=== PATIENT | male | born 1990 | race Caucasian/White ===

== ENCOUNTER 2022-08-13 13:48 | Emergency (ER) | payer MEDICAID, SELFPAY ==
[2022-08-13 14:46] VITALS: BP 122/103; PULSE 78; RESP 20; TEMP 36.6; O2SAT 99; BMI 23.1
--- NOTE | 2022-08-13 15:03 | ED_ITS ---
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 He describes no history of withdrawal seizures or significant withdrawal problems. He denies other medical issues other than stomach ulcers from drinking. He does not report he has had a history of esophageal varices, he has had no cough, fever, diarrhea, melena, hematochezia. He lives in his . He has no chest pain shortness of breath. He presents to ED for help with his feelings of dehydration and anxiety Related Data Allergies Allergy/AdvReac Type Severity Reaction Status Date / Time No Known Drug Allergies Allergy Verified 08/13/22 14:46 Review of Systems Status of ROS: Reports: 10 or more systems reviewed and unremarkable except as noted in History and below PFSH PFS Social History Smoking Status: Current every day smoker What tobacco products do you use: cigarettes Smoking packs per day: 1 Smoking cigarettes per day: 20.0 Years smoked: 6 Smoking pack-years: 6.00 Do you use any of these nicotine containing products: None Second hand tobacco smoke exposure: Yes How often do you have a drink containing alcohol: 4 or more times a week How many standard drinks containing alcohol do you have on a typical day: 10 or more How often do you have six or more drinks on one occasion: Daily or almost daily AUDIT-C Alcohol total score: 12 Non-prescribed substance use: denies use service: No Exam Narrative: Exam Narrative: Objective: Patient's vital signs are largely unremarkable other than elevated diastolic blood pressure, O2 sat 99% on room air In general alert orient x3, appears non intoxicated, but does smell slightly of alcohol. HEENT is unremarkable no facial asymmetry Pulses regular Abdomen benign soft nontender Extremities are no edema Neurologic not grossly nonfocal Skin warm and dry in the periphery Const: Vital Signs, click to edit/add: Vital Signs - 24 hr 08/13/22 14:46 Temperature 97.8 F Pulse Rate [Pulse Oximeter] 78 Respiratory Rate 20 Blood Pressure [Ri ght Upper Arm] 122/103 H Pulse Oximetry 99 Oxygen Delivery Me thod Room Air Course Vital Signs Vital signs: Initial Vital Signs Temperature 97.8 F 08/13/22 14:46 Temperature Source Temporal Artery Scan 08/13/22 14:46 Pulse Rate 78 08/13/22 14:46 Pulse Rhythm 08/13/22 14:46 Respiratory Rate 20 08/13/22 14:46 Blood Pressure 122/103 H 08/13/22 14:46 Blood Pressure Mean 109 08/13/22 14:46 Blood Pressure Position Supine 08/13/22 14:46 Pulse Oximetry 99 08/13/22 14:46 Oxygen Delivery Method 08/13/22 14:46 Vital Signs Temperature 97.8 F 08/13/22 14:46 Pulse Rate 78 08/13/22 14:46 Respiratory Rate 20 08/13/22 14:46 Blood Pressure 122/103 H 08/13/22 14:46 Pulse Oximetry 99 08/13/22 14:46 Oxygen Delivery Method 08/13/22 14:46 Temperature 97.8 F 08/13/22 14:46 Pulse Rate 78 08/13/22 14:46 Respiratory Rate 20 08/13/22 14:46 Blood Pressure 122/103 H 08/13/22 14:46 Pulse Oximetry 99 08/13/22 14:46 Oxygen Delivery Method 08/13/22 14:46 Medical Decision Making MDM Narrative Medical decision making narrative: Patient is a 32-year-old white male alcoholic who reports not drinking since l ast night, but has significant anxiety, feelings of dehydration, feelings of upset stomach. He has had no vomiting, no melena no hematochezia. Patient's hemodynamics appear stable. The patient this point I think would benefit from IV fluid, IV Ativan for his anxiety, Zofran for nausea, will check his electrolytes and CBC as well as LFT and amylase. Disposition pending findings above. He does report he has a show horse driver to pick him up here Addendum: The patient feels markedly better after Ativan and IV fluid. His laboratory studies look pretty reassuring, he does have elevated liver function test consistent with his heavy alcohol use. His alcohol level is 0.1. I would recommend he talk to a regular physician within the next couple of days regarding anxiety medication, drinking reduction/cessation. He did not want me to set up an appointment with 1 of our clinic doctors here, and prefers to set this up on his own. He can return if there is problems or concerns. Lab Data Labs: Lab Results 08/13/22 08/13/22 08/13/22 Range/Units 15:15 15:15 15:15 WBC 5.59 (4.50-11.00) K/uL RBC 4.67 (4.30-5.90) m/uL Hgb 15.0 (13.5-17.5) gm/dL Hct 43.8 (37.0-53.0) % MCV 94 (80-100) fL MCH 32 (26-34) pg MCHC 34 (32-36) gm/dL RDW Coeff of Magdalena 11.8 (11.5-15.5) % Plt Count 284 (140-440) K/uL Neut % (Auto) 68.4 (42.0-72.0) % Lymph % (Auto) 18.8 L (20-44) % Mckinley % (Auto) 11.1 H (0.0-11.0) % Eos % (Auto) 0.7 (0.0-7.0) % Baso % (Auto) 0.5 (0.0-3.0) % Neut # (Auto) 3.82 (1.7-7.0) K/uL Lymph # (Auto) 1.10 (0.90-2.90) K/uL [place]ck[place]ley # (Auto) 0.60 (0.00-0.90) K/UL Eos # (Auto) 0.04 (0.00-0.50) K/uL Baso # (Auto) 0.03 (0.00-0.30) K/uL Abs Immat Gran (auto) 0.03 (0.00-0.30) K/uL Sodium 139 (135-149) mmol/L Potassium 4.0 (3.6-5.1) mmol/L Chloride 100 (96-114) mmol/L Carbon Dioxide 25 (20-32) mmol/L BUN 9 (5-24) mg/dL Creatinine 0.8 (0.5-1.5) mg/dL Estimated Creat Clear 141.91 Estimated GFR 119 ml/min Glucose 94 (60-115) mg/dL Calcium 9.4 (8.4-10.6) mg/dL Total Bilirubin 0.6 (0.1-1.5) mg/dL Direct Bilirubin 0.1 (0.0-0.5) mg/dL AST 133 H (12-35) U/L ALT 117 H (4-50) U/L Alkaline Phosphatase 100 (40-150) U/L C-Reactive Protein < 0.5 L (0.5-1.0) mg/dL Total Protein 7.8 (6.0-8.3) g/dL Albumin 5.0 (3.3-5.0) g/dL Amylase 81 (18-89) U/L Ethyl Alcohol 0.10 H (0.01-0.03) % Discharge Plan Discharge Clinical Impression: Acute alcoholism, Anxiety, Dehydration Patient Disposition: Home w/ Parent or Adult Condition: Improved Additional Instructions: Seek help to stop drinking, push p.o. fluids, rest, light activity, follow up with regular doctor within the next 2 days, return to ED sooner problems concerns. Activity Level: Light activity Discharge Diet: Low Fat/Low Cholesterol Stand Alone Forms: [employer] Info Instructions
[2022-08-13] MEDS: LORazepam 2 MG/ML inj 1 MG IVP (15:24)
[2022-08-13] MEDS: ONDANSETRON 2 MG/ML inj 4 MG IVP (15:24)
[2022-08-13] MEDS: 0.9 % SODIUM CHLORIDE 1000 ml 1,000 ML 6000 ML IV (15:25)
[2022-08-13 15:41] LABS: Basophils Absolute Auto 0.03 K/uL (0.00-0.30); Basophils Percent Auto 0.5 % (0.0-3.0); Eosinophils Absolute Auto 0.04 K/uL (0.00-0.50); Eosinophils Percent Auto 0.7 % (0.0-7.0); Hematocrit 43.8 % (37.0-53.0); Immature Granulocytes Abs Auto 0.03 K/uL (0.00-0.30); Lymphocytes Percent Auto 18.8 % (20-44); Mean Corpuscular HGB Conc 34 gm/dL (32-36); Mean Corpuscular Hemoglobin 32 pg (26-34); Mean Corpuscular Volume 94 fL (80-100); Monocytes Percent Auto 11.1 % (0.0-11.0); Neutrophils Absolute Auto 3.82 K/uL (1.7-7.0); Neutrophils Percent Auto 68.4 % (42.0-72.0); Platelet Count* 284 K/uL (140-440); RDW Coefficient of Variation % 11.8 % (11.5-15.5); Red Blood Count 4.67 m/uL (4.30-5.90); White Blood Count* 5.59 K/uL (4.50-11.00)
[2022-08-13 15:52] LABS: Slide Review Reflex No
[2022-08-13 15:53] LABS: Chloride* 100 mmol/L (96-114)
[2022-08-13 15:54] LABS: Sodium* 139 mmol/L (135-149)
[2022-08-13 15:55] LABS: Aspartate Amino Transferase* 133 U/L (12-35); Bilirubin Direct* 0.1 mg/dL (0.0-0.5); Bilirubin Total* 0.6 mg/dL (0.1-1.5); Total Protein* 7.8 g/dL (6.0-8.3)
[2022-08-13 15:56] LABS: Alanine Aminotransferase* 117 U/L (4-50); Alkaline Phosphatase* 100 U/L (40-150); Amylase* 81 U/L (18-89); Creatinine* 0.8 mg/dL (0.5-1.5); Est. Creatinine Clearance* 141.91; Estimated Glomerular Filt Rate 119 ml/min
[2022-08-13 15:57] LABS: Blood Urea Nitrogen* 9 mg/dL (5-24); Calcium* 9.4 mg/dL (8.4-10.6); Carbon Dioxide* 25 mmol/L (20-32); Glucose* 94 mg/dL (60-115)
[2022-08-13 16:00] LABS: C Reactive Protein* < 0.5 mg/dL (0.5-1.0)
== END 2022-08-13 16:30 | disposition home or self-care (01) ==
PROVIDERS: Emergency Provider Family Medicine
DX: F10.20 Alcohol dependence, uncomplicated (principal); F41.9 Anxiety disorder, unspecified
CPT/HCPCS: 36415; 80048; 80076; 82077; 82150; 85025; 86140; 87502; 87634; 87635; 96374; 96375; 99284; J2060; J2405; J7030

== ENCOUNTER 2023-03-05 12:56 | Emergency (ER) | payer OTHER, MEDICAID, SELFPAY ==
[2023-03-05] VITALS (9 sets, daily range): BP systolic 115–122; BP diastolic 74–81; PULSE 59–88; RESP 18; TEMP 36.9; O2SAT 99–100; BMI 24.4
--- NOTE | 2023-03-05 13:23 | ED_ITS ---
HPI - General Adult General Chief complaint: Nausea/Vomiting Stated complaint: throwing up blood Time Seen by Provider: 03/05/23 13:08 History of Present Illness HPI narrative: This 33-year-old male comes in reporting upper epigastric abdominal pain with episodes of vomiting. These symptoms began last night. He states that he vomited 4 times in the last couple times hat what looked like blood. The 3rd episode was dark colored and the 4th 1 was more red colored blood. He does comp preet of severe upper epigastric abdominal pain he states that he was a heavy alcohol user and had some associated ulcerations in his abdomen. He quit using alcohol 5 months ago and it has changed his life significantly for the good. He does not report a prior history of pancreatitis. He has not had any ongoing vomiting or sign of GI bleeding for the past 8 or 10 hours. Related Data Previous Rx's Medication Instructions Recorded pantoprazole 20 mg tablet,delayed 20 mg PO DAILY #30 tabs 03/05/23 release (Protonix) Allergies Allergy/AdvReac Type Severity Reaction Status Date / Time No Known Drug Allergies Allergy Verified 03/05/23 13:13 Review of Systems Status of ROS: Reports: 10 or more systems reviewed and unremarkable except as noted in History and below Narrative: Constitutional: No fevers, no weight gain or loss. Eyes: No discharge. No vision changes. HENT: No congestion, no sore throat, no ear pain. Cardiovascular: No chest pain, no palpitations. Respiratory: No shortness of breath, no wheezes, no cough. Gastrointestinal: Upper epigastric abdominal pain. Nausea with vomiting x4 with some evidence of blood in the vomit. Genitourinary: No dysuria, no hematuria. Musculoskeletal: Normal range of motion. Skin: No rashes, no pruritis. Neurological: No dizziness, weakness, sensory change, speech change. Endo/Heme/Allergies: No bruising or bleeding. No polydipsia. Pysch: no suicidality, no anxiety, no insomnia. All other systems reviewed and are negative. [facility] Social History Smoking Status: Current every day smoker What tobacco products do you use: ci garettes Smoking packs per day: 1 Smoking cigarettes per day: 20.0 Years smoked: 6 Smoking pack-years: 6.00 Do you use any of these nicotine containing products: None Second hand tobacco smoke exposure: Yes How often do you have a drink containing alcohol: never How many standard drinks containing alcohol do you have on a typical day: 10 or more How often do you have six or more drinks on one occasion: Never AUDIT-C Alcohol total score: 4 Non-prescribed substance use: denies use service: No Exam Narrative: Exam Narrative: Constitutional: Well-developed, well-nourished, no acute distress. HEENT: Normocephalic, atraumatic. Neck: Normal range of motion. Nontender. Supple. Heart: Regular. No murmurs. Normal rate. Intact distal pulses. Lungs: Clear to auscultation. No chest discomfort. No wheezes, rhonchi, or rales. Abdomen: Normal bowel sounds. Severe tenderness in the upper epigastric region. No rebound tenderness. Genitalia: Deferred. Back: No midline tenderness. Normal range of motion. Extremities: Normal range of motion. No injury. Skin: Intact. No rash. Warm. No erythema or pallor. Neurologic: No altered sensation. No weakness. Alert and oriented. Psychiatric: No suicidality. No anxiety or depression. No insomnia. Nursing notes and vitals signs are reviewed. Const: Vital Signs, click to edit/add: Vital Signs - 24 hr 03/05/23 13:07 Temperature 98.4 F Pulse Rate [Pulse Oximeter] 83 Respiratory Rate 18 Blood Pressure [Ri ght Upper Arm] 122/74 Pulse Oximetry 100 Oxygen Delivery Me thod Room Air Course Vital Signs Vital signs: Initial Vital Signs Temperature 98.4 F 03/05/23 13:07 Temperature Source Temporal Artery Scan 03/05/23 13:07 Pulse Rate 83 03/05/23 13:07 Respiratory Rate 18 03/05/23 13:07 Blood Pressure 122/74 03/05/23 13:07 Blood Pressure Mean 90 03/05/23 13:07 Blood Pressure Position Supine 03/05/23 13:07 Pulse Oximetry 100 03/05/23 13:07 Oxygen Delivery Method Room Air 03/05/23 13:07 Vital Signs Temperature 98.4 F 03/05/23 13:07 Pulse Rate 83 03/05/23 13:07 Respiratory Rate 18 03/05/23 13:07 Blood Pressure 122/74 03/05/23 13:07 Pulse Oximetry 100 03/05/23 13:07 Oxygen Delivery Method Room Air 03/05/23 13:07 Temperature 98.4 F 03/05/23 13:07 Pulse Rate 83 03/05/23 13:07 Respiratory Rate 18 03/05/23 13:07 Blood Pressure 122/74 03/05/23 13:07 Pulse Oximetry 100 03/05/23 13:07 Oxygen Delivery Method Room Air 03/05/23 13:07 Medical Decision Making MDM Narrative Medical decision making narrative: This patient comes in with severe upper epigastric abdominal pain with vomiting episodes as described above. An IV was established and labs are acquired which returned with reassuring results. The patient received a L of normal saline and 4 mg of Zofran. He also received a GI cocktail which brought great relief to his abdominal pain. He states that he is feeling much better. He did receive a prescription for Protonix. I advised him regarding plans going forward if his symptoms are recurrent or worsening. Lab Data Labs: Lab Results 03/05/23 Range/Units 13:40 WBC 8.23 (4.50-11.00) K/uL RBC 5.43 (4.30-5.90) m/uL Hgb 16.2 (13.5-17.5) gm/dL Hct 47.2 (37.0-53.0) % MCV 87 (80-100) fL MCH 30 (26-34) pg MCHC 34 (32-36) gm/dL RDW Coeff of Magdalena 11.9 (11.5-15.5) % Plt Count 281 (140-440) K/uL Neut % (Auto) 86.1 H (42.0-72.0) % Lymph % (Auto) 6.8 L (20-44) % [place] % (Auto) 6.3 (0.0-11.0) % Eos % (Auto) 0.5 (0.0-7.0) % Baso % (Auto) 0.1 (0.0-3.0) % Neut # (Auto) 7.10 H (1.7-7.0) K/uL Lymph # (Auto) 0.60 L (0.90-2.90) K/uL [place] # (Auto) 0.50 (0.00-0.90) K/UL Eos # (Auto) 0.04 (0.00-0.50) K/uL Baso # (Auto) 0.01 (0.00-0.30) K/uL Sodium 138 (135-149) mmol/L Potassium 4.3 (3.6-5.1) mmol/L Chloride 104 (96-114) mmol/L Carbon Dioxide 24 (20-32) mmol/L BUN 19 (5-24) mg/dL Creatinine 0.9 (0.5-1.5) mg/dL Estimated Creat Clear 122.01 Estimated GFR 114 ml/min Glucose 107 (60-115) mg/dL Calcium 9.3 (8.4-10.6) mg/dL Total Bilirubin 0.9 (0.1-1.5) mg/dL Direct Bilirubin 0.2 (0.0-0.5) mg/dL AST 23 (12-35) U/L ALT 36 (4-50) U/L Alkaline Phosphatase 70 (40-150) U/L Total Protein 8.0 (6.0-8.3) g/dL Albumin 4.9 (3.3-5.0) g/dL Lipase 55 (23-300) U/L Discharge Plan Discharge Clinical Impression: Gastritis Patient Disposition: Home, Self-Care Condition: Improved Additional Instructions: Take medication as prescribed. Follow up with MD or return if symptoms are recurrent or worsening. Prescriptions: New pantoprazole [Protonix] 20 mg tablet,delayed release (DR/EC) 20 mg PO DAILY Qty: 30 2RF Follow Up/Referrals: Provider,Not a Local [Primary Care Provider] - Stand Alone Forms: [employer] Info Instructions
--- OUTSIDE RECORDS SUMMARY | 2023-03-05 13:31 | XMS_ITS ---
Author Name Hernandez Chana Address [address] [place] [address] Organization [facility] - Primary Address [address] [place] [phone] Care Team Providers Care Territory Outside Sales Manager Name Role Phone David Chana Unavailable [phone] PROBLEMS Type Condition ICD9-CM Code [id number] Code Onset Dates Condition Status SNOMED Code Problem Post-traumatic stress disorder, chronic F43.12 Active 02446507 ALLERGIES No Known Allergies ENCOUNTERS Encounter Location Date Diagnosis [facility] [address] [address] Nov, Post-traumatic stress disorder, chronic F43.12 [facility] [address] [address] Nov, Post-traumatic stress disorder, chronic F43.12 [facility] Primary [address] [place] [phone] Oct, [facility] Primary [address] [place] [phone] Jun, Post-traumatic stress disorder, chronic F43.12 [facility] - [facility] [address] [place] [phone] May, Post-traumatic stress disorder, chronic F43.12 IMMUNIZATIONS No Known Immunizations SOCIAL HISTORY Qualifiers Date Current Smoker REASON FOR REFERRAL FUNCTIONAL STATUS PLAN OF CARE VITAL SIGNS MEDICATIONS Unknown Medications PROCEDURES Procedure Date Ordered Result Body Site PSYTX PT&/FAMILY 60 MINUTES Nov 16, 2020 PSYTX PT&/FAMILY 60 MINUTES Nov 14, 2020 PSYCH DIAGNOSTIC EVALUATION May 14, 2020 RESULTS No Results REASON FOR VISIT Anxiety, panic attacks, Anxiety, panic attacks, cannabis f/u, PTSD, PTSD, cannabis cert, Anxiety, panic attacks, zoom Insurance Providers Health Insurance Type Health Plan Insurance Address Health Plan Insurance Phone Health Plan Insurance Name Health Plan Coverage Dates Member ID Patient Relationship to Subscriber Patient Address Patient Phone Patient Name Patient Date of Subscriber ID Subscriber Name Subscriber Date of Group No [place] [address] [address] [facility] [address] [place] self Ag Bentley [id number] [facility] [address] [facility] [address] [facility] self Ag Bentley [id number] [facility] [place] [address] [facility] [address] [facility] self Ag Bentley [id number] [facility]
--- OUTSIDE RECORDS SUMMARY | 2023-03-05 13:31 | XMS_ITS ---
Author Name Hernandez Chana Address [address] [place] [phone] Organization [facility] - Primary Address [address] [place] [phone] Care Team Providers Care Signs Sales Representative Name Role Phone David Chana Unavailable [phone] PROBLEMS Type Condition ICD9-CM Code [id number] Code Onset Dates Condition Status SNOMED Code Problem Post-traumatic stress disorder, chronic F43.12 Active [id number] ALLERGIES No Known Allergies ENCOUNTERS Encounter Location Date Diagnosis [facility] [address] [address] Nov, Post-traumatic stress disorder, chronic F43.12 [facility] [address] [address] Nov, Post-traumatic stress disorder, chronic F43.12 [facility] [address] [place] [phone] Oct, [facility] [address] [place] [phone] Jun, Post-traumatic stress disorder, chronic F43.12 [facility] - [facility] [address] [place] [phone] May, Post-traumatic stress disorder, chronic F43.12 IMMUNIZATIONS No Known Immunizations SOCIAL HISTORY Qualifiers Date Current Smoker REASON FOR REFERRAL FUNCTIONAL STATUS PLAN OF CARE VITAL SIGNS MEDICATIONS Unknown Medications PROCEDURES Procedure Date Ordered Result Body Site PSYTX PT&/FAMILY 60 MINUTES Nov 14, 2020 PSYTX PT&/FAMILY 60 MINUTES Nov 16, 2020 PSYCH DIAGNOSTIC EVALUATION May 14, 2020 [...] Subscriber Name Subscriber Date of Group No [facility] [address] [facility] [address] [facility] [place] self Ag Bentley [id number] [facility] [address] [address] [facility] [address] [place] self Ag Bentley [id number] [facility] [address] [facility] [address] [facility] self Ag Bentley [id number] [facility]
[2023-03-05] MEDS: KETOROLAC 30 MG/ML inj IVP (13:41)
[2023-03-05] MEDS: GI COCKTAIL (VISC LIDO/ANTACID) 30 ML PO (13:41)
[2023-03-05] MEDS: ONDANSETRON 2 MG/ML inj 4 MG IVP (13:41)
[2023-03-05] MEDS: 0.9 % SODIUM CHLORIDE 1000 ml 1,000 ML IV (13:44)
[2023-03-05 14:09] LABS: Basophils Absolute Auto 0.01 K/uL (0.00-0.30); Basophils Percent Auto 0.1 % (0.0-3.0); Eosinophils Absolute Auto 0.04 K/uL (0.00-0.50); Eosinophils Percent Auto 0.5 % (0.0-7.0); Hematocrit 47.2 % (37.0-53.0); Hemoglobin* 16.2 gm/dL (13.5-17.5); Immature Granulocytes Abs Auto 0.02 K/uL (0.00-0.30); Immature Granulocytes Pct Auto 0.2 %; Lymphocytes Percent Auto 6.8 % (20-44); Mean Corpuscular HGB Conc 34 gm/dL (32-36); Mean Corpuscular Hemoglobin 30 pg (26-34); Mean Corpuscular Volume 87 fL (80-100); Monocytes Percent Auto 6.3 % (0.0-11.0); Neutrophils Percent Auto 86.1 % (42.0-72.0); Platelet Count* 281 K/uL (140-440); RDW Coefficient of Variation % 11.9 % (11.5-15.5); Red Blood Count 5.43 m/uL (4.30-5.90); White Blood Count* 8.23 K/uL (4.50-11.00)
[2023-03-05 14:13] LABS: Albumin* 4.9 g/dL (3.3-5.0); Chloride* 104 mmol/L (96-114); Sodium* 138 mmol/L (135-149)
[2023-03-05 14:14] LABS: Potassium* 4.3 mmol/L (3.6-5.1)
[2023-03-05 14:16] LABS: Alkaline Phosphatase* 70 U/L (40-150); Aspartate Amino Transferase* 23 U/L (12-35); Bilirubin Direct* 0.2 mg/dL (0.0-0.5); Bilirubin Total* 0.9 mg/dL (0.1-1.5); Blood Urea Nitrogen* 19 mg/dL (5-24); Carbon Dioxide* 24 mmol/L (20-32); Creatinine* 0.9 mg/dL (0.5-1.5); Est. Creatinine Clearance* 122.01; Estimated Glomerular Filt Rate 114 ml/min; Glucose* 107 mg/dL (60-115); Lipase* 55 U/L (23-300)
[2023-03-05 14:17] LABS: Alanine Aminotransferase* 36 U/L (4-50); Calcium* 9.3 mg/dL (8.4-10.6)
[2023-03-05 14:19] LABS: Slide Review Reflex No
== END 2023-03-05 15:12 | disposition home or self-care (01) ==
PROVIDERS: Emergency Provider Emergency Medicine Emergency Medical Services
DX: K29.70 Gastritis, unspecified, without bleeding (principal)
CPT/HCPCS: 36415; 80048; 80076; 83690; 85025; 96374; 96375; 99283; 99284; A9270; J1885; J2405; J7030

== ENCOUNTER 2023-08-04 12:53 | Emergency (ER) | payer MEDICARE, SELFPAY ==
--- OUTSIDE RECORDS SUMMARY | 2023-08-04 14:09 | XMS_ITS | Patient Health Record ---
Author Name Unknown Organization [facility] - Primary Address [address] [facility] [address] [place] [address] Care Team Providers Care Insulator Technician Name Role Phone Different, PCP Primary Care Provider Unavailabl e REASON FOR REFERRAL No Information SOCIAL HISTORY Tobacco Use: Social History Observation Description Date Details (start date - stop date) Current Smoker NA - NA Sex Assigned At : Social History Observation Description Sex Assigned At Unknown Smoking Question Answer Notes Are you a: current smoker How often do you smoke cigarettes? every day How many cigarettes a day do you smoke? 11-20 PROBLEMS Problem Type ICD Code Onset Dates Problem Status W/U Status Risk SNOMED Code Notes Problem Post-traumat ic stress disorder, chronic (F43.12) Active confirmed Posttraumatic stress disorder ([id number]) PLAN OF TREATMENT No Information Insurance Providers Payer Name Payer Address Payer Phone Subscriber Number Group Number Insured Name Patient Relationship to Insured Coverage Start Date Coverage End Date [facility] [address] [place] [address] [id number] Ag Dykes Self - patient is the insured [employer] [facility] [address] [place] [address] [phone] [id number] Ag Dykes Self - patient is the insured MEDICAL (GENERAL) HISTORY Medical History History ICD Code PTSD Surgical History Surgery Date(Month/Year) collar bone Rt Hospitalization History Reason Date(Month/Year) ER with chest pain [place] 03/2020
--- NOTE | 2023-08-04 20:09 | ED.GENADULT ---
HPI - General Adult General Stated complaint: Withdrawal, panic attacks Time Seen by Provider: 08/04/23 14:04 History of Present Illness HPI narrative: This patient presented to the ER on 08/04/2023. He was not seen by myself or another medical provider. He signed refusal and left from the ER lobby. Related Data Previous Rx's Medication Instructions Recorded pantoprazole 20 mg tablet,delayed 20 mg PO DAILY #30 tabs 03/05/23 release (Protonix) Allergies Allergy/AdvReac Type Severity Reaction Status Date / Time No Known Drug Allergies Allergy Verified 03/05/23 13:13 PFSH PFS Social History Smoking Status: Current every day smoker What tobacco products do you use: cigarettes Smoking packs per day: 1 Smoking cigarettes per day: 20.0 Years smoked: 6 Smoking pack-years: 6.00 Do you use any of these nicotine containing products: None Second hand tobacco smoke exposure: Yes How often do you have a drink containing alcohol: never How many standard drinks containing alcohol do you have on a typical day: 10 or more How often do you have six or more drinks on one occasion: Never AUDIT-C Alcohol total score: 4 Non-prescribed substance use: denies use service: No Discharge Plan Discharge Patient Disposition: Left Without Being Seen
== END 2023-08-04 14:11 | disposition left against medical advice (07) ==
LOC: ED 14:07
PROVIDERS: Emergency Provider Emergency Medicine
DX: Z53.21 Procedure and treatment not carried out due to patient leaving prior to being seen by health care provider (principal)
CPT/HCPCS: 99281

== ENCOUNTER 2023-09-13 16:19 | Emergency (ER) | payer MEDICARE, SELFPAY ==
[2023-09-13 16:28] VITALS: BP 136/89; PULSE 78; RESP 18; TEMP 37.1; O2SAT 96; BMI 23.7
--- NOTE | 2023-09-13 17:39 | CRLHL7_ITS ---
For Patients: As a result of the Cures Act, medical imaging exams and procedure reports are released immediately into your electronic medical record. You may view this report before your referring provider. If you have questions, please contact your health care provider. INDICATION: Chest pain TECHNIQUE: Chest 2 views. COMPARISON: None FINDINGS: The heart is normal in size. The pulmonary vasculature is within normal limits. The lungs are clear without focal consolidation, pleural effusion or pneumothorax. Postsurgical changes of the right clavicle. IMPRESSION: No acute process. Dictated by Aurea Landon MD @ 09/13/2023 6:09:40 PM Dictated by: Aurea Landon MD @ 09/13/2023 18:09:46 (Electronically Signed)
[2023-09-13 18:09] LABS: Amphetamine Screen Urine Negative (Negative); Barbiturate Screen Urine Negative (Negative); Benzodiazepines Screen Urine Negative (Negative); Cannabinoid Screen Urine Negative (Negative); Cocaine Screen Urine Negative (Negative); Methadone Screen Urine Negative (Negative); Methamphetamines Screen Urine Negative (Negative); Opiate Screen Urine Negative (Negative); Oxycodone Screen Urine POSITIVE (Negative); Phencyclidine Screen Urine Negative (Negative); Tricyclic Antidepressant Urine Negative (Negative)
--- OUTSIDE RECORDS SUMMARY | 2023-09-13 18:17 | XMS_ITS | Patient Health Record ---
Author Name Unknown Organization [facility] - Primary Address [address] [facility] [address] [place] [address] Care Team Providers Care Toll Testboard Worker Name Role Phone Different, PCP Primary Care [...] chronic (F43.12) Active confirmed Posttraumatic stress disorder ([id number]) PLAN OF TREATMENT No Information Insurance Providers Payer Name Payer Address Payer Phone Subscriber Number Group Number Insured Name Patient Relationship to Insured Coverage Start Date Coverage End Date [facility] [address] [place] [address] [phone] [id number] Ag Dykes Self - patient is the insured [employer] [facility] [address] [place] [address] [phone] [id number] Ag Dykes Self - patient is the insured MEDICAL (GENERAL) HISTORY Medical History History ICD Code PTSD Surgical History Surgery Date(Month/Year) collar bone Rt Hospitalization History Reason Date(Month/Year) ER with chest pain [place] 03/2020
[2023-09-13 18:18] LABS: Basophils Absolute Auto 0.03 K/uL (0.00-0.30); Basophils Percent Auto 0.5 % (0.0-3.0); Eosinophils Absolute Auto 0.02 K/uL (0.00-0.50); Eosinophils Percent Auto 0.3 % (0.0-7.0); Hematocrit 48.3 % (37.0-53.0); Hemoglobin* 16.6 gm/dL (13.5-17.5); Immature Granulocytes Abs Auto 0.03 K/uL (0.00-0.30); Immature Granulocytes Pct Auto 0.5 %; Lymphocytes Absolute Auto 2.21 K/uL (0.90-2.90); Lymphocytes Percent Auto 35.5 % (20-44); Mean Corpuscular HGB Conc 34 gm/dL (32-36); Mean Corpuscular Hemoglobin 31 pg (26-34); Mean Corpuscular Volume 89 fL (80-100); Monocytes Percent Auto 7.2 % (0.0-11.0); Neutrophils Absolute Auto 3.48 K/uL (1.7-7.0); Platelet Count* 272 K/uL (140-440); RDW Coefficient of Variation % 12.5 % (11.5-15.5); Red Blood Count 5.42 m/uL (4.30-5.90); White Blood Count* 6.22 K/uL (4.50-11.00)
[2023-09-13] MEDS: ONDANSETRON 2 MG/ML inj 4 MG IVP (18:18)
[2023-09-13] MEDS: LACTATED RINGERS 1000 ML 1,000 ML IV (18:19)
[2023-09-13] MEDS: THIAMINE 100 MG TABLET PO (18:19)
[2023-09-13] MEDS: LORazepam 2 MG/ML inj 0.5 MG IVP (18:19)
[2023-09-13 18:21] LABS: Albumin* 5.2 g/dL (3.3-5.0); Chloride* 104 mmol/L (96-114); Potassium* 3.6 mmol/L (3.6-5.1); Sodium* 144 mmol/L (135-149)
[2023-09-13 18:24] LABS: Alkaline Phosphatase* 97 U/L (40-150); Anion Gap 16 mEq/L (7-15); Aspartate Amino Transferase* 60 U/L (12-35); Bilirubin Total* 0.6 mg/dL (0.1-1.5); Blood Urea Nitrogen* 11 mg/dL (5-24); Carbon Dioxide* 24 mmol/L (20-32); Creatinine* 0.8 mg/dL (0.5-1.5); Est. Creatinine Clearance* 141.46; Estimated Glomerular Filt Rate 118 ml/min; Glucose* 127 mg/dL (60-115); Lipase* 325 U/L (23-300); Total Protein* 8.7 g/dL (6.0-8.3)
[2023-09-13 18:25] LABS: Alanine Aminotransferase* 55 U/L (4-50); Calcium* 9.6 mg/dL (8.4-10.6); Magnesium* 2.6 mg/dL (1.5-2.6)
[2023-09-13 18:29] LABS: Slide Review Reflex No
--- NOTE | 2023-09-13 19:05 | ED.ALCOHOL ---
HPI - Alcohol General Date Seen: 09/13/23 Chief Complaint: Alcohol/Intoxication Stated Complaint: alc withdrawl, irregular heartbeat Time Seen by Provider: 09/13/23 17:32 Source: patient Mode of arrival: ambulatory Limitations: no limitations History of Present Illness HPI narrative: Patient is a 33-year-old male presenting to emergency department for alcohol intoxication. He states he has been very anxious and dehydrated. States for the past several months he has been drinking 1.75 L of alcohol a day. Says he has had about a L worth of alcohol today. Surgery again this morning at 07:30. States his last drink was about 2 hours ago. Patient states he is concerned he was withdrawing so he came to the emergency department. Denies hallucinations, shortness of breath, weakness, numbness, headache, vision changes. He states he feels very dehydrated. This states he has been having chest pain for the past couple days. Denies having symptoms like this before. Related Data Allergies Allergy/AdvReac Type Severity Reaction Status Date / Time No Known Drug Allergies Allergy Verified 03/05/23 13:13 Review of Systems Status of ROS Reports: 10 or more systems reviewed and unremarkable except as noted in History and below [facility] Social History Smoking Status: Current every day smoker What tobacco products do you use: cigarettes Smoking packs per day: 1 Smoking cigarettes per day: 20.0 Years smoked: 6 Smoking pack-years: 6.00 Do you use any of these nicotine containing products: None Second hand tobacco smoke exposure: Yes How often do you have a drink containing alcohol: never How many standard drinks containing alcohol do you have on a typical day: 10 or more How often do you have six or more drinks on one occasion: Never AUDIT-C Alcohol total score: 4 Non-prescribed substance use: denies use service: No Exam Narrative: Exam Narrative: Const: Well-nourished, Well-developed, in mild distress Eyes: PERRL, no conjunctival injection, and symmetrical lids HENT: Atraumatic external nose and ears. Moist mucous membranes. Neck: Symmetric, trachea midline, No thyromegaly. CVS: RRR, No murmurs or gallops. Peripheral pulses 2+ and equal in all extremities RESP: Unlabored respiratory effort. Clear to auscultation bilaterally. GI: Nontender/Nondistended, No rebound or guarding. MSK:Extremities w/o deformity, Normal Active ROM Skin: Warm, Dry. No rashes or lesions. Neuro: Normal Muscle tone, No focal neurological deficits. Psych: Awake, Alert, & Oriented x3. Appropriate mood and affect. Const: Vital Signs, click to edit/add: Vital Signs - 24 hr 09/13/23 16:28 Temperature 98.7 F Pulse Rate [Pulse Oximeter] 78 Respiratory Rate 18 Blood Pressure [Ri ght Upper Arm] 136/89 Pulse Oximetry 96 Oxygen Delivery Me thod Room Air Course Vital Signs Vital signs: Initial Vital Signs Temperature 98.7 F 09/13/23 16:28 Temperature Source Temporal Artery Scan 09/13/23 16:28 Pulse Rate 78 09/13/23 16:28 Respiratory Rate 18 09/13/23 16:28 Blood Pressure 136/89 09/13/23 16:28 Blood Pressure Mean 104 09/13/23 16:28 Blood Pressure Position Supine 09/13/23 16:28 Pulse Oximetry 96 09/13/23 16:28 Oxygen Delivery Method Room Air 09/13/23 16:28 Vital Signs Temperature 98.7 F 09/13/23 16:28 Pulse Rate 78 09/13/23 16:28 Respiratory Rate 18 09/13/23 16:28 Blood Pressure 136/89 09/13/23 16:28 Pulse Oximetry 96 09/13/23 16:28 Oxygen Delivery Method Room Air 09/13/23 16:28 Temperature 98.7 F 09/13/23 16:28 Pulse Rate 78 09/13/23 16:28 Respiratory Rate 18 09/13/23 16:28 Blood Pressure 136/89 09/13/23 16:28 Pulse Oximetry 96 09/13/23 16:28 Oxygen Delivery Method Room Air 09/13/23 16:28 MDM - Alcohol MDM Narrative Medical decision making narrative: Patient is a 33-year-old male presenting emergency department her alcohol intoxication. He is here with his mom. He states he is set up to go to detox tomorrow morning and is just looking to help get by until then. States he is feeling dehydrated and very anxious. He is also having chest pain so cardiac workup was ordered. Chest x-ray, EKG, CMP, troponin, lipase, CBC, magnesium ordered. Also ordered a urine drug screen. Was given Zofran for nausea and Ativan for anxiety. Also given thiamine. Given 1 L of lactated Ringer's for dehydration. Lab ago returned showing no concerning abnormalities. Troponin within normal limits. AST and ALT are mildly elevated but not to the point where this of emergent concern. Drug screen is positive for oxycodone. Was was lab work showed no concerning findings. He is feeling better after medication but is still feeling anxious mildly in the lower dose of Ativan was given this time p.o.. He was concerned about withdrawals but considering the amount she drank an ritter recent his last drink was she this very unlikely be going through withdrawals at this time. He is resting comfortably in bed in over discharged home. He is agreeable to this plan. He is able to answer all questions appropriately in ambulate on his own safety. Lab Data Labs: Lab Results 09/13/23 09/13/23 09/13/23 Range/Units 17:39 17:43 17:54 WBC 6.22 (4.50-11.00) K/uL RBC 5.42 (4.30-5.90) m/uL Hgb 16.6 (13.5-17.5) gm/dL Hct 48.3 (37.0-53.0) % MCV 89 (80-100) fL MCH 31 (26-34) pg MCHC 34 (32-36) gm/dL RDW Coeff of Magdalena 12.5 (11.5-15.5) % Plt Count 272 (140-440) K/uL Neut % (Auto) 56.0 (42.0-72.0) % Lymph % (Auto) 35.5 (20-44) % [place] % (Auto) 7.2 (0.0-11.0) % Eos % (Auto) 0.3 (0.0-7.0) % Baso % (Auto) 0.5 (0.0-3.0) % Neut # (Auto) 3.48 (1.7-7.0) K/uL Lymph # (Auto) 2.21 (0.90-2.90) K/uL [place] # (Auto) 0.40 (0.00-0.90) K/UL Eos # (Auto) 0.02 (0.00-0.50) K/uL Baso # (Auto) 0.03 (0.00-0.30) K/uL Abs Immat Gran (auto) 0.03 (0.00-0.30) K/uL Imm/Tot Granulo (auto) 0.5 % Sodium 144 (135-149) mmol/L Potassium 3.6 (3.6-5.1) mmol/L Chloride 104 (96-114) mmol/L Carbon Dioxide 24 (20-32) mmol/L Anion Gap 16 H (7-15) mEq/L BUN 11 (5-24) mg/dL Creatinine 0.8 (0.5-1.5) mg/dL Estimated Creat Clear 141.46 Estimated GFR 118 ml/min Glucose 127 H (60-115) mg/dL Calcium 9.6 (8.4-10.6) mg/dL Magnesium 2.6 (1.5-2.6) mg/dL Total Bilirubin 0.6 (0.1-1.5) mg/dL AST 60 H (12-35) U/L ALT 55 H (4-50) U/L Alkaline Phosphatase 97 (40-150) U/L Total Protein 8.7 H (6.0-8.3) g/dL Albumin 5.2 H (3.3-5.0) g/dL Lipase 325 H (23-300) U/L Urine Opiates Screen Negative (Negative) Ur Oxycodone Screen POSITIVE A (Negative) Urine Methadone Screen Negative (Negative) Ur Propoxyphene Screen Not Reportable Ur Barbiturates Screen Negative (Negative) U Tricyclic Antidepress Negative (Negative) Ur Phencyclidine Scrn Negative (Negative) Ur Amphetamines Screen Negative (Negative) U Methamphetamines Scrn Negative (Negative) U Benzodiazepines Scrn Negative (Negative) Urine Cocaine Screen Negative (Negative) U Marijuana (THC) Screen Negative (Negative) Ur Drug Screen Comment See Note POC Troponin I 0.00 L (0.01-0.04) ng/ml Imaging Data Chest x-ray: Radiologist's impression: No acute process. Dictated by Aurea Landon MD @ 09/13/2023 6:09:40 PM ECG Data Attestation: I personally reviewed and interpreted this ECG as follows: Interpretation: Sinus tachycardia rate 102 beats per minute, normal intervals, normal axis, no ST or T-wave abnormalities Discharge Plan Discharge Clinical Impression: Alcoholic intoxication Qualifiers: Complication of substance-induced condition: uncomplicated Qualified Code(s): F10.920 - Alcohol use, unspecified with intoxication, uncomplicated Patient Disposition: Home, Self-Care Condition: Stable Instructions: Abuse of Alcohol (DC), Alcohol Withdrawal (ED) Additional Instructions: Follow-up with the detox center you are planning to see tomorrow. Return for new worsening symptoms. Signs of withdrawal including tremulousness, nausea/vomiting, insomnia, anxiety, seizures, hallucinations. Symptoms do not start for a paced 6 hours after last drink. Follow Up/Referrals: Provider,Not a Local [Primary Care Provider] - Stand Alone Forms: [email or web address] Info Instructions
[2023-09-13] MEDS: LORazepam 0.5 MG TABLET PO (19:34)
== END 2023-09-13 19:43 | disposition home or self-care (01) ==
PROVIDERS: Emergency Provider Student in an Organized Health Care Education/Training Program
DX: F10.129 Alcohol abuse with intoxication, unspecified (principal)
CPT/HCPCS: 36415; 71046; 80053; 80306; 83690; 83735; 84484; 85025; 96374; 96375; 99283; 99284; A9270; J2060; J2405; J7120

== ENCOUNTER 2024-03-12 14:28 | Emergency (ER) | payer MEDICARE, SELFPAY ==
[2024-03-12 14:32] VITALS: BP 131/89; PULSE 104; RESP 28; TEMP 36.6; O2SAT 99; BMI 25.1
--- NOTE | 2024-03-12 15:07 | ED_ITS ---
HPI - General Adult General Chief complaint: Dental/Oral/Mouth Injury/Pain Stated complaint: tooth infection Time Seen by Provider: 03/12/24 14:45 History of Present Illness HPI narrative: Patient here with upper left tooth pain x1 month. Has not seen a denist. History of alcoholism, said he fell off the wagon with the pain and has been using alcohol. Also endorses he is having anxiety. 34-year-old man presenting to the emergency department. He describes himself as being dehydrated and would like some IV fluids. Admittedly he has been drinking to deal with the pain that he has been having the left side of his face for the last month. He does admit to cracking his jaw a lot. Has had chronic neck and back issues sounds like what amounts to ?out of alignment? and does visit the chiropractor. About a month ago after cracking his jaw as per usual fashion he started having increased pain along the left side of his face. Pain and has alternated somewhat from the right to the left but seems to have settled more in the left. He believes is little swollen here. There has been no drainage does not believe that he is a tooth problem or least has not had before. He says he takes good care of his teeth and flosses. He is worried that he does have a dental infection at this point. No cold or heat sensitivity. Gets yearly cleanings. He does though grind his teeth. Endorses also lot of stress in his life. 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 Struggles with anxiety. Sister and mother have just moved to [place]. Father recently who was his best friend. Has also reached the end of a 5 year relationship recently as well. Says was doing well up until 6 days ago when went on a ?callahan?. Typically attends twice daily AA meetings. Does have 2 sponsors. Does recount alcohol withdrawal to some degree and reports that has self-detoxed typically. Apparently no seizures or hallucinations. Related Data Home Medications Medication Instructions Recorded Confirmed No Known Home Medications 03/13/24 03/13/24 Allergies Allergy/AdvReac Type Severity Reaction Status Date / Time No Known Drug Allergies Allergy Verified 03/05/23 13:13 Review of Systems Status of ROS: Reports: 6 or more systems reviewed and unremarkable except as noted in History and below PFSH PFS Social History Smoking Status: Current every day smoker What tobacco products do you use: cigarettes Smoking packs per day: 1 Smoking cigarettes per day: 20.0 Years smoked: 6 Smoking pack-years: 6.00 Do you use any of these nicotine containing products: None Second hand tobacco smoke exposure: Yes How often do you have a drink containing alcohol: never How many standard drinks containing alcohol do you have on a typical day: 10 or more How often do you have six or more drinks on one occasion: Never AUDIT-C Alcohol total score: 4 Non-prescribed substance use: denies use service: No Exam Narrative: Exam Narrative: Generally pleasant. Initially agitated. Calms over further conversation. Breathing easily. Carefully groomed with cowboy style/Western attire. Is numerous turquoise rings bracelets. Is not slurring his words though does appear to be intoxicated. Skin is warm and dry without evidence of injury. Moving all extremities without difficulty. Head is atraumatic. Neck is supple without lymphadenopathy. Dentition in good repair without reproducible tenderness. No swellings in the mouth. I can appreciate a slight asymmetry externally fullness in the right cheek versus the left but really nothing significant. There are no erythematous changes. Has no swelling specifically of the parotid gland. Area of maximal tenderness as he describes it appears to be in the left anterior masseter muscle. Somewhat but not primarily in the TMJ joint. TMs are clear. Ear canals without inflammation. No pain to palpation along the mandible or the upper jaw/maxilla directly. Heart is in elevated rate regular rhythm. Const: Vital Signs, click to edit/add: Vital Signs - 24 hr 03/12/24 14:32 Temperature 97.8 F Pulse Rate [Pulse Oximeter] 104 H Respiratory Rate 28 H Blood Pressure [Ri ght Upper Arm] 131/89 Pulse Oximetry 99 Oxygen Delivery Me thod Room Air Documenting provider has reviewed patient's vital signs: yes Course Vital Signs Vital signs: Initial Vital Signs Temperature 97.8 F 03/12/24 14:32 Temperature Source Temporal Artery Scan 03/12/24 14:32 Pulse Rate 104 H 03/12/24 14:32 Pulse Rhythm Regular 03/12/24 14:32 Respiratory Rate 28 H 03/12/24 14:32 Blood Pressure 131/89 03/12/24 14:32 Blood Pressure Mean 103 03/12/24 14:32 Blood Pressure Position Sitting 03/12/24 14:32 Pulse Oximetry 99 03/12/24 14:32 Oxygen Delivery Method Room Air 03/12/24 14:32 Vital Signs Temperature 97.8 F 03/12/24 14:32 Pulse Rate 104 H 03/12/24 14:32 Respiratory Rate 28 H 03/12/24 14:32 Blood Pressure 131/89 03/12/24 14:32 Pulse Oximetry 99 03/12/24 14:32 Oxygen Delivery Method Room Air 03/12/24 14:32 Temperature 97.8 F 03/12/24 14:32 Pulse Rate 104 H 03/12/24 14:32 Respiratory Rate 28 H 03/12/24 14:32 Blood Pressure 131/89 03/12/24 14:32 Pulse Oximetry 99 03/12/24 14:32 Oxygen Delivery Method Room Air 03/12/24 14:32 Medications Administered Medications: Discontinued Medications Generic Name Dose Route Start Last Admin Trade Name Elliotq PRN Reason Stop Dose Admin Folic Acid 1 mg/ Multivitamins 1,011.2 mls @ 1,000 mls/hr 03/12/24 15:28 03/12/24 17:29 10 ml/ Thiamine HCl 100 mg/ IV 03/12/24 16:28 Infused Sodium Chloride .Q1H1M LETI Infusion Lorazepam 1 mg 03/12/24 15:29 03/12/24 16:04 Lorazepam 2 Mg/Ml Inj IVP 03/12/24 15:30 1 mg ONCE ONE Administration Ondansetron HCl 4 mg 03/12/24 15:28 03/12/24 16:04 Ondansetron 2 Mg/Ml Inj IVP 03/12/24 15:29 4 mg ONCE ONE Administration Medical Decision Making MDM Narrative Medical decision making narrative: I suppose it is possible there is a tooth issue here but I can not reproduce it. I do think most likely this is temporomandibular joint dysfunction with regional pain. Certainly describes holding stress in this area. Complicating also is tendency to alcohol abuse/alcoholism. He intends towards self detox and is not interested in more formal detox at this time. He would however like some help with anxiety and a chance to rest. He is requesting banana bag if possible. And something for nausea. I think this is fine. We can treat this somewhat as a headache as well. Is anticipating playing a show this evening a believe in [place]. Treatment as above. Allowed to rest... sleep in the emergency department. Woke feeling markedly improved. Just prior to departure is requesting something further for nausea and anxiety going forward. In addition to outpatient follow-up recommended, I did prescribe hydroxyzine and Zofran. See patient discharge plan for further discussion Discharge Plan Discharge Clinical Impression: Jaw pain Patient Disposition: Home w/ Parent or Adult Condition: Improved Additional Instructions: It does appear as though you are having some pain related to the temporomandibular joint. I can not clearly identify a dental problem otherwise. I would get yourself a soft moldable silicone bite guard. Should be able to pick one of these up at [employer] or [employer]. Recommendations would be to wear this most nights for now. Can also search and fairly easily find TMJ exercises online to do once or twice a day However if this is not settling down in a few days or you have increased swelling, I would make available some penicillin to you. Would also take this list of dental clinics for follow-up if needed. They are also helpful in treating TMJ pain. Can take up to 800 mg of ibuprofen or up to 1000 mg of acetaminophen per dose. Alternative to the ibuprofen might be up to 500 mg naproxen 2 times daily. You do certainly have reasons to be experiencing a lot of stress which can manifest in physical pain. Yes. I do think it would be a good idea to reestablish with primary care. Sometimes medications are helpful to take enough of the edge off for one to begin self-sustaining better habits. Would also be a good idea to begin talking about what you are struggling with; though attending meetings and talking with your sponsor is certainly is a good place to start. Admitted we are limited in our ability to make arrangements/appointments over the weekend but here also is a list of mental health resources in [place] that might be helpful to you. Try to get in a little heart-pumping exercise most days of the week. Try to get quality and regular sleep. It's good to be up in time to experience the morning sun. Best wishes with your show this evening. sending in hydroxyzine for temporary relief of anxiety and zofran for nausea. Prescriptions: No Action No Known Home Medications Follow Up/Referrals: Provider,Not a Local [Primary Care Provider] - Stand Alone Forms: [facility] Info Instructions
--- OUTSIDE RECORDS SUMMARY | 2024-03-12 15:35 | XMS_ITS | Referral Summary ---
Author Name Unknown Organization [place] Address [id number] [place] [address] Care Team Providers Care Resource Development Manager Name Role Phone [facility] Primary Care Provider Allergies No known active allergies Medications Medication Sig Dispensed Refills Start Date End Date Status divalproex sodium delayed-release (DEPAKOTE) [address] tabletIndications:A lcohol use disorder, severe, dependence (H) 2 po bid x7d then 1 po bid 70 tablet 01/30/2021 Active cloNIDine (CATAPRES) 0.1 MG tabletIndications:A lcohol use disorder, severe, dependence (H) Take 1 tablet (0.1 mg) by mouth every 6 hours as needed (withdrawal symptoms) 60 tablet 01/30/2021 Active hydrOXYzine (VISTARIL) 25 MG capsuleIndications: Alcohol use disorder, severe, dependence (H) Take 1-2 capsules (25-50 mg) by mouth 3 times daily as needed for anxiety 90 capsule 01/30/2021 Active ondansetron (ZOFRAN) 8 MG tabletIndications:A lcohol use disorder, severe, dependence (H) Take 1 tablet (8 mg) by mouth every 8 hours as needed for nausea 30 tablet 01/30/2021 Active chlordiazePOXIDE (LIBRIUM) 25 MG capsule Take 1 capsule (25 mg) by mouth 3 times daily as needed for withdrawal 30 capsule 08/25/2021 Active Social History Tobacco Use Types Packs/Day Years Used Date Smoking Tobacco: Every Day Cigarettes Smokeless Tobacco: Never Alcohol Use Standard Drinks/Week Comments Not Currently 0 (1 standard drink = 0.6 oz pur e alcohol) Adolescent Education Answer Date Record ed Getting School Help Needed Not on file 08/16 Sex and Gender Information Value Date Recorded Sex Assigned at Not on file Gender Identity Not on file Sexual Orientation Not on file Last Filed Vital Signs Vital Sign Reading Time Taken Comments Blood Pressure 130/85 06/07/2022 6:10 PM CDT Pulse 65 06/07/2022 6:10 PM CDT Temperature 36.5 ??C (97.7 ??F) 06/07/2022 4:00 PM CD T Respiratory Rate 15 06/07/2022 6:10 PM CDT Oxygen Saturation 100% 06/07/2022 6:10 PM CDT Inhaled Oxygen Concentration - - Weight 79.4 kg (175 lb) 06/07/2022 4:00 PM CDT Height 180.3 cm (5' 11) 06/07/2022 4:00 PM CDT Body Mass Index 24.41 06/07/2022 4:00 PM CDT Plan of Treatment Not on file Procedures Procedure Name Priority Date/Time Associated Diagnosis Comments COMPREHENSIVE METABOLIC PANEL STAT 06/07/2022 4:39 PM CDT from Last 3 Months or Most Recently Relevant to Health Maintenance Results * (ABNORMAL) Comprehensive metabolic panel (06/07/2022 4:39 PM CDT) Sodium 141 136 - 145 mmol/L 06/07/2022 5:04 PM CDT LAB[facility]AT[facility] Potassium 4.2 3.4 - 5.3 mmol/L 06/07/2022 5:04 PM CDT LABORATORY Creatinine 0.91 0.67 - 1.17 mg/dL 06/07/2022 5:04 PM CDT [facility] Urea Nitrogen 7.8 6.0 - 20.0 mg/dL 06/07/2022 5:04 PM CDT LABORATORY Chloride 101 98 - 107 mmol/L 06/07/2022 5:04 PM CDT [facility] Carbon Dioxide (CO2) 25 22 - 29 mmol/L 06/07/2022 5:04 PM CDT LABORATORY Anion Gap 15 7 - 15 mmol/L 06/07/2022 5:04 PM CDT LABORATORY Glucose 99 70 - 99 mg/dL 06/07/2022 5:04 PM CDT [facility] Calcium 9.7 8.6 - 10.0 mg/dL 06/07/2022 5:04 PM CDT [facility] Protein Total 8.1 6.4 - 8.3 g/dL 06/07/2022 5:04 PM CDT [facility] Albumin 5.3(H) 3.5 - 5.2 g/dL 06/07/2022 5:04 PM CDT [facility] Bilirubin Total 0.6 <=1.2 mg/dL 06/07/2022 5:04 PM CDT [facility] Alkaline Phosphatase 90 40 - 129 U/L 06/07/2022 5:04 PM CDT [facility] AST 40 10 - 50 U/L 06/07/2022 5:04 PM CDT [facility] ALT 36 10 - 50 U/L 06/07/2022 5:04 PM CDT [facility] GFR Estimate >90 >60 mL/min/1.7 3m2 06/07/2022 5:04 PM CDT [facility] Comment:Effective October 102020 eGFRcr in adults is calculated using the 2020 CKD-EPI creatinine equation which includes age and gender (Zuleyma et al., NEJM, DOI: 10.1056/PUVBql4609149) Blood STRUCTURE OF RIGHT UPPER LIMB / Unknown Venipuncture / Unknown 06/07/2022 4:39 PM CDT 06/07/2022 4:43 PM CDT Brad Cummings MD LAB - BLOOD ORDER ANA [facility] [address] Lab (1st floor, no room number) [place] [address], [facility] [phone] from Last 3 Months or Most Recently Relevant to Health Maintenance Care Teams Resource Development Manager Relationship Specialty Start Date End Date Clinic - [address] [address] PCP - General Internal Medicine 12/18/19
--- OUTSIDE RECORDS SUMMARY | 2024-03-12 15:35 | XMS_ITS | Patient Health Record ---
Author Name Unknown Organization [facility] - Primary Address [address] [place] [address] Care Team Providers Care Box Inspector Name Role Phone Different, PCP Primary Care [...] chronic (F43.12) Active confirmed Posttraumatic stress disorder ([id number]) PLAN OF TREATMENT No Information Insurance Providers Payer Name Payer Address Payer Phone Subscriber Number Group Number Insured Name Patient Relationship to Insured Coverage Start Date Coverage End Date [facility] [address] [place] [address] [id number] Ag Dykes Self - patient is the insured [facility] [address] [place] [address] [id number] Ag Dykes Self - patient is the insured MEDICAL (GENERAL) HISTORY Medical History History ICD Code PTSD Surgical History Surgery Date(Month/Year) collar bone Rt Hospitalization History Reason Date(Month/Year) ER with chest pain [place] 03/2020
--- OUTSIDE RECORDS SUMMARY | 2024-03-12 15:35 | XMS_ITS | Clinical Summary ---
Author Name Unknown Organization [facility] Address [address] [place] [address] Care Team Providers Care Slot Operations Manager Name Role Phone [facility] Primary Care Provider Allergies No [...] needed for withdrawal 30 capsule 08/25/2021 Active Family History Medical History Relation Comments Alcoholism Father Relation Status Comments Father Social History Tobacco Use Types Packs/Day Years [...] 06/07/2022 4:00 PM CDT Plan of Treatment Health Maintenance Due Date Last Done Comments ADVANCE CARE PLANNING 1988 ANNUAL REVIEW OF HM ORDERS 1988 YEARLY PREVENTIVE VISIT 1988 Pneumococcal Vaccine: Pediatrics (0 to 5 Years) and At-Risk Patients (6 to 64 Years) (1 of 2 - PCV) 01/17/1994 HIV SCREENING 01/17/2003 HEPATITIS C SCREENING 01/17/2006 HEPATITIS B IMMUNIZATION (1 of 3 - 19+ 3-dose series) 01/17/2007 DTAP/TDAP/TD IMMUNIZATION (2 - Td or Tdap) 01/06/2021 01/06/2011 COVID-19 Vaccine (1 - 2022-24 season) 2023 INFLUENZA VACCINE (#1) 2023 PHQ-2 (once per calendar year) 2023 GLUCOSE 06/07/2025 06/07/2022, 08/09, 06/18/2021, Additional history exists HPV IMMUNIZATION Aged Out No longer e ligible based on patient's age to complete this topic IPV IMMUNIZATION Aged Out No longer e ligible based on patient's age to complete this topic MENINGITIS IMMUNIZATION Aged Out No l onger eligible based on patient's age to complete this topic RSV MONOCLONAL ANTIBODY Aged Out No l onger eligible based on patient's age to complete this topic Procedures Procedure Name Priority Date/Time Associated Diagnosis Comments COMPREHENSIVE METABOLIC PANEL STAT 06/07/2022 4:39 PM CDT from Last 3 Months or Most Recently Relevant to Health Maintenance Results * (ABNORMAL) Comprehensive metabolic panel (06/07/2022 4:39 PM CDT) Sodium 141 136 - 145 mmol/L 06/07/2022 5:04 PM CDT [facility] Potassium 4.2 3.4 - 5.3 mmol/L 06/07/2022 5:04 PM CDT [facility] Creatinine 0.91 0.67 - 1.17 mg/dL 06/07/2022 5:04 PM CDT [facility] Urea Nitrogen 7.8 6.0 - 20.0 mg/dL 06/07/2022 5:04 PM CDT [facility] Chloride 101 98 - 107 mmol/L 06/07/2022 5:04 PM CDT [facility] Carbon Dioxide (CO2) 25 22 - 29 mmol/L 06/07/2022 5:04 PM CDT [facility] Anion Gap 15 7 - 15 mmol/L 06/07/2022 5:04 PM CDT [facility] Glucose 99 70 - 99 mg/dL [...] >60 mL/min/1.7 3m2 06/07/2022 5:04 PM [facility] LAB[facility] Comment:Effective October 102020 eGFRcr in adults is calculated using the 2020 CKD-EPI creatinine equation which includes age and gender (Technical Support Engineer et al., NEJ, DOI: 10.1056/BKZCmo0839773) Blood STRUCTURE OF RIGHT UPPER LIMB / Unknown Venipuncture / Unknown 06/07/2022 4:39 PM CDT 06/07/2022 4:43 PM CDT Brad Cummings MD LAB - BLOOD ORDER ANA LABORATORY [facility] [address] [facility] (1st floor, no room number) [place] [address], [facility] [phone] from Last 3 Months or Most Recently Relevant to Health Maintenance Care Teams Slot Operations Manager Relationship Specialty Start Date End Date Clinic - [facility] [address] [place] [address] PCP - General Internal Medicine 12/18/19
--- OUTSIDE RECORDS SUMMARY | 2024-03-12 15:35 | XMS_ITS | Encounter Summary ---
Author Name Unknown Organization [place] Address [facility] [place] [address] Care Team Providers Care Board Layer Name Role Phone [facility] Primary Care Provider Encounter Details Date Type Department Care Team (Late st Contact Info) Description 08/25/2021 Documentation Only INTERFACED REPORT Unknown, Provider Social History Tobacco Use Types Packs/Day Years Used Date Smoking Tobacco: Every Day Cigarettes Smokeless Tobacco: Never Alcohol Use Standard Drinks/Week Comments Not Currently 0 (1 standard drink = 0.6 oz pur e alcohol) Sex and Gender Information Value Date Recorded Sex Assigned at Not on file Gender Identity Not on file Sexual Orientation Not on file COVID-19 Exposure Response Date Recorded In the last month, have you been in contact with someone who was confirmed or suspected to have Coronavirus / COVID-19? No / Unsure 08/25/2021 4:45 PM CDT documented as of this encounter Plan of Treatment Not on file documented as of this encounter Visit Diagnoses Not on filedocumented in this encounter Care Teams Board Layer Relationship Specialty Start Date End Date [facility] [address] [place], [place] [address] PCP - General Internal Medicine 12/18/19 documented as of this encounter
--- OUTSIDE RECORDS SUMMARY | 2024-03-12 15:35 | XMS_ITS | Clinical Summary ---
Author Name Unknown Organization [facility] Address [place], [place] [address] Care Team Providers Care Aircraft Skin Burnisher Name Role Phone Katerina Jules Primary Care Provider Allergies No known active allergies Medications No known medications Active Problems Problem Noted Date Diagnosed Date Alcohol use disorder 01/12/2024 Resolved Problems Problem Noted Date Diagnosed Date Resolved Date Unspecified part of closed f racture of clavicle 01/05/2011 01/12/2024 Encounters Date Type Department Care Team Description 01/14/2024 Telephone [facility] [address] [place] [address] Katerina Jules PA Results 01/12/2024 11:30 AM QUARTZ ORIENTATOR Office Visit [facility] [address] [place] [address] Katerina Jules PA Concerns (wants to have liver work up- alcoholism and concerns with bloating and inability to eat much. ); STD (no symptoms or exposure that he is aware of) 01/12/2024 Travel 01/08/2024 Nurse Triage [facility] [address] [place] [address] Pcp, No Error-please disregard from Last 3 Months Immunizations Name Administration Dates Next Due Tdap 01/06/2011 Social History Tobacco Use Types Packs/Day Years Used Date Smoking Tobacco: Every Day Cigarettes 0.5 11.3 Started: 2012 Smokeless Tobacco: Never Tobacco Cessation:Ready to Q uit: Not Asked; Counseling Given: Not Answered Alcohol Use Standard Drinks/Week Comments Yes 0 (1 standard drink = 0.6 oz pure alcohol) shots of vodka- drinks daily- 3-5 shots a day PHQ-2 Answer Date Recorded PHQ-2 TOTAL SCORE 0 01/12/2024 Social Connections Answer Date Recorded Frequency of Communication with Friends and Fami ly 0 01/12/2024 Financial Resource Strain Answer Date R ecorded Difficulty of Paying Living Expenses 3 01/12/2024 Difficulty of Paying Living Expenses Not on file 01/12/2024 Food Insecurity Answer Date Recorded Worried About Running Out of Food in the Last Ye ar 1 01/12/2024 Transportation Needs Answer Date Record ed Lack of Transportation (Medical) 1 01/12/2024 Housing Stability Answer Date Recorded Unable to Pay for Housing in the Last Year 1 01/12/2024 Sex and Gender Information Value Date Recorded Sex Assigned at Not on file Gender Identity Not on file Sexual Orientation Not on file Obstetrics History Last Filed Vital Signs Vital Sign Reading Time Taken Comments Blood Pressure 130/86 01/12/2024 11:34 AM QUARTZ ORIENTATOR Pulse 82 01/12/2024 11:34 AM QUARTZ ORIENTATOR Temperature 36.4 ??C (97.6 ??F) 12/03/2023 10:[address] Respiratory Rate 31 12/03/2023 11:30 PM QUARTZ ORIENTATOR Oxygen Saturation 100% 01/12/2024 11:34 AM QUARTZ ORIENTATOR Inhaled Oxygen Concentration - - Weight 87.1 kg (192 lb) 01/12/2024 11:34 AM QUARTZ ORIENTATOR Height 180.3 cm (5' 11) 01/12/2024 11:34 AM QUARTZ ORIENTATOR Body Mass Index 26.78 01/12/2024 11:34 AM QUARTZ ORIENTATOR Plan of Treatment Health Maintenance Due Date Last Done Comments Pneumococcal series for age 6-64 (1 of 2 - PCV) 01/17/1994 Tetanus booster 01/06/2021 01/06/2011 Lipids for age 35-44 01/17/2023 COVID-19 vaccine series (2022- season) 2023 Influenza for age 9-49 07/10/2024 BMI (ht and wt on same day) for age 18+ 01/11/2025 0 01/12/2024 Depression screening for age 12+ 01/13/2025 01/14/20 24, 01/12/2024 Tdap Completed 01/06/2011 HIV for age 15-65 Completed 01/12/2024 Hepatitis C screening for age 18-79 Completed 01/11 Procedures Procedure Name Priority Date/Time Associated Diagnosis Comments TRICHOMONAS AMPLIFIED PROBE Routine 01/12/2024 12:19 PM QUARTZ ORIENTATOR Screen for STD (sexually transmitted disease) GC CHLAMYDIA TRACH PROBE Routine 01/12/2024 12:19 PM QUARTZ ORIENTATOR Screen for STD (sexually transmitted disease) LC HCV QN INTERP [id number] Routine 01/12/2024 12:06 PM QUARTZ ORIENTATOR Screen for STD (sexually transmitted disease) ANTI HCV Routine 01/12/2024 12:06 PM QUARTZ ORIENTATOR Need for hepatitis C screening test GAMMA GT Routine 01/12/2024 12:06 PM QUARTZ ORIENTATOR Alcohol use disorder COMP METABOLIC PANEL Routine 01/12/2024 12:06 PM QUARTZ ORIENTATOR Alcohol use disorder LC ACUTE HEPATITIS Routine 01/12/2024 12 :06 PM QUARTZ ORIENTATOR Screen for STD (sexually transmitted disease) ANTI HBC Routine 01/12/2024 12:06 PM QUARTZ ORIENTATOR Screen for STD (sexually transmitted disease) HSV TYPE SPEC IGG SIMONE Routine 01/12/2024 12:06 PM QUARTZ ORIENTATOR Screen for STD (sexually transmitted disease) TREPONEMA PALLIDUM Routine 01/12/2024 12 :06 PM QUARTZ ORIENTATOR Screen for STD (sexually transmitted disease) ANTI HIV 1/2 Routine 01/12/2024 12:06 PM QUARTZ ORIENTATOR Screen for STD (sexually transmitted disease) from Last 3 Months Results * TRICHOMONAS AMPLIFIED PROBE (01/12/2024 12:19 PM QUARTZ ORIENTATOR) TRICHOMONAS AMPLIFIED PROBE Negative 01/15/2024 12:20 PM QUARTZ ORIENTATOR [facility] TRA LAB[facility] Other URINE SPECIMEN / Unknown Non-Blood / Unknown 01/12/2024 12:19 PM QUARTZ ORIENTATOR 01/12/2024 12:19 PM QUARTZ ORIENTATOR Katerina PINA MICROBIOLOGY [facility] [address] [place] [address], * GC CHLAMYDIA TRACH PROBE (01/12/2024 12:19 PM QUARTZ ORIENTATOR) CHLAMYDIA PROBE Negative 1:27 AM QUARTZ ORIENTATOR [facility] TRAL LABORATORY N GONORRHOEAE PROBE Negative 01/13/2024 1:27 AM QUARTZ ORIENTATOR [facility] TRAL LABORATORY Other URINE SPECIMEN / Unknown Non-Blood / Unknown 01/12/2024 12:19 PM QUARTZ ORIENTATOR 01/12/2024 12:19 PM QUARTZ ORIENTATOR Katerina PINA MICROBIOLOGY Performing Organization Address City/[facility] Co de Phone Number [facility] [address] [place] [address], * LC ACUTE HEPATITIS (01/12/2024 12:06 PM QUARTZ ORIENTATOR) Hep A IgM Ab Negative Negative 01/15/2024 11:10 AM QUARTZ ORIENTATOR [facility] Hep B Surf Ag Scr Negative Negative 01/15/2024 11:10 AM QUARTZ ORIENTATOR [facility] Hep B Core IgM Ab Negative Negative 01/15/2024 11:10 AM QUARTZ ORIENTATOR [facility] HCV Ab Non Reactive Non Reactive 01/15/2024 11:10 AM [facility] Blood BLOOD SPECIMEN / Unknown Venipuncture / Unknown 01/12/2024 12:06 PM QUARTZ ORIENTATOR 01/12/2024 12:06 PM QUARTZ ORIENTATOR Narrative [facility] - 01/15/2024 11:10 AM QUARTZ ORIENTATOR Performed at: ??[address] ??[id number] Head Of Cytogenetics: Ayden Garcia MD, Phone: ??[phone] Katerina IPNA LABORAT[facility] Performing Organization Address [facility]/ZIP Co de Phone Number [facility]) [address] [place] [address], * LC HCV QN INTERP [id number] (01/12/2024 12:06 PM QUARTZ ORIENTATOR) HCV Neg Interp Comment 01/15/2024 11:10 AM QUARTZ ORIENTATOR [facility] Comment: Not infected with HCV unless early or acute infection is suspected (which may be delayed in an immunocompromised individual), or other evidence exists to indicate HCV infection. Blood BLOOD SPECIMEN / Unknown Venipuncture / Unknown 01/12/2024 12:06 PM QUARTZ ORIENTATOR 01/12/2024 12:06 PM QUARTZ ORIENTATOR Narrative [facility] - 01/15/2024 11:10 AM QUARTZ ORIENTATOR Performed at: ??01 - [facility] [address], [place] ??[id number] Head Of Cytogenetics: Ayden Garcia MD, Phone: ??[phone] Katerina PINA LABORATORY Performing Organization Address [facility] Co de Phone Number [facility] [address] [place] [address], * TREPONEMA PALLIDUM (01/12/2024 12:06 PM QUARTZ ORIENTATOR) TREPONEMA PALLIDUM Non-Reacti ve Non-Reacti ve 01/12/2024 10:34 PM QUARTZ ORIENTATOR [facility] TRAL [facility] Blood BLOOD SPECIMEN / Unknown Venipuncture / Unknown 01/12/2024 12:06 PM QUARTZ ORIENTATOR 01/12/2024 12:06 PM QUARTZ ORIENTATOR Katerina PINA SEND OUTS Performing Organization Address City/[facility]/ZIP Co de Phone Number [facility] [address] [place] [address], [place] * (ABNORMAL) HSV TYPE SPEC IGG SIMONE (01/12/2024 12:06 PM QUARTZ ORIENTATOR) [facility] HSV-1 IGG ANTIBODY 35.80(H) <=0.89 INDEX 01/13/2024 9:34 AM QUARTZ ORIENTATOR [facility] HSV-2 IGG ANTIBODY 0.08 <=0.89 INDEX 01/13/2024 9:34 AM QUARTZ ORIENTATOR [facility] Blood BLOOD SPECIMEN / Unknown Venipuncture / Unknown 01/12/2024 12:06 PM QUARTZ ORIENTATOR 01/12/2024 12:06 PM QUARTZ ORIENTATOR Narrative [facility] - 01/13/2024 9:34 AM QUARTZ ORIENTATOR Interpretation: Negative <0.90 Equivocal 0.90-1.10 Positive ??>1.10 Negative indicates no antibodies detected to HSV-1 and/or HSV-2. Equivocal may indicate early infection, if appropriate, retest in 4 to 12 weeks. A Positive result indicates the presence of IgG antibodies to HSV-1 and/or HSV-2. ? Katerina PINA SEND OUTS [facility] [address] [place] [address], [place] * ANTI HCV (01/12/2024 12:06 PM QUARTZ ORIENTATOR) [facility] HEPATITIS C ANTIBODY Non-Reacti ve Non-React jared 01/12/2024 10:25 PM QUARTZ ORIENTATOR [facility] Comment:Please note, per www .CDC.gov: If a patient is known to be at high risk of HCV infection, or is symptomatic, and the physician's suspicion of HCV infection is high, HCV RNA testing is often employed and is of diagnostic value, even after an initial negative anti-HCV test result. Blood BLOOD SPECIMEN / Unknown Venipuncture / Unknown 01/12/2024 12:06 PM QUARTZ ORIENTATOR 01/12/2024 12:06 PM QUARTZ ORIENTATOR Katerina PINA SEND OUTS Performing Organization Address [facility]/ZIP Co de Phone Number [facility] [address] [place] [address], * ANTI HBC (01/12/2024 12:06 PM QUARTZ ORIENTATOR) ANTI HBC Non-React jared Non-React jared 01/12/2024 10:26 PM QUARTZ ORIENTATOR [facility] Comment:Anti-HBc Antibodies not detected. Does not exclude the possibility of exposure to or infection with HBV. Levels of Anti-HBc may be below the cut-off in early infection. Blood BLOOD SPECIMEN / Unknown Venipuncture / Unknown 01/12/2024 12:06 PM QUARTZ ORIENTATOR 01/12/2024 12:06 PM QUARTZ ORIENTATOR Katerina PINA SEND OUTS Performing Organization Address [facility] Co de Phone Number [facility] [address] [place] [address], * ANTI HIV 1/2 (01/12/2024 12:06 PM QUARTZ ORIENTATOR) Pathologist [facility] HIV-1/HIV-2 SCREEN Non-Reacti ve Non-Reacti ve 01/12/2024 10:26 PM QUARTZ ORIENTATOR [facility] Comment:HIV-1 p24 and HIV-1/ HIV-2 Ab Not Detected. Blood BLOOD SPECIMEN / Unknown Venipuncture / Unknown 01/12/2024 12:06 PM QUARTZ ORIENTATOR 01/12/2024 12:06 PM QUARTZ ORIENTATOR Katerina PINA SEND OUTS Performing Organization Address City/[facility]/ZIP Co de Phone Number [facility] [address] [place] [address], * (ABNORMAL) GAMMA GT (01/12/2024 12:06 PM QUARTZ ORIENTATOR) Pathologist [facility] GAMMA GT 81(H) 8 - 61 IU/L 01/12/2024 10:05 PM QUARTZ ORIENTATOR [facility] Blood BLOOD SPECIMEN / Unknown Venipuncture / Unknown 01/12/2024 12:06 PM QUARTZ ORIENTATOR 01/12/2024 12:06 PM [facility] Katerina PINA [facility]MISTRY [facility] [address] [place] [address], * (ABNORMAL) COMP METABOLIC PANEL (01/12/2024 12:06 PM [facility]) SODIUM 141 136 - 145 mmol/L 01/12/2024 10:05 PM [facility] TRAL LABORATORY POTASSIUM 4.1 3.5 - 5.1 mmol/L 01/12/2024 10:05 PM [facility] CHLORIDE 102 98 - 107 mmol/L 01/12/2024 10:05 PM [facility] CO2,TOTAL 25 22 - 29 mmol/L 01/12/2024 10:05 PM [facility] TRAL LABORATORY ANION GAP 14 5 - 18 01/12/2024 10:05 PM [facility] GLUCOSE 126(H) 70 - 99 mg/dL 01/12/2024 10:05 PM [facility] CALCIUM 9.9 8.6 - 10.0 mg/dL 01/12/2024 10:05 PM [facility] BUN 12 6 - 20 mg/dL 01/12/2024 10:05 PM [facility] CREATININE 1.00 0.70 - 1.20 mg/dL 01/12/2024 10:05 PM [facility] BUN/CREAT RATIO 12 10 - 20 10:05 PM [facility] eGFR >90 >90 mL/min/1.7 3m2 01/12/2024 10:05 PM [facility] TRAL LABORATORY Comment:As of 2022, eG FR is calculated by the CKD-EPI creatinine equation without race adjustment. ??eGFR can be influenced by muscle mass, exercise, and diet. ??The reported eGFR is an estimation only and is only applicable if the renal function is stable. ALBUMIN 5.0(H) 4.0 - 4.9 g/dL 01/12/2024 10:05 PM [facility] TRAL LABORATORY PROTEIN,TOTAL 7.7 6.0 - 8.0 g/dL 01/12/2024 10:05 PM [facility] TRA LABORATORY BILIRUBIN,TOTAL 0.3 0.0 - 1.2 mg/dL 01/12/2024 10:05 PM QUARTZ ORIENTATOR [facility] TRAL LABORATORY ALK PHOSPHATASE 79 40 - 129 IU/L 01/12/2024 10:05 PM [facility] TRAL LAB[facility] ALT (SGPT) 41 10 - 50 IU/L 01/12/2024 10:05 PM [facility] TRAL LAB[facility] AST (SGOT) 29 10 - 50 IU/L 01/12/2024 10:05 PM [facility] Blood BLOOD SPECIMEN / Unknown Venipuncture / Unknown 01/12/2024 12:06 PM QUARTZ ORIENTATOR 01/12/2024 12:06 PM QUARTZ ORIENTATOR Katerina PINA CHEMISTRY [facility] [address] [place] [address], from Last 3 Months Advance Directives * Full Code (Latest Code Status on File) Date Activated Date Inactivated Comments 01/04/2011 9:55 PM 01/05/2011 5:34 PM Care Teams Aircraft Skin Burnisher Relationship Specialty Start Date End Date Katerina Jules [place] [id number] [place] [id number] PCP - General Physician Medical Billing And Coding Specialist 01/12/24
[2024-03-12] MEDS: ONDANSETRON 2 MG/ML inj 4 MG IVP (16:04)
[2024-03-12] MEDS: LORazepam 2 MG/ML inj 1 MG IVP (16:04)
== END 2024-03-12 18:34 | disposition home or self-care (01) ==
PROVIDERS: Emergency Provider Family Medicine
DX: R68.84 Jaw pain (principal)
CPT/HCPCS: 96374; 96375; 99283; 99284; J2060; J2405; J3411; J7030

== ENCOUNTER 2024-03-13 21:10 | Emergency (ER) | payer MEDICARE, SELFPAY ==
[2024-03-13 21:16] VITALS: BP 125/78; PULSE 90; RESP 20; TEMP 36.7; O2SAT 99; BMI 25.1
--- NOTE | 2024-03-13 21:45 | ED.GENADULT ---
HPI - General Adult General Chief complaint: Unspecified Complaint, Adult Stated complaint: alcohol intoxication Time Seen by Provider: 03/13/24 21:15 History of Present Illness HPI narrative: 34-year-old man returning to the emergency department after I had seen him approximately 30 hours ago with suspected temporomandibular joint pain and alcohol intoxication. He admits to having been on a ?callahan? over the last now 7 days. He begins to cry as we were talking initially. He wants to feel better with relief from anxiety. Feels like his heart is just pounding and his chest is tight and he needs something ?MAZIN. At this point also I am discussing with him potential detox. He says that [facility] That also been trying to find him a bed which I understand mean detox but could not. Offered to try to do that; this is the point also at which he begins to cry. He does offer also that had been in a detox/treatment facility 30 days ago. Checking on detox beds were able to locate 1 in [place]. Ag has not picked up yet the medications prescribed yesterday. Girlfriend Tatyana with whom apparently has just experienced a break-up a calls looking for information. She offers that today Ag had tried to kill himself. 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 She reports that he drinks a bottle of vodka a day. Then some time later afternoon then must have taken 15 melatonin at least a number that he notes here. Tatyana noted these to be 5 mg gummies. She says that Ag had been threatening to kill himself slitting his wrist or stabbing his chest with a knife he generally keeps on his hip. She says that threats of self-harm are not new. It does not appear that he has attempted before though. Apparently Ag had agreed to go to detox today. Tends to be sober for about 30 days at a time. Ag does not have this knife with him now as we inquire of him; he removed this prior to coming here today. Friend dropped him off at the ER to try to find detox. I speak further with Ag. He denies interest in self-harm other than having these thoughts which are not new he admits. His chest was just so tight with anxiety he says he was talking about stabbing it. He recognizes the need to stop drinking. He endorses 4 - 5 shots today but not a whole bottle. He just wanted to be able to sleep, just to get at least an hour of sleep he says, so he took the melatonin. This ingestion of melatonin out at least 5 hours post ingestion and is no longer an issue per our conversation with poison Control. Related Data Home Medications ?Medication ?Instructions ?Recorded ?Confirmed No Known Home Medications 03/13/24 03/13/24 Allergies Allergy/AdvReac Type Severity Reaction Status Date / Time No Known Drug Allergies Allergy Verified 03/05/23 13:13 Review of Systems Status of ROS: Reports: 6 or more systems reviewed and unremarkable except as noted in History and below PFSH [facility] Social History Smoking Status: Current every day smoker What tobacco products do you use: cigarettes Smoking packs per day: 1 Smoking cigarettes per day: 20.0 Years smoked: 6 Smoking pack-years: 6.00 Do you use any of these nicotine containing products: None Second hand tobacco smoke exposure: Yes How often do you have a drink containing alcohol: never How many standard drinks containing alcohol do you have on a typical day: 10 or more How often do you have six or more drinks on one occasion: Never AUDIT-C Alcohol total score: 4 Non-prescribed substance use: denies use service: No Exam Narrative: Exam Narrative: Initially notably anxious. A little agitated. Skin is warm and dry without evidence of self-harm. Nerves 2 through 12 intact. He is breathing easily. Heart is in an elevated rate but not tachycardic. Regular rhythm. Is speaking fluidly. Is not slurring his words at this time. With further conversation is increasingly thoughtful, introspective. Denies suicidal or homicidal intent. Intermittently tearful during this interview. Const: Vital Signs, click to edit/add: Vital Signs - 24 hr 03/13/24 21:16 03/13/24 21:48 03/13/24 23:00 Temperature 98.0 F Pulse Rate 74 Pulse Rate [Right Pulse Oximeter] 90 Respiratory Rate 20 14 Blood Pressure [Ri ght Upper Arm] 125/78 Pulse Oximetry 99 99 100 Oxygen Delivery Me thod Room Air 03/13/24 23:24 Temperature 98.6 F Pulse Rate Pulse Rate [Right Pulse Oximeter] 84 Respiratory Rate 16 Blood Pressure [Ri ght Upper Arm] 118/93 H Pulse Oximetry 99 Oxygen Delivery Me thod Room Air Documenting provider has reviewed patient's vital signs: yes Course Vital Signs Vital signs: Initial Vital Signs Temperature 98.0 F 03/13/24 21:16 Temperature Source Temporal Artery Scan 03/13/24 21:16 Pulse Rate 90 03/13/24 21:16 Respiratory Rate 20 03/13/24 21:16 Blood Pressure 125/78 03/13/24 21:16 Blood Pressure Mean 93 03/13/24 21:16 Blood Pressure Position Sitting 03/13/24 21:16 Pulse Oximetry 99 03/13/24 21:16 Oxygen Delivery Method Room Air 03/13/24 21:16 Vital Signs Temperature 98.0 F 03/13/24 21:16 Pulse Rate 90 03/13/24 21:16 Respiratory Rate 20 03/13/24 21:16 Blood Pressure 125/78 03/13/24 21:16 Pulse Oximetry 99 03/13/24 21:16 Oxygen Delivery Method Room Air 03/13/24 21:16 Temperature 98.6 F 03/13/24 23:24 Pulse Rate 74 03/14/24 01:51 Respiratory Rate 16 03/14/24 01:51 Blood Pressure 112/76 03/14/24 01:51 Pulse Oximetry 98 03/14/24 01:51 Oxygen Delivery Method Room Air 03/14/24 01:51 Medications Administered Medications: Discontinued Medications Generic Name Dose Route Start Last Admin Trade Name Elliotq PRN Reason Stop Dose Admin Diazepam 5 mg 03/14/24 02:30 03/14/24 02:37 Diazepam 5 Mg Tablet PO 03/14/24 02:31 5 mg ONCE ONE Administration Sodium Chloride 1,000 mls @ 1,000 mls/hr 03/13/24 21:54 03/13/24 23:09 0.9 % Sodium Chloride 1000 Ml IV 03/13/24 22:53 Not Given .Q1H ONE Lorazepam 2 mg 03/13/24 21:41 03/13/24 21:58 Lorazepam 1 Mg Tablet PO 03/13/24 21:42 2 mg ONCE ONE Administration Ondansetron HCl 4 mg 03/13/24 22:46 03/13/24 23:19 Ondansetron Odt 4 Mg Tab PO 03/13/24 22:47 4 mg ONCE ONE Administration Ondansetron HCl 4 mg 03/14/24 02:30 03/14/24 02:38 Ondansetron Odt 4 Mg Tab PO 03/14/24 02:31 4 mg ONCE ONE Administration Oral Electrolytes 1,014 ml 03/13/24 22:46 03/13/24 23:19 Electrolytes/Dextrose Oral Megan 1,000 Ml PO 1,014 ml ONCE PRN Administration Alcohol Withdrawal Propranolol HCl 20 mg 03/13/24 21:41 03/13/24 22:05 Propranolol 20 Mg Tablet PO 03/13/24 21:42 20 mg ONCE ONE Administration Medical Decision Making MDM Narrative Medical decision making narrative: Friends have brought Ag here for attempted detox. I do find Ag to be intoxicated. He does admit to making threats and having passive thoughts of suicide. I do not believe that he is actively suicidal. He is voluntary at this time. He is willing to consider detox. Will continue to pursue that. Pending laboratory evaluations. Have ordered propranolol and lorazepam and he feels he might be dehydrated still and will be giving him some Pedialyte. Zofran. On reassessment already is more relaxed. We are providing him with a sandwich. Labs returned with an alcohol level of 0.29. U tox is clear. [facility] has detox beds. I will try to encourage him to go there. I would consider Mr. Bentley medically stable for detox Medical Records Medical records reviewed: Yes I reviewed the patient's medical records Lab Data Lab results reviewed: Yes I reviewed the patient's lab results Labs: Lab Results 03/13/24 03/13/24 Range/Units 22:05 22:50 WBC 6.44 (4.50-11.00) K/uL RBC 4.87 (4.30-5.90) m/uL Hgb 15.0 (13.5-17.5) gm/dL Hct 43.2 (37.0-53.0) % MCV 89 (80-100) fL MCH 31 (26-34) pg MCHC 35 (32-36) gm/dL RDW Coeff of Magdalena 11.4 L (11.5-15.5) % Plt Count 313 (140-440) K/uL Neut % (Auto) 64.0 (42.0-72.0) % Lymph % (Auto) 27.3 (20-44) % Payette % (Auto) 6.8 (0.0-11.0) % Eos % (Auto) 0.6 (0.0-7.0) % Baso % (Auto) 0.5 (0.0-3.0) % Neut # (Auto) 4.12 (1.7-7.0) K/uL Lymph # (Auto) 1.76 (0.90-2.90) K/uL Payette # (Auto) 0.40 (0.00-0.90) K/UL Eos # (Auto) 0.04 (0.00-0.50) K/uL Baso # (Auto) 0.03 (0.00-0.30) K/uL Abs Immat Gran (auto) 0.05 (0.00-0.30) K/uL Imm/Tot Granulo (auto) 0.8 % Sodium 144 (135-149) mmol/L Potassium 3.7 (3.6-5.1) mmol/L Chloride 106 (96-114) mmol/L Carbon Dioxide 25 (20-32) mmol/L Anion Gap 13 (7-15) mEq/L BUN 11 (5-24) mg/dL Creatinine 0.9 (0.5-1.5) mg/dL Estimated Creat Clear 124.54 Estimated GFR 114 ml/min Glucose 99 (60-115) mg/dL Calcium 9.0 (8.4-10.6) mg/dL C-Reactive Protein < 0.5 L (0.5-1.0) mg/dL Salicylates < 1.0 L (1.0-10) mg/dL Urine Opiates Screen Negative (Negative) Ur Oxycodone Screen Negative (Negative) Urine Methadone Screen Negative (Negative) Acetaminophen < 10.0 L (10.0-30.0) ug/mL Ur Barbiturates Screen Negative (Negative) U Tricyclic Antidepress Negative (Negative) Ur Phencyclidine Scrn Negative (Negative) Ur Amphetamines Screen Negative (Negative) U Methamphetamines Scrn Negative (Negative) U Benzodiazepines Scrn Negative (Negative) Urine Cocaine Screen Negative (Negative) U Marijuana (THC) Screen Negative (Negative) Ur Drug Screen Comment See Note Ethyl Alcohol 0.29 H (0.01-0.03) % ECG Data Attestation: I personally reviewed and interpreted this ECG as follows: (Normal sinus rhythm rate is 67.) Discharge Plan Discharge Clinical Impression: Suicidal ideation, Alcohol intoxication Patient Disposition: Xfer Other Condition: Improved Additional Instructions: Please see instructions from last discharge. I would anticipate [facility] Detox helping you through the worst of it. Then you would be ready to attend treatment at [place] as soon as that can be arranged. I do hope this works out well for you. Prescriptions: No Action No Known Home Medications Stand Alone Forms: MyHealth Info Instructions
[2024-03-13 21:48] VITALS: O2SAT 99
[2024-03-13] MEDS: LORazepam 1 MG TABLET 2 MG PO (21:58)
[2024-03-13] MEDS: PROPRANOLOL 20 MG TABLET PO (22:05)
--- OUTSIDE RECORDS SUMMARY | 2024-03-13 22:16 | XMS_ITS | Clinical Summary ---
Author Name Unknown Organization [place] Address [address] [place] [id number] Care Team Providers Care Collection Technician Name Role Phone [facility] Primary Care Provider Allergies No known active [...] Td or Tdap) 01/06/2021 01/06/2011 COVID-19 Vaccine ( - season) 2023 PHQ-2 (once per calendar year) 2023 INFLUENZA VACCINE (Season Ended) 2024 GLUCOSE 06/07/2025 06/07/2022, 08/09, 06/18/2021, Additional history [...] creatinine equation which includes age and gender ([employer] et al., NEJ, DOI: 10.1056/XWUJpu8130268) Blood STRUCTURE OF RIGHT UPPER LIMB / Unknown Venipuncture / Unknown 06/07/2022 4:39 PM CDT 06/07/2022 4:43 PM CDT Brad Cummings MD LAB - BLOOD ORDER ANA LABORATORY [facility] [address] [facility] Lab (1st floor, no room number) [place] [address], [facility] [phone] from Last 3 Months or Most Recently Relevant to Health Maintenance Care Teams Collection Technician Relationship Specialty Start Date End Date Clinic - [facility] [address] [place] [address] PCP - General Internal Medicine 12/18/19
--- OUTSIDE RECORDS SUMMARY | 2024-03-13 22:17 | XMS_ITS | Patient Health Record ---
Author Name Unknown Organization [facility] - Primary Address [address] [place] [address] Care Team Providers Care Clinical Nurse Reviewer Name Role Phone Different, PCP Primary Care [...] chronic (F43.12) Active confirmed Posttraumatic stress disorder ([id number]) PLAN OF TREATMENT No Information Insurance Providers Payer Name Payer Address Payer Phone Subscriber Number Group Number Insured Name Patient Relationship to Insured Coverage Start Date Coverage End Date [facility] [address] [place] [address] [id number] Ag Dykes Self - patient is the insured [employer] [facility] [address] [place] [address] [id number] Ag Dykes Self - patient is the insured MEDICAL (GENERAL) HISTORY Medical History History ICD Code PTSD Surgical History Surgery Date(Month/Year) collar bone Rt Hospitalization History Reason Date(Month/Year) ER with chest pain [place] 03/2020
--- OUTSIDE RECORDS SUMMARY | 2024-03-13 22:17 | XMS_ITS | Encounter Summary ---
Author Name Unknown Organization [place] Address [facility] [place] [address] Care Team Providers Care Nurse Supervisor Name Role Phone [facility] Primary Care Provider Encounter Details Date Type [...] on filedocumented in this encounter Care Teams Nurse Supervisor Relationship Specialty Start Date End Date [facility] [address] [place], [place] [id number] PCP - General Internal Medicine 12/18/19 documented as of this encounter
--- OUTSIDE RECORDS SUMMARY | 2024-03-13 22:17 | XMS_ITS | Referral Summary ---
Author Name Unknown Organization [place] Address [facility] [place] [address] Care Team Providers Care Company Doctor Name Role Phone [facility] Primary [...] and gender (Zuleyma et al., NEJM, DOI: 10.1056/[id number]) Blood STRUCTURE OF RIGHT UPPER LIMB / Unknown Venipuncture / Unknown 06/07/2022 4:39 PM CDT 06/07/2022 4:43 PM CDT Brad Cummings MD LAB - BLOOD ORDER ANA RH LABORATORY [facility] Acute Care Lab [address] Lab (1st floor, no room number) [place] [address], [facility] [phone] from Last 3 Months or Most Recently Relevant to Health Maintenance Care Teams Company Doctor Relationship Specialty Start Date End Date Clinic - [address] [address] PCP - General Internal Medicine 12/18/19
--- OUTSIDE RECORDS SUMMARY | 2024-03-13 22:17 | XMS_ITS | Clinical Summary ---
Author Name Unknown Organization [facility] Address [place], [place] [address] Care Team Providers Care Channel Cementer Insole Machine Name Role Phone Katerina Jules Primary Care Provider Allergies No known active allergies Medications No known medications Active Problems Problem Noted Date Diagnosed Date Alcohol use disorder 01/12/2024 Resolved Problems Problem Noted Date Diagnosed Date Resolved Date Unspecified part of closed f racture of clavicle 01/05/2011 01/12/2024 Encounters Date Type Department Care Team Description 01/14/2024 Telephone [facility] [address] [place] [address] Katerina Jules PA Results 01/12/2024 11:30 AM ENERGY ATTORNEY Office Visit [facility] [address] [place] [address] Katerina Jules PA Concerns (wants to have liver work up- alcoholism and concerns with bloating and inability to eat much. ); STD (no symptoms or exposure that he is aware of) 01/12/2024 Travel 01/08/2024 Nurse Triage [facility] [address] [place] [address] Pcp, No Error-please disregard from Last 3 [...] Comments Blood Pressure 130/86 01/12/2024 11:34 AM ENERGY ATTORNEY Pulse 82 01/12/2024 11:34 AM ENERGY ATTORNEY Temperature 36.4 ??C (97.6 ??F) 12/03/2023 10:[address] Respiratory Rate 31 12/03/2023 11:30 PM ENERGY ATTORNEY Oxygen Saturation 100% 01/12/2024 11:34 AM ENERGY ATTORNEY Inhaled Oxygen Concentration - - Weight 87.1 kg (192 lb) 01/12/2024 11:34 AM ENERGY ATTORNEY Height 180.3 cm (5' 11) 01/12/2024 11:34 AM ENERGY ATTORNEY Body Mass Index 26.78 01/12/2024 11:34 AM ENERGY ATTORNEY Plan of Treatment Health Maintenance Due Date [...] TRICHOMONAS AMPLIFIED PROBE Routine 01/12/2024 12:19 PM ENERGY ATTORNEY Screen for STD (sexually transmitted disease) GC CHLAMYDIA TRACH PROBE Routine 01/12/2024 12:19 PM ENERGY ATTORNEY Screen for STD (sexually transmitted disease) LC HCV QN INTERP [id number] Routine 01/12/2024 12:06 PM ENERGY ATTORNEY Screen for STD (sexually transmitted disease) ANTI HCV Routine 01/12/2024 12:06 PM ENERGY ATTORNEY Need for hepatitis C screening test GAMMA GT Routine 01/12/2024 12:06 PM ENERGY ATTORNEY Alcohol use disorder COMP METABOLIC PANEL Routine 01/12/2024 12:06 PM ENERGY ATTORNEY Alcohol use disorder LC ACUTE HEPATITIS Routine 01/12/2024 12 :06 PM ENERGY ATTORNEY Screen for STD (sexually transmitted disease) ANTI HBC Routine 01/12/2024 12:06 PM ENERGY ATTORNEY Screen for STD (sexually transmitted disease) HSV TYPE SPEC IGG SIMONE Routine 01/12/2024 12:06 PM ENERGY ATTORNEY Screen for STD (sexually transmitted disease) TREPONEMA PALLIDUM Routine 01/12/2024 12 :06 PM ENERGY ATTORNEY Screen for STD (sexually transmitted disease) ANTI HIV 1/2 Routine 01/12/2024 12:06 PM ENERGY ATTORNEY Screen for STD (sexually transmitted disease) from Last 3 Months Results * TRICHOMONAS AMPLIFIED PROBE (01/12/2024 12:19 PM ENERGY ATTORNEY) TRICHOMONAS AMPLIFIED PROBE Negative 01/15/2024 12:20 PM ENERGY ATTORNEY [facility] Other URINE SPECIMEN / Unknown Non-Blood / Unknown 01/12/2024 12:19 PM ENERGY ATTORNEY 01/12/2024 12:19 PM ENERGY ATTORNEY Katerina PINA MICROBIOLOGY [facility] [address] [place] [address], * GC CHLAMYDIA TRACH PROBE (01/12/2024 12:19 PM ENERGY ATTORNEY) CHLAMYDIA PROBE Negative 1:27 AM ENERGY ATTORNEY [facility] TRAL LABORATORY N GONORRHOEAE PROBE Negative 01/13/2024 1:27 AM ENERGY ATTORNEY [facility] TRAL LABORATORY Other URINE SPECIMEN / Unknown Non-Blood / Unknown 01/12/2024 12:19 PM ENERGY ATTORNEY 01/12/2024 12:19 PM ENERGY ATTORNEY Katerina PINA MICROBIOLOGY Performing Organization Address City/[facility] Co de Phone Number [facility] [address] [place] [address], * LC ACUTE HEPATITIS (01/12/2024 12:06 PM ENERGY ATTORNEY) Hep A IgM Ab Negative Negative 01/15/2024 11:10 AM ENERGY ATTORNEY [facility] Hep B Surf Ag Scr Negative Negative 01/15/2024 11:10 AM ENERGY ATTORNEY [facility] Hep B Core IgM Ab Negative Negative 01/15/2024 11:10 AM ENERGY ATTORNEY [facility] HCV Ab Non Reactive Non Reactive 01/15/2024 11:10 AM [facility] Blood BLOOD SPECIMEN / Unknown Venipuncture / Unknown 01/12/2024 12:06 PM ENERGY ATTORNEY 01/12/2024 12:06 PM ENERGY ATTORNEY N[facility]ative [facility] - 01/15/2024 11:10 AM ENERGY ATTORNEY Performed at: ??01 - [address] ??[id number] Entry Level: Ayden Garcia MD, Phone: ??[phone] Katerina PINA LABORATORY Performing Organization Address [facility]/ZIP Co de Phone Number [facility] ([facility]) [address] [place] [address], * LC HCV QN INTERP [id number] (01/12/2024 12:06 PM ENERGY ATTORNEY) HCV Neg Interp Comment 01/15/2024 11:10 AM ENERGY ATTORNEY [facility] ([facility]) Comment: Not infected with HCV unless early or acute infection is suspected (which may be delayed in an immunocompromised individual), or other evidence exists to indicate HCV infection. Blood BLOOD SPECIMEN / Unknown Venipuncture / Unknown 01/12/2024 12:06 PM ENERGY ATTORNEY 01/12/2024 12:06 PM ENERGY ATTORNEY Narrative [facility] ([facility]) - 01/15/2024 11:10 AM ENERGY ATTORNEY Performed at: ??01 - [facility] [address] [place], [place] ??[id number] Entry Level: Ayden Garcia MD, Phone: ??[phone] Katerina PINA LABORATORY Performing Organization Address [facility] Co de Phone Number [facility] ([facility]) [address] [place] [address], * TREPONEMA PALLIDUM (01/12/2024 12:06 PM ENERGY ATTORNEY) TREPONEMA PALLIDUM Non-Reacti ve Non-Reacti ve 01/12/2024 10:34 PM ENERGY ATTORNEY [facility] TRAL LABORATORY Blood BLOOD SPECIMEN / Unknown Venipuncture / Unknown 01/12/2024 12:06 PM ENERGY ATTORNEY 01/12/2024 12:06 PM ENERGY ATTORNEY Katerina PINA SEND OUTS Performing Organization Address City/[facility]/ZIP Co de Phone Number [facility] [address] [place] [address], [place] * (ABNORMAL) HSV TYPE SPEC IGG SIMONE (01/12/2024 12:06 PM ENERGY ATTORNEY) [facility] HSV-1 IGG ANTIBODY 35.80(H) <=0.89 INDEX 01/13/2024 9:34 AM ENERGY ATTORNEY [facility] HSV-2 IGG ANTIBODY 0.08 <=0.89 INDEX 01/13/2024 9:34 AM ENERGY ATTORNEY [facility] Blood BLOOD SPECIMEN / Unknown Venipuncture / Unknown 01/12/2024 12:06 PM ENERGY ATTORNEY 01/12/2024 12:06 PM ENERGY ATTORNEY Narrative [facility] - 01/13/2024 9:34 AM ENERGY ATTORNEY Interpretation: Negative <0.90 Equivocal 0.90-1.10 Positive ??>1.10 Negative indicates no antibodies detected to HSV-1 and/or HSV-2. Equivocal may indicate early infection, if appropriate, retest in 4 to 12 weeks. A Positive result indicates the presence of IgG antibodies to HSV-1 and/or HSV-2. ? Katerina PINA SEND OUTS [facility] [address] [place] [address], [place] * ANTI HCV (01/12/2024 12:06 PM ENERGY ATTORNEY) [facility] HEPATITIS C ANTIBODY Non-Reacti ve Non-React jared 01/12/2024 10:25 PM ENERGY ATTORNEY [facility] Comment:Please note, per www .CDC.gov: If a patient is known to be at high risk of HCV infection, or is symptomatic, and the physician's suspicion of HCV infection is high, HCV RNA testing is often employed and is of diagnostic value, even after an initial negative anti-HCV test result. Blood BLOOD SPECIMEN / Unknown Venipuncture / Unknown 01/12/2024 12:06 PM ENERGY ATTORNEY 01/12/2024 12:06 PM ENERGY ATTORNEY Katerina PINA SEND OUTS Performing Organization Address [facility]/ZIP Co de Phone Number [facility] [address] [place] [address], * ANTI HBC (01/12/2024 12:06 PM ENERGY ATTORNEY) ANTI HBC Non-React jared Non-React jared 01/12/2024 10:26 PM ENERGY ATTORNEY [facility] Comment:Anti-HBc Antibodies not detected. Does not exclude the possibility of exposure to or infection with HBV. Levels of Anti-HBc may be below the cut-off in early infection. Blood BLOOD SPECIMEN / Unknown Venipuncture / Unknown 01/12/2024 12:06 PM ENERGY ATTORNEY 01/12/2024 12:06 PM ENERGY ATTORNEY Katerina PINA SEND OUTS Performing Organization Address [facility] Co de Phone Number [facility] [address] [place] [address], * ANTI HIV 1/2 (01/12/2024 12:06 PM ENERGY ATTORNEY) Pathologist [facility] HIV-1/HIV-2 SCREEN Non-Reacti ve Non-Reacti ve 01/12/2024 10:26 PM ENERGY ATTORNEY [facility] Comment:HIV-1 p24 and HIV-1/ HIV-2 Ab Not Detected. Blood BLOOD SPECIMEN / Unknown Venipuncture / Unknown 01/12/2024 12:06 PM ENERGY ATTORNEY 01/12/2024 12:06 PM ENERGY ATTORNEY Katerina PINA SEND OUTS Performing Organization Address City/[facility]/ZIP Co de Phone Number [facility] [address] [place] [address], * (ABNORMAL) GAMMA GT (01/12/2024 12:06 PM ENERGY ATTORNEY) Pathologist [facility] GAMMA GT 81(H) 8 - 61 IU/L 01/12/2024 10:05 PM ENERGY ATTORNEY [facility] Blood BLOOD SPECIMEN / Unknown Venipuncture / Unknown 01/12/2024 12:06 PM ENERGY ATTORNEY 01/12/2024 12:06 PM [facility] Katerina PINA [facility]Y [facility] [address] [place] [address], * (ABNORMAL) COMP METABOLIC PANEL (01/12/2024 12:06 PM [facility]) SODIUM 141 136 - 145 mmol/L 01/12/2024 10:05 PM [facility] TRAL LABORATORY POTASSIUM 4.1 3.5 - 5.1 mmol/L 01/12/2024 10:05 PM [facility] CHLORIDE 102 98 - 107 mmol/L 01/12/2024 10:05 PM [facility] CO2,TOTAL 25 22 - 29 mmol/L 01/12/2024 10:05 PM [facility] TRAL LABOR[facility]ORY ANION GAP 14 5 - 18 01/12/2024 10:05 PM [facility] GLUCOSE 126(H) 70 - 99 mg/dL 01/12/2024 10:05 PM [facility] CALCIUM 9.9 8.6 - 10.0 mg/dL 01/12/2024 10:05 PM [facility] BUN 12 6 - 20 mg/dL 01/12/2024 10:05 PM [facility] CREATININE 1.00 0.70 - 1.20 mg/dL 01/12/2024 10:05 PM [facility] BUN/CREAT RATIO 12 10 - 20 10:05 PM [facility] eGFR >90 >90 mL/min/1.7 3m2 01/12/2024 10:05 PM [facility] TRAL [facility] Comment:As of 2022, eG FR is calculated by the CKD-EPI creatinine equation without race adjustment. ??eGFR can be influenced by muscle mass, exercise, and diet. ??The reported eGFR is an estimation only and is only applicable if the renal function is stable. ALBUMIN 5.0(H) 4.0 - 4.9 g/dL 01/12/2024 10:05 PM [facility] TRAL LABOR[facility] PROTEIN,TOTAL 7.7 6.0 - 8.0 g/dL 01/12/2024 10:05 PM [facility] BILIRUBIN,TOTAL 0.3 0.0 - 1.2 mg/dL 01/12/2024 10:05 PM ENERGY ATTORNEY [facility] TRAL LABORATORY ALK PHOSPHATASE 79 40 - 129 IU/L 01/12/2024 10:05 PM [facility] ALT (SGPT) 41 10 - 50 IU/L 01/12/2024 10:05 PM [facility] AST (SGOT) 29 10 - 50 IU/L 01/12/2024 10:05 PM [facility] Blood BLOOD SPECIMEN / Unknown Venipuncture / Unknown 01/12/2024 12:06 PM ENERGY ATTORNEY 01/12/2024 12:06 PM ENERGY ATTORNEY Katerina PINA CHEMISTRY [facility] [address] [place] [address], from Last 3 Months Advance Directives * Full Code (Latest Code Status on File) Date Activated Date Inactivated Comments 01/04/2011 9:55 PM 01/05/2011 5:34 PM Care Teams Channel Cementer Insole Machine Relationship Specialty Start Date End Date Katerina Jules [place] [id number] [place] [id number] PCP - General Physician Reconditioning Associate 01/12/24
[2024-03-13 22:23] LABS: Amphetamine Screen Urine Negative (Negative); Barbiturate Screen Urine Negative (Negative); Benzodiazepines Screen Urine Negative (Negative); Cannabinoid Screen Urine Negative (Negative); Cocaine Screen Urine Negative (Negative); Methadone Screen Urine Negative (Negative); Methamphetamines Screen Urine Negative (Negative); Opiate Screen Urine Negative (Negative); Oxycodone Screen Urine Negative (Negative); Phencyclidine Screen Urine Negative (Negative); Tricyclic Antidepressant Urine Negative (Negative)
[2024-03-13 23:00] VITALS: PULSE 74; RESP 14; O2SAT 100
[2024-03-13 23:10] LABS: Basophils Absolute Auto 0.03 K/uL (0.00-0.30); Basophils Percent Auto 0.5 % (0.0-3.0); Eosinophils Absolute Auto 0.04 K/uL (0.00-0.50); Eosinophils Percent Auto 0.6 % (0.0-7.0); Hematocrit 43.2 % (37.0-53.0); Immature Granulocytes Abs Auto 0.05 K/uL (0.00-0.30); Immature Granulocytes Pct Auto 0.8 %; Lymphocytes Absolute Auto 1.76 K/uL (0.90-2.90); Lymphocytes Percent Auto 27.3 % (20-44); Mean Corpuscular HGB Conc 35 gm/dL (32-36); Mean Corpuscular Hemoglobin 31 pg (26-34); Mean Corpuscular Volume 89 fL (80-100); Monocytes Percent Auto 6.8 % (0.0-11.0); Neutrophils Absolute Auto 4.12 K/uL (1.7-7.0); Platelet Count* 313 K/uL (140-440); RDW Coefficient of Variation % 11.4 % (11.5-15.5); Red Blood Count 4.87 m/uL (4.30-5.90); White Blood Count* 6.44 K/uL (4.50-11.00)
[2024-03-13 23:11] LABS: Chloride* 106 mmol/L (96-114)
[2024-03-13 23:12] LABS: Potassium* 3.7 mmol/L (3.6-5.1); Sodium* 144 mmol/L (135-149)
[2024-03-13 23:14] LABS: Creatinine* 0.9 mg/dL (0.5-1.5); Est. Creatinine Clearance* 124.54; Estimated Glomerular Filt Rate 114 ml/min
[2024-03-13 23:15] LABS: Anion Gap 13 mEq/L (7-15); Blood Urea Nitrogen* 11 mg/dL (5-24); Carbon Dioxide* 25 mmol/L (20-32); Glucose* 99 mg/dL (60-115)
[2024-03-13 23:17] LABS: Acetaminophen* < 10.0 ug/mL (10.0-30.0); Salicylate* < 1.0 mg/dL (1.0-10); Slide Review Reflex No
[2024-03-13 23:18] LABS: C Reactive Protein* < 0.5 mg/dL (0.5-1.0)
[2024-03-13] MEDS: ONDANSETRON ODT 4 MG TAB PO (23:19)
[2024-03-13] MEDS: ELECTROLYTES/DEXTROSE ORAL SOL 1,000 ML 1014 ML PO (23:19)
[2024-03-13 23:22] LABS: Ethanol* 0.29 % (0.01-0.03)
[2024-03-13 23:24] VITALS: BP 118/93; PULSE 84; RESP 16; TEMP 37; O2SAT 99
[2024-03-14 01:51] VITALS: BP 112/76; PULSE 74; RESP 16; O2SAT 98
--- NOTE | 2024-03-14 01:52 | PC.NURSE ---
spoke with [facility] staff and gave report on patient, Dr Avina accepts patient.
[2024-03-14] MEDS: diazePAM 5 MG TABLET PO (02:37)
[2024-03-14] MEDS: ONDANSETRON ODT 4 MG TAB PO (02:38)
--- NOTE | 2024-03-14 03:05 | PC.NURSE ---
report given to EMS, patients belongings sent with patient.
== END 2024-03-14 03:09 | disposition other institution (70) ==
PROVIDERS: Emergency Provider Family Medicine
DX: F10.129 Alcohol abuse with intoxication, unspecified (principal); R45.851 Suicidal ideations
CPT/HCPCS: 36415; 80048; 80143; 80179; 80306; 82077; 85025; 86140; 93005; 94761; 99284; A9270

== ENCOUNTER 2024-03-14 03:04 | Outpatient (CLI) | payer MEDICARE, SELFPAY ==
--- OUTSIDE RECORDS SUMMARY | 2024-03-17 06:56 | XMS_ITS | Patient Health Record ---
Author Name Unknown Organization [facility] - Primary Address [address] [place] [address] Care Team Providers Care Instructor Hairspring Name Role Phone Different, PCP Primary Care [...] chronic (F43.12) Active confirmed Posttraumatic stress disorder ([id number]) PLAN OF TREATMENT No Information Insurance Providers Payer Name Payer Address Payer Phone Subscriber Number Group Number Insured Name Patient Relationship to Insured Coverage Start Date Coverage End Date [facility] [address] [place] [address] [id number] Ag Dykes Self - patient is the insured [facility] [address] [place] [address] [id number] Ag Dykes Self - patient is the insured MEDICAL (GENERAL) HISTORY Medical History History ICD Code PTSD Surgical History Surgery Date(Month/Year) collar bone Rt Hospitalization History Reason Date(Month/Year) ER with chest pain [place] 03/2020
--- OUTSIDE RECORDS SUMMARY | 2024-03-17 06:56 | XMS_ITS | Clinical Summary ---
Author Name Unknown Organization [facility] Address [address] [place] [address] Care Team Providers Care Access Services Representative Name Role Phone [facility] Primary Care Provider Allergies No [...] creatinine equation which includes age and gender (Operators Teacher et al., NEJ, DOI: 10.1056/[id number]) Blood STRUCTURE OF RIGHT UPPER LIMB / Unknown Venipuncture / Unknown 06/07/2022 4:39 PM CDT 06/07/2022 4:43 PM CDT Brad Cummings MD LAB - BLOOD ORDER ANA LABORATORY [facility] Acute Care Lab [address] [facility] Lab (1st floor, no room number) [place] [address], [facility] [phone] from Last 3 Months or Most Recently Relevant to Health Maintenance Care Teams Access Services Representative Relationship Specialty Start Date End Date Clinic - [facility] [address] [place] [address] PCP - General Internal Medicine 12/18/19
--- OUTSIDE RECORDS SUMMARY | 2024-03-17 06:56 | XMS_ITS | Referral Summary ---
Author Name Unknown Organization [facility] Address [facility] [place] [address] Care Team Providers Care Hand Etcher Name Role Phone [facility] Primary Care Provider Allergies No known active [...] and gender (Zuleyma et al., NEJM, DOI: 10.1056/[id number]) Blood STRUCTURE OF RIGHT UPPER LIMB / Unknown Venipuncture / Unknown 06/07/2022 4:39 PM CDT 06/07/2022 4:43 PM CDT Brad Cummings MD LAB - BLOOD ORDER ANA RH LABORATORY [facility] Acute Care Lab [address] Lab (1st floor, no room number) [place] [address], [facility] [phone] from Last 3 Months or Most Recently Relevant to Health Maintenance Care Teams Hand Etcher Relationship Specialty Start Date End Date Clinic - [address] [address] PCP - General Internal Medicine 12/18/19
--- OUTSIDE RECORDS SUMMARY | 2024-03-17 06:56 | XMS_ITS | Clinical Summary ---
Author Name Unknown Organization [facility] Address [place], [place] [address] Care Team Providers Care Inspector Clip On Sunglasses Name Role Phone Katerina Jules Primary Care Provider Allergies No known active allergies Medications No known medications Active Problems Problem Noted Date Diagnosed Date Alcohol use disorder 01/12/2024 Resolved Problems Problem Noted Date Diagnosed Date Resolved Date Unspecified part of closed f racture of clavicle 01/05/2011 01/12/2024 Encounters Date Type Department Care Team Description 01/14/2024 Telephone [facility] [address] [place] [address] Katerina Jules PA Results 01/12/2024 11:30 AM [employer] Office Visit [facility] [address] [place] [address] Katerina Jules PA Concerns (wants to have liver work up- alcoholism and concerns with bloating and inability to eat much. ); STD (no symptoms or exposure that he is aware of) 01/12/2024 Travel 01/08/2024 Nurse Triage [facility] [address] [place] [address] Pcp, No Error-please disregard from Last 3 Months Immunizations Name Administration Dates Next Due Tdap 01/06/2011 Social History Tobacco Use Types Packs/Day Years Used Date Smoking Tobacco: Every Day Cigarettes 0.5 11.4 Started: 2012 Smokeless Tobacco: Never Tobacco Cessation:Ready [...] Comments Blood Pressure 130/86 01/12/2024 11:34 AM [employer] Pulse 82 01/12/2024 11:34 AM [employer] Temperature 36.4 ??C (97.6 ??F) 12/03/2023 10:[address] Respiratory Rate 31 12/03/2023 11:30 PM [employer] Oxygen Saturation 100% 01/12/2024 11:34 AM [employer] Inhaled Oxygen Concentration - - Weight 87.1 kg (192 lb) 01/12/2024 11:34 AM [employer] Height 180.3 cm (5' 11) 01/12/2024 11:34 AM [employer] Body Mass Index 26.78 01/12/2024 11:34 AM [employer] Plan of Treatment Health Maintenance Due Date [...] TRICHOMONAS AMPLIFIED PROBE Routine 01/12/2024 12:19 PM [employer] Screen for STD (sexually transmitted disease) GC CHLAMYDIA TRACH PROBE Routine 01/12/2024 12:19 PM [employer] Screen for STD (sexually transmitted disease) LC HCV QN INTERP [id number] Routine 01/12/2024 12:06 PM [employer] Screen for STD (sexually transmitted disease) ANTI HCV Routine 01/12/2024 12:06 PM [employer] Need for hepatitis C screening test GAMMA GT Routine 01/12/2024 12:06 PM [employer] Alcohol use disorder COMP METABOLIC PANEL Routine 01/12/2024 12:06 PM [employer] Alcohol use disorder LC ACUTE HEPATITIS Routine 01/12/2024 12 :06 PM [employer] Screen for STD (sexually transmitted disease) ANTI HBC Routine 01/12/2024 12:06 PM [employer] Screen for STD (sexually transmitted disease) HSV TYPE SPEC IGG SIMONE Routine 01/12/2024 12:06 PM [employer] Screen for STD (sexually transmitted disease) TREPONEMA PALLIDUM Routine 01/12/2024 12 :06 PM [employer] Screen for STD (sexually transmitted disease) ANTI HIV 1/2 Routine 01/12/2024 12:06 PM [employer] Screen for STD (sexually transmitted disease) from Last 3 Months Results * TRICHOMONAS AMPLIFIED PROBE (01/12/2024 12:19 PM [employer]) TRICHOMONAS AMPLIFIED PROBE Negative 01/15/2024 12:20 PM [employer] [facility] Other URINE SPECIMEN / Unknown Non-Blood / Unknown 01/12/2024 12:19 PM [employer] 01/12/2024 12:19 PM [employer] Katerina PINA MICROBIOLOGY [facility] [address] [place] [address], * GC CHLAMYDIA TRACH PROBE (01/12/2024 12:19 PM [employer]) CHLAMYDIA PROBE Negative 1:27 AM [employer] [facility] TRAL LABORATORY N GONORRHOEAE PROBE Negative 01/13/2024 1:27 AM [employer] [facility] TRAL LABORATORY Other URINE SPECIMEN / Unknown Non-Blood / Unknown 01/12/2024 12:19 PM [employer] 01/12/2024 12:19 PM [employer] Katerina PINA MICROBIOLOGY Performing Organization Address City/[facility] Co de Phone Number [facility] [address] [place] [address], * LC ACUTE HEPATITIS (01/12/2024 12:06 PM [employer]) Hep A IgM Ab Negative Negative 01/15/2024 11:10 AM [employer] [facility] Hep B Surf Ag Scr Negative Negative 01/15/2024 11:10 AM [employer] [facility] Hep B Core IgM Ab Negative Negative 01/15/2024 11:10 AM [employer] [facility] HCV Ab Non Reactive Non Reactive 01/15/2024 11:10 AM [facility] Blood BLOOD SPECIMEN / Unknown Venipuncture / Unknown 01/12/2024 12:06 PM [employer] 01/12/2024 12:06 PM [employer] Narrative [facility] - 01/15/2024 11:10 AM [employer] Performed at: ??01 - [address] ??[id number] Endodontic Assistant: Ayden Garcia MD, Phone: ??[phone] Katerina PINA LABORATORY Performing Organization Address [facility]/ZIP Co de Phone Number [facility] ([facility]) [address] [place] [address], * LC HCV QN INTERP [id number] (01/12/2024 12:06 PM [employer]) HCV Neg Interp Comment 01/15/2024 11:10 AM [employer] [facility] ([facility]) Comment: Not infected with HCV unless early or acute infection is suspected (which may be delayed in an immunocompromised individual), or other evidence exists to indicate HCV infection. Blood BLOOD SPECIMEN / Unknown Venipuncture / Unknown 01/12/2024 12:06 PM [employer] 01/12/2024 12:06 PM [employer] Narrative [facility] ([facility]) - 01/15/2024 11:10 AM [employer] Performed at: ??01 - [facility] [address] [place], [place] ??[id number] Endodontic Assistant: Ayden Garcia MD, Phone: ??[phone] Katerina PINA LABORATORY Performing Organization Address [facility] Co de Phone Number [facility] ([facility]) [address] [place] [address], * TREPONEMA PALLIDUM (01/12/2024 12:06 PM [employer]) TREPONEMA PALLIDUM Non-Reacti ve Non-Reacti ve 01/12/2024 10:34 PM [employer] [facility] TRAL [facility] Blood BLOOD SPECIMEN / Unknown Venipuncture / Unknown 01/12/2024 12:06 PM [employer] 01/12/2024 12:06 PM [employer] Katerina PINA SEND OUTS Performing Organization Address City/[facility]/ZIP Co de Phone Number [facility] [address] [place] [address], [place] * (ABNORMAL) HSV TYPE SPEC IGG SIMONE (01/12/2024 12:06 PM [employer]) [facility] HSV-1 IGG ANTIBODY 35.80(H) <=0.89 INDEX 01/13/2024 9:34 AM [employer] [facility] HSV-2 IGG ANTIBODY 0.08 <=0.89 INDEX 01/13/2024 9:34 AM [employer] [facility] Blood BLOOD SPECIMEN / Unknown Venipuncture / Unknown 01/12/2024 12:06 PM [employer] 01/12/2024 12:06 PM [employer] Narrative [facility] - 01/13/2024 9:34 AM [employer] Interpretation: Negative <0.90 Equivocal 0.90-1.10 Positive ??>1.10 Negative indicates no antibodies detected to HSV-1 and/or HSV-2. Equivocal may indicate early infection, if appropriate, retest in 4 to 12 weeks. A Positive result indicates the presence of IgG antibodies to HSV-1 and/or HSV-2. ? Katerina PINA SEND OUTS [facility] [address] [place] [address], [place] * ANTI HCV (01/12/2024 12:06 PM [employer]) [facility] HEPATITIS C ANTIBODY Non-Reacti ve Non-React jared 01/12/2024 10:25 PM [employer] [facility] Comment:Please note, per www .CDC.gov: If a patient is known to be at high risk of HCV infection, or is symptomatic, and the physician's suspicion of HCV infection is high, HCV RNA testing is often employed and is of diagnostic value, even after an initial negative anti-HCV test result. Blood BLOOD SPECIMEN / Unknown Venipuncture / Unknown 01/12/2024 12:06 PM [employer] 01/12/2024 12:06 PM [employer] Katerina PINA SEND OUTS Performing Organization Address [facility]/ZIP Co de Phone Number [facility] [address] [place] [address], * ANTI HBC (01/12/2024 12:06 PM [employer]) ANTI HBC Non-React jared Non-React jared 01/12/2024 10:26 PM [employer] [facility] Comment:Anti-HBc Antibodies not detected. Does not exclude the possibility of exposure to or infection with HBV. Levels of Anti-HBc may be below the cut-off in early infection. Blood BLOOD SPECIMEN / Unknown Venipuncture / Unknown 01/12/2024 12:06 PM [employer] 01/12/2024 12:06 PM [employer] Katerina PINA SEND OUTS Performing Organization Address [facility] Co de Phone Number [facility] [address] [place] [address], * ANTI HIV 1/2 (01/12/2024 12:06 PM [employer]) Pathologist [facility] HIV-1/HIV-2 SCREEN Non-Reacti ve Non-Reacti ve 01/12/2024 10:26 PM [employer] [facility] Comment:HIV-1 p24 and HIV-1/ HIV-2 Ab Not Detected. Blood BLOOD SPECIMEN / Unknown Venipuncture / Unknown 01/12/2024 12:06 PM [employer] 01/12/2024 12:06 PM [employer] Katerina PINA SEND OUTS Performing Organization Address City/[facility]/ZIP Co de Phone Number [facility] [address] [place] [address], * (ABNORMAL) GAMMA GT (01/12/2024 12:06 PM [employer]) Pathologist [facility] GAMMA GT 81(H) 8 - 61 IU/L 01/12/2024 10:05 PM [employer] [facility] Blood BLOOD SPECIMEN / Unknown Venipuncture / Unknown 01/12/2024 12:06 PM [employer] 01/12/2024 12:06 PM [facility] Katerina PINA [facility]STRY [facility] [address] [place] [address], * (ABNORMAL) COMP METABOLIC PANEL (01/12/2024 12:06 PM [facility]) SODIUM 141 136 - 145 mmol/L 01/12/2024 10:05 PM [facility] TRAL LABORATORY POTASSIUM 4.1 3.5 - 5.1 mmol/L 01/12/2024 10:05 PM [facility] CHLORIDE 102 98 - 107 mmol/L 01/12/2024 10:05 PM [facility] CO2,TOTAL 25 22 - 29 mmol/L 01/12/2024 10:05 PM [facility] ANION GAP 14 5 - 18 01/12/2024 10:[address] [facility] GLUCOSE 126(H) 70 - 99 mg/dL 01/12/2024 10:05 PM [facility] CALCIUM 9.9 8.6 - 10.0 mg/dL 01/12/2024 10:05 PM [facility] BUN 12 6 - 20 mg/dL 01/12/2024 10:[address] [facility] CREATININE 1.00 0.70 - 1.20 mg/dL 01/12/2024 10:[address] [facility] BUN/CREAT RATIO 12 10 - 20 10:[address] [facility] eGFR >90 >90 mL/min/1.7 3m2 01/12/2024 10:05 PM [facility] Comment:As of 2022, eG FR is calculated by the CKD-EPI creatinine equation without race adjustment. ??eGFR can be influenced by muscle mass, exercise, and diet. ??The reported eGFR is an estimation only and is only applicable if the renal function is stable. ALBUMIN 5.0(H) 4.0 - 4.9 g/dL 01/12/2024 10:05 PM [facility] PROTEIN,TOTAL 7.7 6.0 - 8.0 g/dL 01/12/2024 10:05 PM [facility] BILIRUBIN,TOTAL 0.3 0.0 - 1.2 mg/dL 01/12/2024 10:05 PM [employer] [facility] TRAL LABORATORY ALK PHOSPHATASE 79 40 - 129 IU/L 01/12/2024 10:05 PM [facility] ALT (SGPT) 41 10 - 50 IU/L 01/12/2024 10:05 PM [facility] AST (SGOT) 29 10 - 50 IU/L 01/12/2024 10:[address] [facility] Blood BLOOD SPECIMEN / Unknown Venipuncture / Unknown 01/12/2024 12:06 PM [employer] 01/12/2024 12:06 PM [employer] Katerina PINA CHEMISTRY [facility] [address] [place] [address], from Last 3 Months Advance Directives * Full Code (Latest Code Status on File) Date Activated Date Inactivated Comments 01/04/2011 9:55 PM 01/05/2011 5:34 PM Care Teams Inspector Clip On Sunglasses Relationship Specialty Start Date End Date [place]aterina J[place] [id number] [place] [id number] PCP - General Physician Executive Assistant 01/12/24
--- OUTSIDE RECORDS SUMMARY | 2024-03-17 06:56 | XMS_ITS | Encounter Summary ---
Author Name Unknown Organization [place] Address [facility] [place] [address] Care Team Providers Care Prep Cook Name Role Phone [facility] [...] on filedocumented in this encounter Care Teams Prep Cook Relationship Specialty Start Date End Date [facility] [address] [place], [place] [id number] PCP - General Internal Medicine 12/18/19 documented as of this encounter
== END 2024-03-14 03:05 | disposition home or self-care (01) ==
LOC: AMB 03-17 06:54
PROVIDERS: Visit Provider Family Medicine
DX: F10.129 Alcohol abuse with intoxication, unspecified (principal)
CPT/HCPCS: A0425; A0427

== ENCOUNTER 2024-04-08 13:50 | Emergency (ER) | payer MEDICARE, SELFPAY ==
[2024-04-08] VITALS (15 sets, daily range): BP systolic 134–135; BP diastolic 84–96; PULSE 61–88; RESP 20–22; TEMP 36.2–36.5; O2SAT 89–100; BMI 29.9
--- OUTSIDE RECORDS SUMMARY | 2024-04-08 13:57 | XMS_ITS | Clinical Summary ---
Author Organization [facility] Address [place], [place] [address] Care Team Providers Care Manager Wastewater Name Role Phone Katerina Jules Primary Care Provider Allergies No known active allergies Medications No known medications Active Problems Problem Noted Date Diagnosed Date Alcohol use disorder 01/12/2024 Resolved Problems Problem Noted Date Diagnosed Date Resolved Date Unspecified part of closed f racture of clavicle 01/05/2011 01/12/2024 Encounters Date Type Department Care Team Description 01/14/2024 Telephone [facility] [address] [place] [address] Katerina Jules PA Results 01/12/2024 11:30 AM COMPUTER TECHNICAL SUPPORT SPECIALIST Office Visit [facility] [address] [place] [address] Katerina Jules PA Concerns (wants to have liver work up- alcoholism and concerns with bloating and inability to eat much. ); STD (no symptoms or exposure that he is aware of) 01/12/2024 Travel 01/08/2024 Nurse Triage [facility] [address] [place] [address] Pcp, No Error-please disregard from Last 3 [...] Comments Blood Pressure 130/86 01/12/2024 11:34 AM COMPUTER TECHNICAL SUPPORT SPECIALIST Pulse 82 01/12/2024 11:34 AM COMPUTER TECHNICAL SUPPORT SPECIALIST Temperature 36.4 ??C (97.6 ??F) 12/03/2023 10:[address] Respiratory Rate 31 12/03/2023 11:30 PM COMPUTER TECHNICAL SUPPORT SPECIALIST Oxygen Saturation 100% 01/12/2024 11:34 AM COMPUTER TECHNICAL SUPPORT SPECIALIST Inhaled Oxygen Concentration - - Weight 87.1 kg (192 lb) 01/12/2024 11:34 AM COMPUTER TECHNICAL SUPPORT SPECIALIST Height 180.3 cm (5' 11) 01/12/2024 11:34 AM COMPUTER TECHNICAL SUPPORT SPECIALIST Body Mass Index 26.78 01/12/2024 11:34 AM COMPUTER TECHNICAL SUPPORT SPECIALIST Plan of Treatment Health Maintenance Due Date [...] TRICHOMONAS AMPLIFIED PROBE Routine 01/12/2024 12:19 PM COMPUTER TECHNICAL SUPPORT SPECIALIST Screen for STD (sexually transmitted disease) GC CHLAMYDIA TRACH PROBE Routine 01/12/2024 12:19 PM COMPUTER TECHNICAL SUPPORT SPECIALIST Screen for STD (sexually transmitted disease) LC HCV QN INTERP [id number] Routine 01/12/2024 12:06 PM COMPUTER TECHNICAL SUPPORT SPECIALIST Screen for STD (sexually transmitted disease) ANTI HCV Routine 01/12/2024 12:06 PM COMPUTER TECHNICAL SUPPORT SPECIALIST Need for hepatitis C screening test GAMMA GT Routine 01/12/2024 12:06 PM COMPUTER TECHNICAL SUPPORT SPECIALIST Alcohol use disorder COMP METABOLIC PANEL Routine 01/12/2024 12:06 PM COMPUTER TECHNICAL SUPPORT SPECIALIST Alcohol use disorder LC ACUTE HEPATITIS Routine 01/12/2024 12 :06 PM COMPUTER TECHNICAL SUPPORT SPECIALIST Screen for STD (sexually transmitted disease) ANTI HBC Routine 01/12/2024 12:06 PM COMPUTER TECHNICAL SUPPORT SPECIALIST Screen for STD (sexually transmitted disease) HSV TYPE SPEC IGG SIMONE Routine 01/12/2024 12:06 PM COMPUTER TECHNICAL SUPPORT SPECIALIST Screen for STD (sexually transmitted disease) TREPONEMA PALLIDUM Routine 01/12/2024 12 :06 PM COMPUTER TECHNICAL SUPPORT SPECIALIST Screen for STD (sexually transmitted disease) ANTI HIV 1/2 Routine 01/12/2024 12:06 PM COMPUTER TECHNICAL SUPPORT SPECIALIST Screen for STD (sexually transmitted disease) from Last 3 Months Results * TRICHOMONAS AMPLIFIED PROBE (01/12/2024 12:19 PM COMPUTER TECHNICAL SUPPORT SPECIALIST) TRICHOMONAS AMPLIFIED PROBE Negative 01/15/2024 12:20 PM COMPUTER TECHNICAL SUPPORT SPECIALIST [facility] Other URINE SPECIMEN / Unknown Non-Blood / Unknown 01/12/2024 12:19 PM COMPUTER TECHNICAL SUPPORT SPECIALIST 01/12/2024 12:19 PM COMPUTER TECHNICAL SUPPORT SPECIALIST Katerina PINA MICROBIOLOGY [facility] [address] [place] [address] * GC CHLAMYDIA TRACH PROBE (01/12/2024 12:19 PM COMPUTER TECHNICAL SUPPORT SPECIALIST) CHLAMYDIA PROBE Negative 1:27 AM COMPUTER TECHNICAL SUPPORT SPECIALIST [facility] N GONORRHOEAE PROBE Negative 01/13/2024 1:27 AM COMPUTER TECHNICAL SUPPORT SPECIALIST [facility] Other URINE SPECIMEN / Unknown Non-Blood / Unknown 01/12/2024 12:19 PM COMPUTER TECHNICAL SUPPORT SPECIALIST 01/12/2024 12:19 PM COMPUTER TECHNICAL SUPPORT SPECIALIST Katerina PINA MICROBIOLOGY Performing Organization Address City/[facility]/ZIP Co de Phone Number [facility] [address] [place] [address], * LC ACUTE HEPATITIS (01/12/2024 12:06 PM COMPUTER TECHNICAL SUPPORT SPECIALIST) Hep A IgM Ab Negative Negative 01/15/2024 11:10 AM COMPUTER TECHNICAL SUPPORT SPECIALIST [facility] Hep B Surf Ag Scr Negative Negative 01/15/2024 11:10 AM COMPUTER TECHNICAL SUPPORT SPECIALIST [facility] Hep B Core IgM Ab Negative Negative 01/15/2024 11:10 AM COMPUTER TECHNICAL SUPPORT SPECIALIST [facility] HCV Ab Non Reactive Non Reactive 01/15/2024 11:10 AM [facility] Blood BLOOD SPECIMEN / Unknown Venipuncture / Unknown 01/12/2024 12:06 PM COMPUTER TECHNICAL SUPPORT SPECIALIST 01/12/2024 12:06 PM COMPUTER TECHNICAL SUPPORT SPECIALIST Narrative [facility] ([facility]) - 01/15/2024 11:10 AM COMPUTER TECHNICAL SUPPORT SPECIALIST Performed at: ??01 - [address] ??[id number] Port Engineer: Ayden Garcia MD, Phone: ??[phone] Katerina PINA LABORATORY Performing Organization Address [facility] Co de Phone Number [facility] ([facility]) [address] [place] [address], * LC HCV QN INTERP [id number] (01/12/2024 12:06 PM COMPUTER TECHNICAL SUPPORT SPECIALIST) HCV Neg Interp Comment 01/15/2024 11:10 AM COMPUTER TECHNICAL SUPPORT SPECIALIST [facility] ([facility]) Comment: Not infected with HCV unless early or acute infection is suspected (which may be delayed in an immunocompromised individual), or other evidence exists to indicate HCV infection. Blood BLOOD SPECIMEN / Unknown Venipuncture / Unknown 01/12/2024 12:06 PM COMPUTER TECHNICAL SUPPORT SPECIALIST 01/12/2024 12:06 PM COMPUTER TECHNICAL SUPPORT SPECIALIST Narrative [facility] ([facility]) - 01/15/2024 11:10 AM COMPUTER TECHNICAL SUPPORT SPECIALIST Performed at: ??01 - [facility] [address] [place], [place] ??[id number] Port Engineer: Ayden Garcia MD, Phone: ??[phone] Katerina PINA LABORATORY Performing Organization Address [facility] de Phone Number [facility] ([facility]) [address] [place] [address], * TREPONEMA PALLIDUM (01/12/2024 12:06 PM COMPUTER TECHNICAL SUPPORT SPECIALIST) TREPONEMA PALLIDUM Non-Reacti ve Non-Reacti ve 01/12/2024 10:34 PM COMPUTER TECHNICAL SUPPORT SPECIALIST [facility] Blood BLOOD SPECIMEN / Unknown Venipuncture / Unknown 01/12/2024 12:06 PM COMPUTER TECHNICAL SUPPORT SPECIALIST 01/12/2024 12:06 PM COMPUTER TECHNICAL SUPPORT SPECIALIST Katerina PINA SEND OUTS Performing Organization Address City/[facility]/ZIP Co de Phone Number [facility] [address] [place] [address], * (ABNORMAL) HSV TYPE SPEC IGG SIMONE (01/12/2024 12:06 PM COMPUTER TECHNICAL SUPPORT SPECIALIST) [facility] HSV-1 IGG ANTIBODY 35.80(H) <=0.89 INDEX 01/13/2024 9:34 AM COMPUTER TECHNICAL SUPPORT SPECIALIST [facility] HSV-2 IGG ANTIBODY 0.08 <=0.89 INDEX 01/13/2024 9:34 AM COMPUTER TECHNICAL SUPPORT SPECIALIST [facility] Blood BLOOD SPECIMEN / Unknown Venipuncture / Unknown 01/12/2024 12:06 PM COMPUTER TECHNICAL SUPPORT SPECIALIST 01/12/2024 12:06 PM COMPUTER TECHNICAL SUPPORT SPECIALIST Narrative [facility] - 01/13/2024 9:34 AM COMPUTER TECHNICAL SUPPORT SPECIALIST Interpretation: Negative <0.90 Equivocal 0.90-1.10 Positive ??>1.10 Negative indicates no antibodies detected to HSV-1 and/or HSV-2. Equivocal may indicate early infection, if appropriate, retest in 4 to 12 weeks. A Positive result indicates the presence of IgG antibodies to HSV-1 and/or HSV-2. ? Katerina PINA SEND OUTS [facility] [address] [place] [address], * ANTI HCV (01/12/2024 12:06 PM COMPUTER TECHNICAL SUPPORT SPECIALIST) [facility] HEPATITIS C ANTIBODY Non-Reacti ve Non-React jared 01/12/2024 10:25 PM COMPUTER TECHNICAL SUPPORT SPECIALIST [facility] Comment:Please note, [...] Unknown Venipuncture / Unknown 01/12/2024 12:06 PM COMPUTER TECHNICAL SUPPORT SPECIALIST 01/12/2024 12:06 PM COMPUTER TECHNICAL SUPPORT SPECIALIST Katerina PINA SEND OUTS Performing Organization Address [facility]/ZIP Co de Phone Number [facility] [address] [place] [address], * ANTI HBC (01/12/2024 12:06 PM COMPUTER TECHNICAL SUPPORT SPECIALIST) ANTI HBC Non-React jared Non-React jared 01/12/2024 10:26 PM COMPUTER TECHNICAL SUPPORT SPECIALIST [facility] Comment:Anti-HBc Antibodies not detected. Does not exclude the possibility of exposure to or infection with HBV. Levels of Anti-HBc may be below the cut-off in early infection. Blood BLOOD SPECIMEN / Unknown Venipuncture / Unknown 01/12/2024 12:06 PM COMPUTER TECHNICAL SUPPORT SPECIALIST 01/12/2024 12:06 PM COMPUTER TECHNICAL SUPPORT SPECIALIST Katerina PINA SEND OUTS Performing Organization Address [facility] Co de Phone Number [facility] [address] [place] [address], * ANTI HIV 1/2 (01/12/2024 12:06 PM COMPUTER TECHNICAL SUPPORT SPECIALIST) Pathologist [facility] HIV-1/HIV-2 SCREEN Non-Reacti ve Non-Reacti ve 01/12/2024 10:26 PM COMPUTER TECHNICAL SUPPORT SPECIALIST [facility] Comment:HIV-1 p24 and HIV-1/ HIV-2 Ab Not Detected. Blood BLOOD SPECIMEN / Unknown Venipuncture / Unknown 01/12/2024 12:06 PM COMPUTER TECHNICAL SUPPORT SPECIALIST 01/12/2024 12:06 PM COMPUTER TECHNICAL SUPPORT SPECIALIST Katerina PINA SEND OUTS Performing Organization Address City/[facility] Co de Phone Number [facility] [address] [place] [address], * (ABNORMAL) GAMMA GT (01/12/2024 12:06 PM COMPUTER TECHNICAL SUPPORT SPECIALIST) Pathologist [facility] GAMMA GT 81(H) 8 - 61 IU/L 01/12/2024 10:05 PM COMPUTER TECHNICAL SUPPORT SPECIALIST [facility] Blood BLOOD SPECIMEN / Unknown Venipuncture / Unknown 01/12/2024 12:06 PM COMPUTER TECHNICAL SUPPORT SPECIALIST 01/12/2024 12:06 PM [facility] Katerina PINA [facility]Y [facility] [address] [place] [address], * (ABNORMAL) COMP METABOLIC PANEL (01/12/2024 12:06 PM [facility]) SODIUM 141 136 - 145 mmol/L 01/12/2024 10:05 PM [facility] POTASSIUM 4.1 3.5 - 5.1 mmol/L 01/12/2024 10:05 PM [facility] CHLORIDE 102 98 - 107 mmol/L 01/12/2024 10:05 PM [facility] CO2,TOTAL 25 22 - 29 mmol/L 01/12/2024 10:05 PM [facility] ANION GAP 14 5 - 18 01/12/2024 10:05 PM [facility] GLUCOSE 126(H) 70 - 99 mg/dL 01/12/2024 10:05 PM [facility] CALCIUM 9.9 8.6 - 10.0 mg/dL 01/12/2024 10:05 PM [facility] BUN 12 6 - 20 mg/dL 01/12/2024 10:05 PM [facility] CREATININE 1.00 0.70 - 1.20 mg/dL 01/12/2024 10:05 PM [facility] BUN/CREAT RATIO 12 10 - 20 10:05 PM [facility] eGFR >90 >90 mL/min/1.7 3m2 01/12/2024 10:05 PM [facility] Comment:As of 2022, eG FR is calculated by the CKD-EPI creatinine equation without race adjustment. ??eGFR can be influenced by muscle mass, exercise, and diet. ??The reported eGFR is an estimation only and is only applicable if the renal function is stable. ALBUMIN 5.0(H) 4.0 - 4.9 g/dL 01/12/2024 10:05 PM [facility] PROTEIN,TOTAL 7.7 6.0 - 8.0 g/dL 01/12/2024 10:05 PM [facility] BILIRUBIN,TOTAL 0.3 0.0 - 1.2 mg/dL 01/12/2024 10:05 PM COMPUTER TECHNICAL SUPPORT SPECIALIST [facility] TR[facility] ALK PHOSPHATASE 79 40 - 129 IU/L 01/12/2024 10:05 PM [facility] ALT (SGPT) 41 10 - 50 IU/L 01/12/2024 10:05 PM [facility] AST (SGOT) 29 10 - 50 IU/L 01/12/2024 10:[address] [facility] Blood BLOOD SPECIMEN / Unknown Venipuncture / Unknown 01/12/2024 12:06 PM COMPUTER TECHNICAL SUPPORT SPECIALIST 01/12/2024 12:06 PM COMPUTER TECHNICAL SUPPORT SPECIALIST Katerina PINA CHEMISTRY [facility] [address] [place] [address], from Last 3 Months Advance Directives * Full Code (Latest Code Status on File) Date Activated Date Inactivated Comments 01/04/2011 9:55 PM 01/05/2011 5:34 PM Care Teams Manager Wastewater Relationship Specialty [place] [address] [place] [address] PCP - General Physician Shoe Shanker 01/12/24
--- OUTSIDE RECORDS SUMMARY | 2024-04-08 13:57 | XMS_ITS | Clinical Summary ---
Author Organization [place] Address [address] [place] [address] Care Team Providers Care Supervisor Paper Products Name Role Phone [facility] Primary Care Provider Allergies No known active [...] Tdap) 01/06/2021 01/06/2011 COVID-19 Vaccine (1 - season) 2023 PHQ-2 (once per calendar [...] includes age and gender (Zuleyma et al., NEJ, DOI: 10.1056/[id number]) Blood STRUCTURE OF RIGHT UPPER LIMB / Unknown Venipuncture / Unknown 06/07/2022 4:39 PM CDT 06/07/2022 4:43 PM CDT Brad Cummings MD LAB - BLOOD ORDER ANA LABORATORY [facility] Lab [address] [facility] Lab (1st floor, no room number) [place] [address], [facility] [phone] from Last 3 Months or Most Recently Relevant to Health Maintenance Care Teams Supervisor Paper Products Relationship Specialty Start Date End Date Clinic - [facility] [address] [place] [address] PCP - General Internal Medicine 12/18/19
--- OUTSIDE RECORDS SUMMARY | 2024-04-08 13:57 | XMS_ITS | Encounter Summary ---
Author Organization [place] Address [address] [place] [address]. [place] [address] Care Team Providers Care Customer Accounts Advisor Name Role Phone [facility] Primary Care Provider Encounter Details Date [...] on filedocumented in this encounter Care Teams Customer Accounts Advisor Relationship Specialty Start Date End Date [facility] [address] [place] [address] PCP - General Internal Medicine 12/18/19 documented as of this encounter
--- OUTSIDE RECORDS SUMMARY | 2024-04-08 13:57 | XMS_ITS | Referral Summary ---
Author Organization [place] Address [facility] [place] [address] Care Team Providers Care Communication Clerk Name Role Phone [facility] Primary Care Provider Allergies No known [...] and gender (Zuleyma et al., NEJM, DOI: 10.1056/[id number]) Blood STRUCTURE OF RIGHT UPPER LIMB / Unknown Venipuncture / Unknown 06/07/2022 4:39 PM CDT 06/07/2022 4:43 PM CDT Bard Cummings MD LAB - BLOOD ORDER ANA RH LABORATORY [facility] Acute [facility] Lab [address] Lab (1st floor, no room number) [place] [address], [facility] [phone] from Last 3 Months or Most Recently Relevant to Health Maintenance Care Teams Communication Clerk Relationship Specialty Start Date End Date Clinic - [address] [address] PCP - General Internal Medicine 12/18/19
--- NOTE | 2024-04-08 14:01 | ED_ITS ---
HPI - General Adult General Date Seen: 04/08/24 Chief complaint: Alcohol/Intoxication Stated complaint: Alcohol withdrawals/anxiety Time Seen by Provider: 04/08/24 14:01 History of Present Illness HPI narrative: 34-year-old gentleman with a history of alcohol abuse (previous visit to the ER on 03/12 and 03/13/2024 for alcohol related complaints) . He was sent to [facility] detox after his ER visit on 03/13. Patient reports that he has a longstanding history of alcohol abuse and has been through withdrawal and treatment multiple times. It sounds like he has never had a prolonged period of sobriety but has been sober up to 8 or 9 months per spell. He had been to [facility] and spent 1 day there after his ER visits on March 13. He says he was really only sober for about 3 days after that visit and then relapsed due to family problems and has been drinking heavily since then. When asked, she is drinking he says, ?too much. ?. He indicates that is at least a L of vodka per day. He says he knows he needs to quit drinking and he has been trying to wean himself down for the past 2 or 3 days. He has done this in the past and says typically he will take a drink or 2 in the morning and then only take a shot if he needs it for anxiety or withdrawal or nausea or vomiting. Since he started cutting back on drinking he says he has been feeling increasingly anxious. He has been nauseous and having trouble taking anything p.o.. He has also developed upper abdominal pain. He has had upper abdominal pain with previous episodes of alcohol withdrawal but never this severe. He is feeling anxious. He came back to the ER today desiring some IV fluids and medications for his withdrawal. He has a goal of getting treated here in the ER and then continuing to wean and detox himself at home. He says he actually wants to go ?play a gate? tonsharad. He then has plans to meet with his sister and her children. They are visiting from [place] and he has not seen them in over a year. He does not want alcohol treatment or inpatient admission. He has no previous history of seizures from alcohol withdrawal. It sounds like he has never had an ICU stay but he has had several visits to the ER when he has been in withdrawal. Related Data Previous Rx's ?Medication ?Instructions ?Recorded omeprazole 40 mg capsule,delayed 40 mg PO DAILY #30 caps 04/08/24 release Allergies Allergy/AdvReac Type Severity Reaction Status Date / Time No Known Drug Allergies Allergy Verified 04/08/24 13:59 [facility] Social History Smoking Status: Current every day smoker What tobacco products do you use: cigarettes Smoking packs per day: 1 Smoking cigarettes per day: 20.0 Years smoked: 6 Smoking pack-years: 6.00 Do you use any of these nicotine containing products: None Second hand tobacco smoke exposure: Yes How often do you have a drink containing alcohol: 4 or more times a week How many standard drinks containing alcohol do you have on a typical day: 10 or more How often do you have six or more drinks on one occasion: Daily or almost daily AUDIT-C Alcohol total score: 12 Non-prescribed substance use: marijuana (any form) service: No Exam Narrative: Exam Narrative: Constitutional: Appears well-developed and well-nourished. Alert. Conversant and very polite but is anxious. Tremulous. HENT: Head: Atraumatic. Nose: Nose normal. Mouth/Throat: Oral mucosa is clear and moist. no trismus. Pharynx normal. Tonsils symmetric. No tonsillar enlargement, erythema, or exudate. Eyes: Conjunctivae normal. EOM normal. Pupils equal, round, and reactive to li ght. No scleral icterus. Neck: Normal range of motion. Neck supple. No tracheal deviation present. Cardiovascular: Normal rate, regular rhythm. No gallop. No friction rub. No murmur heard. Symmetric radial artery pulses Pulmonary/Chest: Effort normal. No stridor. No respiratory distress. No wheezes. No rales. No rhonchi . No tenderness. Abdominal: Soft. Bowel sounds normal. No distension. No mass. Epigastric tenderness. No rebound. No guarding. Musculoskeletal: RUE: Normal range of motion. No tenderness. No deformity LUE: Normal range of motion. No tenderness. No deformity RLE: Normal range of motion. No edema. No tenderness. No deformity LLE: Normal range of motion. No edema. No tenderness. No deformity Neurological: Alert and oriented to person, place, and time. Normal strength. CN II-VII intact. No sensory deficit. GCS eye subscore is 4. GCS verbal subscore is 5. GCS motor subscore is 6. Normal coordination Skin: Skin is warm and dry. No rash noted. No pallor. Normal capillary refill. Psychiatric: Endorses anxiety, shakiness, nausea, abdominal pain which he attributes to withdrawal. He says he knows he has baseline anxiety and that it exacerbates when he does not drink. He is not suicidal or homicidal. No hallucinations. Forward motivated thinking. 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 Const: Vital Signs, click to edit/add: Vital Signs - 24 hr 04/08/24 13:54 04/08/24 14:03 04/08/24 14:07 Temperature 97.1 F L 97.7 F Pulse Rate 77 Pulse Rate [Pulse Oximeter] 84 71 Respiratory Rate 22 20 Blood Pressure 135/96 H Blood Pressure [Ri ght Arm] 135/96 H Blood Pressure [Ri ght Upper Arm] 134/84 Pulse Oximetry 100 100 100 Oxygen Delivery Me thod Room Air Room Air 04/08/24 14:08 04/08/24 14:30 04/08/24 14:35 Temperature Pulse Rate 77 68 61 Pulse Rate [Pulse Oximeter] Respiratory Rate Blood Pressure Blood Pressure [Ri ght Arm] Blood Pressure [Ri ght Upper Arm] Pulse Oximetry 100 100 99 Oxygen Delivery Me thod 04/08/24 15:00 04/08/24 15:05 04/08/24 15:30 Temperature Pulse Rate 64 65 76 Pulse Rate [Pulse Oximeter] Respiratory Rate Blood Pressure Blood Pressure [Ri ght Arm] Blood Pressure [Ri ght Upper Arm] Pulse Oximetry 98 99 99 Oxygen Delivery Me thod 04/08/24 15:35 Temperature Pulse Rate 78 Pulse Rate [Pulse Oximeter] Respiratory Rate Blood Pressure Blood Pressure [Ri ght Arm] Blood Pressure [Ri ght Upper Arm] Pulse Oximetry 96 Oxygen Delivery Me thod Course Vital Signs Vital signs: Initial Vital Signs Temperature 97.1 F L 04/08/24 13:54 Temperature Source Temporal Artery Scan 04/08/24 13:54 Pulse Rate 84 04/08/24 13:54 Respiratory Rate 22 04/08/24 13:54 Blood Pressure 134/84 04/08/24 13:54 Blood Pressure Mean 100 04/08/24 13:54 Blood Pressure Position Sitting 04/08/24 13:54 Pulse Oximetry 100 04/08/24 13:54 Oxygen Delivery Method Room Air 04/08/24 13:54 Vital Signs Temperature 97.1 F L 04/08/24 13:54 Pulse Rate 84 04/08/24 13:54 Respiratory Rate 22 04/08/24 13:54 Blood Pressure 134/84 04/08/24 13:54 Pulse Oximetry 100 04/08/24 13:54 Oxygen Delivery Method Room Air 04/08/24 13:54 Temperature 97.7 F 04/08/24 14:03 Pulse Rate 78 04/08/24 15:35 Respiratory Rate 20 04/08/24 14:03 Blood Pressure 135/96 H 04/08/24 14:07 Pulse Oximetry 96 04/08/24 15:35 Oxygen Delivery Method Room Air 04/08/24 14:03 Medications Administered Medications: Generic Name Dose Route Start Last Admin Trade Name Freq PRN Reason Stop Dose Admin Folic Acid 1 mg/ Multivitamins 1,011.2 mls @ 252.8 mls/hr 04/08/24 14:18 04/08/24 14:50 10 ml/ Thiamine HCl 100 mg/ IV 04/08/24 18:17 252.8 mls/hr Sodium Chloride .Q4H LETI Administration Lorazepam 1 mg 04/08/24 14:20 04/08/24 14:32 Lorazepam 2 Mg/Ml Inj IVP 1 mg Q1H PRN Administration Discontinued Medications Generic Name Dose Route Start Last Admin Trade Name Freq PRN Reason Stop Dose Admin Lidocaine/Aluminum/Magnesium/Simeth 30 ml 04/08/24 15:54 04/08/24 16:02 Gi Cocktail (Visc Lido/Antacid) 30 Ml PO 04/08/24 15:55 30 ml ONCE ONE Administration Lorazepam 1 mg 04/08/24 15:42 04/08/24 15:56 Lorazepam 2 Mg/Ml Inj IVP 04/08/24 15:43 1 mg ONCE ONE Administration Medical Decision Making MDM Narrative Medical decision making narrative: 34-year-old male presenting to the ER today with concerns of nausea, vomiting, anxiety, tremulousness. He reports a history of heavy alcohol abuse ongoing off and on for years. He has been drinking heavily again for the past 2 or 3 weeks and desires to quit. He started weaning himself off a couple of days ago and has much decreased his alcohol consumption (only 2 or 3 shots this morning). Despite that he still having significant withdrawal in came back to the ER. 1. Alcohol withdrawal- alcohol level 0. does have elevated CIWA scale. Treated with IV Ativan here in the ER. Normal sensorium. No history of seizures. No seizure activity today. He was treated with Ativan 1 mg IV x2 doses and felt substantially better. Less anxiety. Tremulousness improved. Discussed with the patient that I have concerned about alcohol withdrawal and his ability to go through it at home. He says he has done it multiple times. He is refusing hospitalization. Although there is symptoms of alcohol withdrawal he clearly has intact sensorium and does have medical decision-making capacity. Therefore we will support him with a estimates prescription for Ativan that he can use for alcohol withdrawal at home. Sedation and benzodiazepine precautions reviewed. He will not mix this with alcohol. 2. Hepatic function- bilirubin mildly elevated at 12.6. AST 94 and ALT 91 are both abnormal but similar to his previous based on labs. Suspect likely related to recent heavy alcohol consumption. 3. Abdominal pain. Endorsing epigastric abdominal pain and nausea. Initial exam is showed epigastric tenderness but was nonsurgical. No Tomas sign or focal right upper quadrant tenderness. Lipase normal. I a white blood cell count normal. No lower abdominal tenderness is suggest early appendicitis. Pain improved while here in the ER. Repeat exam no longer tender. At this point I do not think he needs advanced imaging. Differential includes alcoholic gastritis, peptic ulcer disease. No symptoms of GI bleed. Will try an empiric prescription for Prilosec to help in case there is gastr itis. He will substitute from alcohol. Return to the ER immediately with any recurrent pain or other worsening symptoms. Lab Data Labs: Lab Results 04/08/24 Range/Units 14:15 WBC 6.52 (4.50-11.00) K/uL RBC 4.80 (4.30-5.90) m/uL Hgb 14.7 (13.5-17.5) gm/dL Hct 42.7 (37.0-53.0) % MCV 89 (80-100) fL MCH 31 (26-34) pg MCHC 34 (32-36) gm/dL RDW Coeff of Magdalena 11.8 (11.5-15.5) % Plt Count 229 (140-440) K/uL Neut % (Auto) 76.1 H (42.0-72.0) % Lymph % (Auto) 13.3 L (20-44) % [place] % (Auto) 7.8 (0.0-11.0) % Eos % (Auto) 1.1 (0.0-7.0) % Baso % (Auto) 0.5 (0.0-3.0) % Neut # (Auto) 5.00 (1.7-7.0) K/uL Lymph # (Auto) 0.90 (0.90-2.90) K/uL [place] # (Auto) 0.50 (0.00-0.90) K/UL Eos # (Auto) 0.07 (0.00-0.50) K/uL Baso # (Auto) 0.03 (0.00-0.30) K/uL Abs Immat Gran (auto) 0.08 (0.00-0.30) K/uL Imm/Tot Granulo (auto) 1.2 % Sodium 138 (135-149) mmol/L Potassium 3.5 L (3.6-5.1) mmol/L Chloride 101 (96-114) mmol/L Carbon Dioxide 26 (20-32) mmol/L Anion Gap 11 (7-15) mEq/L BUN 14 (5-24) mg/dL Creatinine 0.8 (0.5-1.5) mg/dL Estimated Creat Clear 115.19 Estimated GFR 118 ml/min Glucose 122 H (60-115) mg/dL Calcium 9.4 (8.4-10.6) mg/dL Total Bilirubin 1.6 H (0.1-1.5) mg/dL AST 94 H (12-35) U/L ALT 91 H (4-50) U/L Alkaline Phosphatase 97 (40-150) U/L Total Protein 8.4 H (6.0-8.3) g/dL Albumin 5.2 H (3.3-5.0) g/dL Lipase 193 (23-300) U/L Ethyl Alcohol < 0.01 L (0.01-0.03) % ECG Data Attestation: I personally reviewed and interpreted this ECG as follows: Interpretation: Normal sinus rhythm Rate: 65 NC: 116. No delta waves QRS axis: Normal axis. No pathologic Q-waves. ST segment/T wave: No ST segment elevation or depression. QTc: 420 Discharge Plan Discharge Clinical Impression: Alcohol withdrawal syndrome, Abdominal pain, epigastric Patient Disposition: Home, Self-Care Condition: Stable Prescriptions: New omeprazole 40 mg capsule,delayed release(DR/EC) 40 mg PO DAILY Qty: 30 2RF Follow Up/Referrals: Provider,Not a Local [Primary Care Provider] - Stand Alone Forms: [email or web address] Info Instructions
--- OUTSIDE RECORDS SUMMARY | 2024-04-08 14:28 | XMS_ITS | Patient Health Record ---
Author Organization [facility] - Primary Address [address] [place] [address] Care Team Providers Care Felt Finishing Supervisor Name Role Phone Different, PCP Primary Care [...] chronic (F43.12) Active confirmed Posttraumatic stress disorder ([id number]) PLAN OF TREATMENT No Information Insurance Providers Payer Name Payer Address Payer Phone Subscriber Number Group Number Insured Name Patient Relationship to Insured Coverage Start Date Coverage End Date [facility] [address] [place] [phone] [id number] Ag Dykes Self - patient is the insured [facility] [address] [place] [address] [id number] Ag Dykes Self - patient is the insured MEDICAL (GENERAL) HISTORY Medical History History ICD Code PTSD Surgical History Surgery Date(Month/Year) collar bone Rt Hospitalization History Reason Date(Month/Year) ER with chest pain [place] 03/2020
--- OUTSIDE RECORDS SUMMARY | 2024-04-08 14:28 | XMS_ITS | Clinical Summary ---
Author Organization [facility] Address [place], [place] [address] Care Team Providers Care Monument Letterer Name Role Phone Katerina Jules Primary Care Provider Allergies No known active allergies Medications No known medications Active Problems Problem Noted Date Diagnosed Date Alcohol use disorder 01/12/2024 Resolved Problems Problem Noted Date Diagnosed Date Resolved Date Unspecified part of closed f racture of clavicle 01/05/2011 01/12/2024 Encounters Date Type Department Care Team Description 01/14/[address] [facility] [address] [place] [address] Katerina Jules PA Results 01/12/2024 11:30 AM ROTARY SHEAR OPERATOR Office Visit [facility] [address] [place] [address] Katerina Jules PA Concerns (wants to have liver work up- alcoholism and concerns with bloating and inability to eat much. ); STD (no symptoms or exposure that he is aware of) 01/12/2024 Travel 01/08/[address] [facility] [address] [place] [address] Pcp, No Error-please disregard from Last 3 [...] Comments Blood Pressure 130/86 01/12/2024 11:34 AM ROTARY SHEAR OPERATOR Pulse 82 01/12/2024 11:34 AM ROTARY SHEAR OPERATOR Temperature 36.4 ??C (97.6 ??F) 12/03/2023 10:[address] Respiratory Rate 31 12/03/2023 11:30 PM ROTARY SHEAR OPERATOR Oxygen Saturation 100% 01/12/2024 11:34 AM ROTARY SHEAR OPERATOR Inhaled Oxygen Concentration - - Weight 87.1 kg (192 lb) 01/12/2024 11:34 AM ROTARY SHEAR OPERATOR Height 180.3 cm (5' 11) 01/12/2024 11:34 AM ROTARY SHEAR OPERATOR Body Mass Index 26.78 01/12/2024 11:34 AM ROTARY SHEAR OPERATOR Plan of Treatment Health Maintenance Due Date [...] TRICHOMONAS AMPLIFIED PROBE Routine 01/12/2024 12:19 PM ROTARY SHEAR OPERATOR Screen for STD (sexually transmitted disease) GC CHLAMYDIA TRACH PROBE Routine 01/12/2024 12:19 PM ROTARY SHEAR OPERATOR Screen for STD (sexually transmitted disease) LC HCV QN INTERP [id number] Routine 01/12/2024 12:06 PM ROTARY SHEAR OPERATOR Screen for STD (sexually transmitted disease) ANTI HCV Routine 01/12/2024 12:06 PM ROTARY SHEAR OPERATOR Need for hepatitis C screening test GAMMA GT Routine 01/12/2024 12:06 PM ROTARY SHEAR OPERATOR Alcohol use disorder COMP METABOLIC PANEL Routine 01/12/2024 12:06 PM ROTARY SHEAR OPERATOR Alcohol use disorder LC ACUTE HEPATITIS Routine 01/12/2024 12 :06 PM ROTARY SHEAR OPERATOR Screen for STD (sexually transmitted disease) ANTI HBC Routine 01/12/2024 12:06 PM ROTARY SHEAR OPERATOR Screen for STD (sexually transmitted disease) HSV TYPE SPEC IGG SIMONE Routine 01/12/2024 12:06 PM ROTARY SHEAR OPERATOR Screen for STD (sexually transmitted disease) TREPONEMA PALLIDUM Routine 01/12/2024 12 :06 PM ROTARY SHEAR OPERATOR Screen for STD (sexually transmitted disease) ANTI HIV 1/2 Routine 01/12/2024 12:06 PM ROTARY SHEAR OPERATOR Screen for STD (sexually transmitted disease) from Last 3 Months Results * TRICHOMONAS AMPLIFIED PROBE (01/12/2024 12:19 PM ROTARY SHEAR OPERATOR) TRICHOMONAS AMPLIFIED PROBE Negative 01/15/2024 12:20 PM ROTARY SHEAR OPERATOR [facility] Other URINE SPECIMEN / Unknown Non-Blood / Unknown 01/12/2024 12:19 PM ROTARY SHEAR OPERATOR 01/12/2024 12:19 PM ROTARY SHEAR OPERATOR Katerina PINA MICROBIOLOGY [facility] [address] [place] [address] * GC CHLAMYDIA TRACH PROBE (01/12/2024 12:19 PM ROTARY SHEAR OPERATOR) CHLAMYDIA PROBE Negative 1:27 AM ROTARY SHEAR OPERATOR [facility] N GONORRHOEAE PROBE Negative 01/13/2024 1:27 AM ROTARY SHEAR OPERATOR [facility] Other URINE SPECIMEN / Unknown Non-Blood / Unknown 01/12/2024 12:19 PM ROTARY SHEAR OPERATOR 01/12/2024 12:19 PM ROTARY SHEAR OPERATOR Katerina PINA MICROBIOLOGY Performing Organization Address City/[facility]/ZIP Co de Phone Number [facility] [address] [place] [address], * LC ACUTE HEPATITIS (01/12/2024 12:06 PM ROTARY SHEAR OPERATOR) Hep A IgM Ab Negative Negative 01/15/2024 11:10 AM ROTARY SHEAR OPERATOR [facility] Hep B Surf Ag Scr Negative Negative 01/15/2024 11:10 AM ROTARY SHEAR OPERATOR [facility] Hep B Core IgM Ab Negative Negative 01/15/2024 11:10 AM ROTARY SHEAR OPERATOR [facility] HCV Ab Non Reactive Non Reactive 01/15/2024 11:10 AM [facility] Blood BLOOD SPECIMEN / Unknown Venipuncture / Unknown 01/12/2024 12:06 PM ROTARY SHEAR OPERATOR 01/12/2024 12:06 PM ROTARY SHEAR OPERATOR Narrative [facility] - 01/15/2024 11:10 AM ROTARY SHEAR OPERATOR Performed at: ??01 - [address] ??[id number] Camera Maker: Ayden Garcia MD, Phone: ??[phone] Katerina PINA LABORATORY Performing Organization Address [facility] Co de Phone Number [facility] [address] [place] [address], * LC HCV QN INTERP [id number] (01/12/2024 12:06 PM ROTARY SHEAR OPERATOR) HCV Neg Interp Comment 01/15/2024 11:10 AM ROTARY SHEAR OPERATOR [facility] Comment: Not infected with HCV unless early or acute infection is suspected (which may be delayed in an immunocompromised individual), or other evidence exists to indicate HCV infection. Blood BLOOD SPECIMEN / Unknown Venipuncture / Unknown 01/12/2024 12:06 PM ROTARY SHEAR OPERATOR 01/12/2024 12:06 PM ROTARY SHEAR OPERATOR Narrative [facility] - 01/15/2024 11:10 AM ROTARY SHEAR OPERATOR Performed at: ??01 - [facility] [address] [place], [place] ??[id number] Camera Maker: Ayden Garcia MD, Phone: ??[phone] Katerina PINA LABORATORY Performing Organization Address [facility] de Phone Number [facility] [address] [place] [address], * TREPONEMA PALLIDUM (01/12/2024 12:06 PM ROTARY SHEAR OPERATOR) TREPONEMA PALLIDUM Non-Reacti ve Non-Reacti ve 01/12/2024 10:34 PM ROTARY SHEAR OPERATOR [facility] Blood BLOOD SPECIMEN / Unknown Venipuncture / Unknown 01/12/2024 12:06 PM ROTARY SHEAR OPERATOR 01/12/2024 12:06 PM ROTARY SHEAR OPERATOR Katerina PINA SEND OUTS Performing Organization Address City/[facility]/ZIP Co de Phone Number [facility] [address] [place] [address], * (ABNORMAL) HSV TYPE SPEC IGG SIMONE (01/12/2024 12:06 PM ROTARY SHEAR OPERATOR) [facility] HSV-1 IGG ANTIBODY 35.80(H) <=0.89 INDEX 01/13/2024 9:34 AM ROTARY SHE[address] [facility] HSV-2 IGG ANTIBODY 0.08 <=0.89 INDEX 01/13/2024 9:34 AM ROTARY SHEAR OPER[address] [facility] Blood BLOOD SPECIMEN / Unknown Venipuncture / Unknown 01/12/2024 12:06 PM ROTARY SHEAR OPERATOR 01/12/2024 12:06 PM ROTARY SHEAR OPERATOR Narrative [facility] - 01/13/2024 9:34 AM ROTARY SHEAR OPERATOR Interpretation: Negative <0.90 Equivocal 0.90-1.10 Positive ??>1.10 Negative indicates no antibodies detected to HSV-1 and/or HSV-2. Equivocal may indicate early infection, if appropriate, retest in 4 to 12 weeks. A Positive result indicates the presence of IgG antibodies to HSV-1 and/or HSV-2. ? Katerina PINA SEND OUTS [facility] [address] [place] [address], * ANTI HCV (01/12/2024 12:06 PM ROTARY SHEAR OPERATOR) [facility] HEPATITIS C ANTIBODY Non-Reacti ve Non-React jared 01/12/2024 10:25 PM ROTARY SHEAR OPERATOR [facility] Comment:Please note, per www .CDC.gov: If a patient is known to be at high risk of HCV infection, or is symptomatic, and the physician's suspicion of HCV infection is high, HCV RNA testing is often employed and is of diagnostic value, even after an initial negative anti-HCV test result. Blood BLOOD SPECIMEN / Unknown Venipuncture / Unknown 01/12/2024 12:06 PM ROTARY SHEAR OPERATOR 01/12/2024 12:06 PM ROTARY SHEAR OPERATOR Katerina PINA SEND OUTS Performing Organization Address [facility]/ZIP Co de Phone Number [facility] [address] [place] [address], * ANTI HBC (01/12/2024 12:06 PM ROTARY SHEAR OPERATOR) ANTI HBC Non-React jared Non-React jared 01/12/2024 10:26 PM ROTARY SHEAR OPERATOR [facility] Comment:Anti-HBc Antibodies not detected. Does not exclude the possibility of exposure to or infection with HBV. Levels of Anti-HBc may be below the cut-off in early infection. Blood BLOOD SPECIMEN / Unknown Venipuncture / Unknown 01/12/2024 12:06 PM ROTARY SHEAR OPERATOR 01/12/2024 12:06 PM ROTARY SHEAR OPERATOR Katerina PINA SEND OUTS Performing Organization Address [facility] Co de Phone Number [facility] [address] [place] [address], * ANTI HIV 1/2 (01/12/2024 12:06 PM ROTARY SHEAR OPERATOR) Pathologist [facility] HIV-1/HIV-2 SCREEN Non-Reacti ve Non-Reacti ve 01/12/2024 10:26 PM ROTARY SHEAR OPERATOR [facility] Comment:HIV-1 p24 and HIV-1/ HIV-2 Ab Not Detected. Blood BLOOD SPECIMEN / Unknown Venipuncture / Unknown 01/12/2024 12:06 PM ROTARY SHEAR OPERATOR 01/12/2024 12:06 PM ROTARY SHEAR OPERATOR Katerina PINA SEND OUTS Performing Organization Address City/[facility] Co de Phone Number [facility] [address] [place] [address], * (ABNORMAL) GAMMA GT (01/12/2024 12:06 PM ROTARY SHEAR OPERATOR) Pathologist [facility] GAMMA GT 81(H) 8 - 61 IU/L 01/12/2024 10:05 PM ROTARY SHEAR OPERATOR [facility] Blood BLOOD SPECIMEN / Unknown Venipuncture / Unknown 01/12/2024 12:06 PM ROTARY SHEAR OPERATOR 01/12/2024 12:06 PM [facility] Katerina PINA [facility]Y [facility] [address] [place] [address], * (ABNORMAL) COMP METABOLIC PANEL (01/12/2024 12:06 PM [facility]) SODIUM 141 136 - 145 mmol/L 01/12/2024 10:05 PM [facility] POTASSIUM 4.1 3.5 - 5.1 mmol/L 01/12/2024 10:05 PM [facility] CHLORIDE 102 98 - 107 mmol/L 01/12/2024 10:05 PM [facility] CO2,TOTAL 25 22 - 29 mmol/L 01/12/2024 10:05 PM [facility] ANION GAP 14 5 - 18 01/12/2024 10:05 PM [facility] GLUCOSE 126(H) 70 - 99 mg/dL 01/12/2024 10:05 PM [facility] CALCIUM 9.9 8.6 - 10.0 mg/dL 01/12/2024 10:05 PM [facility] BUN 12 6 - 20 mg/dL 01/12/2024 10:05 PM [facility] CREATININE 1.00 0.70 - 1.20 mg/dL 01/12/2024 10:05 PM [facility] BUN/CREAT RATIO 12 10 - 20 10:05 PM [facility] eGFR >90 >90 mL/min/1.7 3m2 01/12/2024 10:05 PM [facility] Comment:As of 2022, eG FR is calculated by the CKD-EPI creatinine equation without race adjustment. ??eGFR can be influenced by muscle mass, exercise, and diet. ??The reported eGFR is an estimation only and is only applicable if the renal function is stable. ALBUMIN 5.0(H) 4.0 - 4.9 g/dL 01/12/2024 10:05 PM [facility] PROTEIN,TOTAL 7.7 6.0 - 8.0 g/dL 01/12/2024 10:05 PM [facility] BILIRUBIN,TOTAL 0.3 0.0 - 1.2 mg/dL 01/12/2024 10:05 PM ROTARY SHEAR OPERATOR [facility] ALK PHOSPHATASE 79 40 - 129 IU/L 01/12/2024 10:05 PM [facility] ALT (SGPT) 41 10 - 50 IU/L 01/12/2024 10:05 PM [facility] AST (SGOT) 29 10 - 50 IU/L 01/12/2024 10:05 PM [facility] Blood BLOOD SPECIMEN / Unknown Venipuncture / Unknown 01/12/2024 12:06 PM ROTARY SHEAR OPERATOR 01/12/2024 12:06 PM ROTARY SHEAR OPERATOR Katerina PINA CHEMISTRY [facility] [address] [place] [address], from Last 3 Months Advance Directives * Full Code (Latest Code Status on File) Date Activated Date Inactivated Comments 01/04/2011 9:55 PM 01/05/2011 5:34 PM Care Teams Monument Letterer Relationship Specialty [place] [address] [place] [address] PCP - General Physician Post Production Assistant 01/12/24
--- OUTSIDE RECORDS SUMMARY | 2024-04-08 14:28 | XMS_ITS | Referral Summary ---
Author Organization [place] Address [facility] [place] [address] Care Team Providers Care Architectural Designer Name Role Phone [facility] Primary Care Provider Allergies No known active [...] and gender (Zuleyma et al., NEJM, DOI: 10.1056/[id number]) Blood STRUCTURE OF RIGHT UPPER LIMB / Unknown Venipuncture / Unknown 06/07/2022 4:39 PM CDT 06/07/2022 4:43 PM CDT Brad Cummings MD LAB - BLOOD ORDER ANA RH LABORATORY [facility] [address] Lab (1st floor, no room number) [place] [address], [facility] [phone] from Last 3 Months or Most Recently Relevant to Health Maintenance Care Teams Architectural Designer Relationship Specialty Start Date End Date Clinic - [address] [address] PCP - General Internal Medicine 12/18/19
--- OUTSIDE RECORDS SUMMARY | 2024-04-08 14:28 | XMS_ITS | Encounter Summary ---
Author Organization [place] Address [address] [place] [address]. [place] [address] Care Team Providers Care Acetylene Cylinder Packing Mixer Name Role Phone [facility] Primary Care Provider Encounter Details [...] on filedocumented in this encounter Care Teams Acetylene Cylinder Packing Mixer Relationship Specialty Start Date End Date [facility] [address] [place] [address] PCP - General Internal Medicine 12/18/19 documented as of this encounter
--- OUTSIDE RECORDS SUMMARY | 2024-04-08 14:28 | XMS_ITS | Clinical Summary ---
Author Organization [place] Address [address] [place] [address] Care Team Providers Care Infrastructure Tech Name Role Phone [facility] Primary Care Provider Allergies No known active [...] and gender (Zuleyma et al., NEJ, DOI: 10.1056/[id number]) Blood STRUCTURE OF RIGHT UPPER LIMB / Unknown Venipuncture / Unknown 06/07/2022 4:39 PM CDT 06/07/2022 4:43 PM CDT Brad Cummings MD LAB - BLOOD ORDER ANA LABORATORY [facility] Acute Care Lab [address] [facility] Lab (1st floor, no room number) [place] [address], [facility] [phone] from Last 3 Months or Most Recently Relevant to Health Maintenance Care Teams Infrastructure Tech Relationship Specialty Start Date End Date Clinic - [facility] [address] [place] [address] PCP - General Internal Medicine 12/18/19
[2024-04-08] MEDS: LORazepam 2 MG/ML inj 1 MG IVP ×2 (14:32→15:56)
[2024-04-08 14:38] LABS: Basophils Absolute Auto 0.03 K/uL (0.00-0.30); Basophils Percent Auto 0.5 % (0.0-3.0); Eosinophils Absolute Auto 0.07 K/uL (0.00-0.50); Eosinophils Percent Auto 1.1 % (0.0-7.0); Hematocrit 42.7 % (37.0-53.0); Hemoglobin* 14.7 gm/dL (13.5-17.5); Immature Granulocytes Abs Auto 0.08 K/uL (0.00-0.30); Immature Granulocytes Pct Auto 1.2 %; Lymphocytes Percent Auto 13.3 % (20-44); Mean Corpuscular HGB Conc 34 gm/dL (32-36); Mean Corpuscular Hemoglobin 31 pg (26-34); Mean Corpuscular Volume 89 fL (80-100); Monocytes Percent Auto 7.8 % (0.0-11.0); Neutrophils Percent Auto 76.1 % (42.0-72.0); Platelet Count* 229 K/uL (140-440); RDW Coefficient of Variation % 11.8 % (11.5-15.5); White Blood Count* 6.52 K/uL (4.50-11.00)
[2024-04-08 14:41] LABS: Slide Review Reflex No
[2024-04-08 15:01] LABS: Albumin* 5.2 g/dL (3.3-5.0); Chloride* 101 mmol/L (96-114)
[2024-04-08 15:02] LABS: Potassium* 3.5 mmol/L (3.6-5.1); Sodium* 138 mmol/L (135-149)
[2024-04-08 15:04] LABS: Anion Gap 11 mEq/L (7-15); Bilirubin Total* 1.6 mg/dL (0.1-1.5); Carbon Dioxide* 26 mmol/L (20-32); Creatinine* 0.8 mg/dL (0.5-1.5); Est. Creatinine Clearance* 115.19; Estimated Glomerular Filt Rate 118 ml/min
[2024-04-08 15:05] LABS: Alanine Aminotransferase* 91 U/L (4-50); Alkaline Phosphatase* 97 U/L (40-150); Aspartate Amino Transferase* 94 U/L (12-35); Blood Urea Nitrogen* 14 mg/dL (5-24); Calcium* 9.4 mg/dL (8.4-10.6); Glucose* 122 mg/dL (60-115); Lipase* 193 U/L (23-300); Total Protein* 8.4 g/dL (6.0-8.3)
[2024-04-08 15:07] LABS: Ethanol* < 0.01 % (0.01-0.03)
[2024-04-08] MEDS: GI COCKTAIL (VISC LIDO/ANTACID) 30 ML PO (16:02)
== END 2024-04-08 17:43 | disposition home or self-care (01) ==
PROVIDERS: Emergency Provider Emergency Medicine
DX: F10.129 Alcohol abuse with intoxication, unspecified (principal); R10.13 Epigastric pain
CPT/HCPCS: 36415; 80053; 82077; 83690; 85025; 93005; 96374; 96375; 96376; 99283; 99284; A9270; J2060; J3411; J7030

== ENCOUNTER 2024-05-16 13:10 | Emergency (ER) | payer MEDICARE, SELFPAY ==
[2024-05-16] VITALS (7 sets, daily range): BP systolic 138–163; BP diastolic 97–104; PULSE 73–100; RESP 24–28; TEMP 36.9; O2SAT 100
--- OUTSIDE RECORDS SUMMARY | 2024-05-16 13:15 | XMS_ITS | Referral Summary ---
Author Organization [place] Address [facility] [place] [address] Care Team Providers Care Airplane Engineer Name Role Phone [facility] Primary Care Provider Allergies No known active [...] and gender (Zuleyma et al., NEJM, DOI: 10.1056/[id number]) Blood STRUCTURE OF RIGHT UPPER LIMB / Unknown Venipuncture / Unknown 06/07/2022 4:39 PM CDT 06/07/2022 4:43 PM CDT Brad Cummings MD LAB - BLOOD ORDER ANA RH LABORATORY [facility] Acute [facility] Lab [address] Lab (1st floor, no room number) [place] [address], [facility] [phone] from Last 3 Months or Most Recently Relevant to Health Maintenance Care Teams Airplane Engineer Relationship Specialty Start Date End Date Clinic - [address] [address] PCP - General Internal Medicine 12/18/19
--- OUTSIDE RECORDS SUMMARY | 2024-05-16 13:15 | XMS_ITS | Patient Health Record ---
Author Organization [facility] - Primary Address [address] [place] [address] Care Team Providers Care Skiagrapher Name Role Phone Different, PCP Primary Care [...] chronic (F43.12) Active confirmed Posttraumatic stress disorder ([id number]) PLAN OF TREATMENT No Information Insurance Providers Payer Name Payer Address Payer Phone Subscriber Number Group Number Insured Name Patient Relationship to Insured Coverage Start Date Coverage End Date [facility] [address] [place] [address] [phone] [id number] Ag Dykes Self - patient is the insured [facility] [address] [place] [address] [id number] Ag Dykes Self - patient is the insured MEDICAL (GENERAL) HISTORY Medical History History ICD Code PTSD Surgical History Surgery Date(Month/Year) collar bone Rt Hospitalization History Reason Date(Month/Year) ER with chest pain [place] 03/2020
--- OUTSIDE RECORDS SUMMARY | 2024-05-16 13:15 | XMS_ITS | Clinical Summary ---
Author Organization [place] Address [address] [place] [address] Care Team Providers Care Logistics Analyst Name Role Phone [facility] Primary Care Provider Allergies No known active [...] Tdap) 01/06/2021 01/06/2011 COVID-19 Vaccine (1 - 2022- season) 2023 PHQ-2 (once per calendar year) 2023 INFLUENZA VACCINE (#1) 2024 GLUCOSE 06/07/2025 06/07/2022, 08/09, 06/18/2021, Additional [...] and gender (Zuleyma et al., NEJ, DOI: 10.1056/[id number]) Blood STRUCTURE OF RIGHT UPPER LIMB / Unknown Venipuncture / Unknown 06/07/2022 4:39 PM CDT 06/07/2022 4:43 PM CDT Brad Cummings MD LAB - BLOOD ORDER ANA LABORATORY [facility] Acute Care Lab [address] [facility] Lab (1st floor, no room number) [place] [address], [facility] [phone] from Last 3 Months or Most Recently Relevant to Health Maintenance Care Teams Logistics Analyst Relationship Specialty Start Date End Date Clinic - [facility] [address] [place] [address] PCP - General Internal Medicine 12/18/19
--- OUTSIDE RECORDS SUMMARY | 2024-05-16 13:15 | XMS_ITS | Clinical Summary ---
Author Organization [facility] Address [place], [place] [address] Care Team Providers Care Case Monitor Name Role Phone Katerina Jules Primary Care Provider Allergies No known active allergies Medications No known medications Active Problems Problem Noted Date Diagnosed Date KATHERINE (generalized anxiety disorder) 04/21/2024 Alcohol use disorder 01/12/2024 Resolved Problems Problem Noted Date Diagnosed Date Resolved Date Unspecified part of closed f racture of clavicle 01/05/2011 01/12/2024 Encounters Date Type Department Care Team Description 04/21/2024 10:10 AM CDT Office Visit [facility] [address] [place] [address] Katerina Jules PA Anxiety 04/21/2024 Travel from Last 3 Months Immunizations Name Administration Dates Next Due Tdap 01/06/2011 Social History Tobacco Use Types Packs/Day Years Used Date Smoking Tobacco: Every Day Cigarettes 0.5 11.5 Started: 2012 Smokeless Tobacco: Never Tobacco Cessation:Ready to Q uit: Not Asked; Counseling Given: Not Answered Alcohol Use Standard Drinks/Week Comments Yes 0 (1 standard drink = 0.6 oz pur e alcohol) pint weekly PHQ-2 Answer Date Recorded PHQ-2 TOTAL SCORE 0 04/21/2024 Social Connections Answer Date Recorded Frequency of [...] Sign Reading Time Taken Comments Blood Pressure 132/86 04/21/2024 10:15 AM CDT Pulse 92 04/21/2024 10:15 AM CDT Temperature 36.4 ??C (97.6 ??F) 12/03/2023 10:[address] Respiratory Rate 31 12/03/2023 11:30 PM TWISTER HAND Oxygen Saturation 99% 04/21/2024 10:15 AM CDT Inhaled Oxygen Concentration - - Weight 87.1 kg (192 lb) 04/21/2024 10:15 AM CDT Height 180.3 cm (5' 11) 01/12/2024 11:34 AM TWISTER HAND Body Mass Index 26.78 01/12/2024 11:34 AM TWISTER HAND Plan of Treatment Upcoming Encounters Date Type Department Care Team (Late st Contact Info) Description 05/25/2024 3:15 PM CDT Office Visit [facility] [address] [place], [place] [id number] [place] [address] [place] [address] Health Maintenance Due Date Last Done Comments Pneumococcal series for age 6-64 (1 of 2 - PCV) 01/17/1994 Tetanus booster 01/06/2021 01/06/2011 Lipids for age 35-44 01/17/2023 COVID-19 vaccine series ( - season) 2023 Influenza for age 9-49 07/10/2024 BMI (ht and wt on same day) for age 18+ 01/11/2025 01/12/2024 Depression screening for age 12+ 04/21/2025 04/21/2024, 01/14/2024, 01/12/2024 Tdap Completed 01/06/2011 HIV for age 15-65 Completed 01/12/2024 Hepatitis C screening for age 18-79 Completed 01/11 Procedures Procedure Name Priority Date/Time Associated Diagnosis Comments ANTI HIV 1/2 Routine 01/12/2024 12:06 PM TWISTER HAND Screen for STD (sexually transmitted disease) ANTI HCV Routine 01/12/2024 12:06 PM TWISTER HAND Need for hepatitis C screening test from Last 3 Months or Most Recently Relevant to Health Maintenance Results * ANTI HCV (01/12/2024 12:06 PM TWISTER HAND) HEPATITIS C ANTIBODY Non-Reacti ve Non-React jared 01/12/2024 10:25 PM TWISTER HAND [facility] Comment:Please note, per www .CDC.gov: If a patient is known to be at high risk of HCV infection, or is symptomatic, and the physician's suspicion of HCV infection is high, HCV RNA testing is often employed and is of diagnostic value, even after an initial negative anti-HCV test result. Blood BLOOD SPECIMEN / Unknown Venipuncture / Unknown 01/12/2024 12:06 PM TWISTER HAND 01/12/2024 12:06 PM TWISTER HAND Katerina PINA SEND OUTS Performing Organization Address City/[facility] Co de Phone Number [facility] [address] [place] [address], * ANTI HIV 1/2 (01/12/2024 12:06 PM TWISTER HAND) HIV-1/HIV-2 SCREEN Non-Reacti ve Non-Reacti ve 01/12/2024 10:26 PM TWISTER HAND [facility] [employer] [facility] Comment:HIV-1 p24 and HIV-1/ HIV-2 Ab Not Detected. Blood BLOOD SPECIMEN / Unknown Venipuncture / Unknown 01/12/2024 12:06 PM TWISTER HAND 01/12/2024 12:06 PM TWISTER HAND Katerina PINA SEND OUTS Performing Organization Address City/[facility]/ZIP Co de Phone Number [facility] [address] [place] [address], from Last 3 Months or Most Recently Relevant to Health Maintenance Advance Directives * Full Code (Latest Code Status on File) Date Activated Date Inactivated Comments 01/04/2011 9:55 PM 01/05/2011 5:34 PM Care Teams Case Monitor Relationship Specialty [place] [address] [place] [address] PCP - General Physician Disc Recordist 01/12/24
--- OUTSIDE RECORDS SUMMARY | 2024-05-16 13:15 | XMS_ITS | Encounter Summary ---
Author Organization [place] Address [address] [place] [address]. [place] [address] Care Team Providers Care Spinning Machine Operator Name Role Phone [facility] Primary Care Provider Encounter Details Date [...] on filedocumented in this encounter Care Teams Spinning Machine Operator Relationship Specialty Start Date End Date [facility] [address] [place] [address] PCP - General Internal Medicine 12/18/19 documented as of this encounter
--- NOTE | 2024-05-16 15:03 | ED_ITS ---
HPI - General Adult General Time Seen by Provider: 15:03 Date Seen: 05/16/24 Chief complaint: Anxiety Stated complaint: panic attack, withdrawl Time Seen by Provider: 05/16/24 14:31 Source: patient, RN notes reviewed and old records reviewed Mode of arrival: ambulatory Limitations: no limitations History of Present Illness HPI narrative: This 34-year-old male is ambulatory into the ED with concern of anxiety and withdrawal. He states he had his last drink about 3-4 hours before. He is supposed to be leaving for [place] tomorrow. His grandparents own 2 islands up there, they are going up there to spread his dad's ashes. He has been to [facility] and [facility] before, is not interested in that at this time. He is aware that he needs to go to chemical dependency treatment for alcohol, plans on working on that after he comes back from [place] in a week. He notes that he has anxiety, feels like he just can not breathe, he states he gets that in his head and just can not stop it. He is trying to drink can eat, has had some nausea, is not vomiting, no abdominal pain at this time. He has never been through treatment before. He told nursing staff that he last drank vodka about an hour ago. He is wondering if I can give him anxiety medicines to get him through the next week. He told nursing staff that he has been drinking heavily for the last 5-7 days. He states he has been hospitalized for withdrawal before, was about a month ago here per his report. Patient was not technically hospitalized here but has been seen multiple times recently in the ER for alcohol-related complications, he was in on March 12, March 13 and April 08. Patient and I have reviewed that there limits to the amount of Ativan that I am willing to send him with outpatient. We certainly can give him IV fluids as he is requesting, check labs. I will give him antianxiety medicine here. Will also do some anti nausea medicine for him. Patient does request some water as I leave the room. No known withdrawal seizures noted prior. Related Data Previous Rx's ?Medication ?Instructions ?Recorded hydroxyzine HCl 25 mg tablet 25 mg PO QID PRN #30 tabs 05/16/24 lorazepam 1 mg tablet (Ativan) 1 mg PO TID PRN #6 tabs 05/16/24 ondansetron 4 mg disintegrating 4 mg PO Q6H PRN nausea and 05/16/24 tablet vomiting #20 tabs Allergies Allergy/AdvReac Type Severity Reaction Status Date / Time No Known Drug Allergies Allergy Verified 04/08/24 13:59 Review of Systems Status of ROS: Reports: 6 or more systems reviewed and unremarkable except as noted in History and below PFSH PFS Social History Smoking Status: Current every day smoker What tobacco products do you use: cigarettes Smoking packs per day: 1 Smoking cigarettes per day: 20.0 Years smoked: 6 Smoking pack-years: 6.00 Do you use any of these nicotine containing products: None Second hand tobacco smoke exposure: Yes How often do you have a drink containing alcohol: 4 or more times a week How many standard drinks containing alcohol do you have on a typical day: 10 or more How often do you have six or more drinks on one occasion: Daily or almost daily AUDIT-C Alcohol total score: 12 Non-prescribed substance use: marijuana (any form) service: No Exam Const: Vital Signs, click to edit/add: Vital Signs - 24 hr 05/16/24 13:22 05/16/24 14:00 05/16/24 15:30 Temperature 98.4 F Pulse Rate [Pulse Oximeter] 87 73 Respiratory Rate 28 H 28 H Blood Pressure [Ri ght Upper Arm] 163/97 H 141/104 H Pulse Oximetry 100 100 100 Oxygen Delivery Me thod Room Air Room Air Room Air 05/16/24 16:00 Temperature Pulse Rate [Pulse Oximeter] Respiratory Rate Blood Pressure [Ri ght Upper Arm] Pulse Oximetry 100 Oxygen Delivery Me thod This 34-year-old male is lying in the bed in exam room 6. He is alert, interactive, no apparent distress. Speech is normal. Pupils equal round, sclera clear, conjugate gaze. Oropharynx no mucosa, glistening membranes noted. Neck supple, no adenopathy. Lungs are clear, good air entry, no wheezing or crackles. CV regular rate and rhythm, no murmur, normal S1-S2, no S3-S4. Abdomen soft, nontender, nondistended, no organomegaly or masses noted. He was ambulatory into the ED of his own accord. He is conversive and appropriate, certainly does not seem clinically intoxicated at all. I note no tremors. Documenting provider has reviewed patient's vital signs: yes Course Course ED Course: This 34-year-old male with alcohol dependence is coming in with symptoms of withdrawal. We will check full complement of labs. Will start an IV and give him IV fluids. I will give him 1 mg oral Ativan, there is a significant shortage of IV, will attempt to treat his anxiety with oral dosing at this time. Will give him 4 mg IV Zofran. Will double check a troponin and EKG for his chest symptoms. He is definitely aware that anxiety is part of the withdrawal process, have reassured him that he is doing well at this time. His blood pressure is mildly elevated but otherwise there are no other physical stigmata or hemodynamic changes that are concerning at this time. Continue to monitor. I do not feel that any imaging is necessary at this time but will reconsider based on labs or change in patient's clinical status. Reevaluation(s) Time of Reevaluation #1: 16:33 Reevaluation #1: Reviewed with patient that his labs are certainly reassuring. Just minimal elevation of his AST. He has been drinking significant fluids with water here and keeping it down, did eat most of a sandwich. He states he is still feeling anxious. Did review with him that he certainly may, this can be part of the process. We did discuss the risk of benzodiazepine use and alcohol use concurrently. This can increase the risk of sedation respiratory depression and potentially bleed to . Thus, I do not send patient is with any significant amount benzodiazepines, and willing to send a few. We discussed Vistaril use, Zofran use which I can send him bit more of. Plan is to discharge to home at this time. Vital Signs Vital signs: Initial Vital Signs Temperature 98.4 F 05/16/24 13:22 Temperature Source Temporal Artery Scan 05/16/24 13:22 Pulse Rate 87 05/16/24 13:22 Respiratory Rate 28 H 05/16/24 13:22 Blood Pressure 163/97 H 05/16/24 13:22 Blood Pressure Mean 119 H 05/16/24 13:22 Blood Pressure Position Sitting 05/16/24 13:22 Pulse Oximetry 100 05/16/24 13:22 Oxygen Delivery Method Room Air 05/16/24 13:22 Vital Signs Temperature 98.4 F 05/16/24 13:22 Pulse Rate 87 05/16/24 13:22 Respiratory Rate 28 H 05/16/24 13:22 Blood Pressure 163/97 H 05/16/24 13:22 Pulse Oximetry 100 05/16/24 13:22 Oxygen Delivery Method Room Air 05/16/24 13:22 Temperature 98.4 F 05/16/24 13:22 Pulse Rate 73 05/16/24 15:30 Respiratory Rate 28 H 05/16/24 15:30 Blood Pressure 141/104 H 05/16/24 15:30 Pulse Oximetry 100 05/16/24 16:00 Oxygen Delivery Method Room Air 05/16/24 15:30 Medications Administered Medications: Discontinued Medications Generic Name Dose Route Start Last Admin Trade Name Freq PRN Reason Stop Dose Admin Sodium Chloride 1,000 mls @ 1,000 mls/hr 05/16/24 15:16 05/16/24 15:44 0.9 % Sodium Chloride 1000 Ml IV 05/16/24 16:15 1,000 mls/hr .Q1H LETI Administration Lorazepam 1 mg 05/16/24 15:15 05/16/24 15:43 Lorazepam 1 Mg Tablet PO 05/16/24 15:16 1 mg ONCE ONE Administration Medical Decision Making Lab Data Lab results reviewed: Yes I reviewed the patient's lab results Labs: Lab Results 05/16/24 Range/Units 15:30 WBC 5.44 (4.50-11.00) K/uL RBC 5.17 (4.30-5.90) m/uL Hgb 15.9 (13.5-17.5) gm/dL Hct 45.7 (37.0-53.0) % MCV 88 (80-100) fL MCH 31 (26-34) pg MCHC 35 (32-36) gm/dL RDW Coeff of Magdalena 11.9 (11.5-15.5) % Plt Count 280 (140-440) K/uL Neut % (Auto) 67.0 (42.0-72.0) % Lymph % (Auto) 25.7 (20-44) % [place] % (Auto) 6.3 (0.0-11.0) % Eos % (Auto) 0.2 (0.0-7.0) % Baso % (Auto) 0.6 (0.0-3.0) % Neut # (Auto) 3.65 (1.7-7.0) K/uL Lymph # (Auto) 1.40 (0.90-2.90) K/uL [place] # (Auto) 0.30 (0.00-0.90) K/UL Eos # (Auto) 0.01 (0.00-0.50) K/uL Baso # (Auto) 0.03 (0.00-0.30) K/uL Abs Immat Gran (auto) 0.01 (0.00-0.30) K/uL Imm/Tot Granulo (auto) 0.2 % INR 0.96 (0.91-1.10) APTT 26 (23-33) Seconds Sodium 141 (135-149) mmol/L Potassium 3.7 (3.6-5.1) mmol/L Chloride 104 (96-114) mmol/L Carbon Dioxide 23 (20-32) mmol/L Anion Gap 14 (7-15) mEq/L BUN 11 (5-24) mg/dL Creatinine 0.9 (0.5-1.5) mg/dL Estimated GFR 114 ml/min Glucose 96 (60-115) mg/dL Lactate 3.1 H (0.5-1.9) mmol/L Calcium 9.2 (8.4-10.6) mg/dL Magnesium 2.0 (1.5-2.6) mg/dL Total Bilirubin 0.4 (0.1-1.5) mg/dL Direct Bilirubin 0.2 (0.0-0.5) mg/dL AST 42 H (12-35) U/L ALT 40 (4-50) U/L Alkaline Phosphatase 93 (40-150) U/L Troponin I < 0.01 L (0.01-0.04) ng/mL Total Protein 7.7 (6.0-8.3) g/dL Albumin 4.8 (3.3-5.0) g/dL Lipase 151 (23-300) U/L Urine Opiates Screen Negative (Negative) Ur Oxycodone Screen Negative (Negative) Urine Methadone Screen Negative (Negative) Ur Barbiturates Screen Negative (Negative) U Tricyclic Antidepress Negative (Negative) Ur Phencyclidine Scrn Negative (Negative) Ur Amphetamines Screen Negative (Negative) U Methamphetamines Scrn Negative (Negative) U Benzodiazepines Scrn Negative (Negative) Urine Cocaine Screen Negative (Negative) U Marijuana (THC) Screen POSITIVE A (Negative) Ur Drug Screen Comment See Note Ethyl Alcohol 0.17 H (0.01-0.03) % ECG Data Attestation: I personally reviewed and interpreted this ECG as follows: (Normal sinus rhythm, 71 beats per minute. No acute ischemic change, no infarct.) Prior ECG tracings: available for review Discharge Plan Discharge Clinical Impression: Acute anxiety, Alcohol use disorder Patient Disposition: Home, Self-Care Condition: Stable Instructions: Alcohol Withdrawal (ED), Anxiety (ED), Alcohol Use Disorder (ED) Additional Instructions: You can use the Ativan for severe anxiety, you cannot drink on this. Prescriptions for Zofran and Vistaril for symptom control have also been sent in. Zofran is for nausea, this rale can help with both nausea and anxiety. Highly encourage you to seek further evaluation for your alcohol use, consider treatment. Activity Level: Activity as Tolerated Discharge Diet: Regular Prescriptions: New lorazepam [Ativan] 1 mg tablet 1 mg PO TID PRNQty: 6 0RF hydroxyzine HCl 25 mg tablet 25 mg PO QID PRNQty: 30 0RF ondansetron 4 mg tablet,disintegrating 4 mg PO Q6H PRN (Reason: nausea and vomiting) Qty: 20 0RF Follow Up/Referrals: Provider,Not a Local [Primary Care Provider] - Stand Alone Forms: [employer] Info Instructions
--- OUTSIDE RECORDS SUMMARY | 2024-05-16 15:19 | XMS_ITS | Referral Summary ---
Author Organization [place] Address formerly [facility] [place] [address] Care Team Providers Care Plastic Duplicator Name Role Phone [facility] Primary Care Provider Allergies No known active [...] and gender (Zuleyma et al., NEJM, DOI: [id number]/[id number]) Blood STRUCTURE OF RIGHT UPPER LIMB / Unknown Venipuncture / Unknown 06/07/2022 4:39 PM CDT 06/07/2022 4:43 PM CDT Brad Cummings MD LAB - BLOOD ORDER ANA RH LABORATORY [facility] Acute Care Lab [address] Lab (1st floor, no room number) [place] [address], [facility] [phone] from Last 3 Months or Most Recently Relevant to Health Maintenance Care Teams Plastic Duplicator Relationship Specialty Start Date End Date Clinic - [address] [address] PCP - General Internal Medicine 12/18/19
--- OUTSIDE RECORDS SUMMARY | 2024-05-16 15:19 | XMS_ITS | Clinical Summary ---
Author Organization [place] Address [address] [place] [address] Care Team Providers Care Enterprise Project Manager Name Role Phone [facility] Primary Care Provider Allergies No known [...] and gender (Zuleyma et al., NEJ, DOI: 10.1056/[id number]) Blood STRUCTURE OF RIGHT UPPER LIMB / Unknown Venipuncture / Unknown 06/07/2022 4:39 PM CDT 06/07/2022 4:43 PM CDT Brad Cummings MD LAB - BLOOD ORDER ANA LABORATORY [facility] Acute Care Lab [address] [facility] Lab (1st floor, no room number) [place] [address], [facility] [phone] from Last 3 Months or Most Recently Relevant to Health Maintenance Care Teams Enterprise Project Manager Relationship Specialty Start Date End Date Clinic - [facility] [address] [place] [address] PCP - General Internal Medicine 12/18/19
--- OUTSIDE RECORDS SUMMARY | 2024-05-16 15:19 | XMS_ITS | Encounter Summary ---
Author Organization [place] Address [address] [place] [address]. [place] [address] Care Team Providers Care Porcelain Turner Name Role Phone [facility] Primary Care Provider Encounter Details [...] on filedocumented in this encounter Care Teams Porcelain Turner Relationship Specialty Start Date End Date [facility] [address] [place] [address] PCP - General Internal Medicine 12/18/19 documented as of this encounter
--- OUTSIDE RECORDS SUMMARY | 2024-05-16 15:19 | XMS_ITS | Clinical Summary ---
Author Organization [facility] Address [place], [place] [address] Care Team Providers Care Confectionery Maker Name Role Phone Katerina Jules Primary Care [...] Description 04/21/2024 10:10 AM CDT [facility] [place] [facility] [address] [place] [address] Katerina Jules PA Anxiety 04/21/2024 Travel from [...] ST Respiratory Rate 31 12/03/2023 11:30 PM HAND ROLLER ENGRAVER Oxygen Saturation 99% 04/21/2024 10:15 AM CDT Inhaled Oxygen Concentration - - Weight 87.1 kg (192 lb) 04/21/2024 10:15 AM CDT Height 180.3 cm (5' 11) 01/12/2024 11:34 AM HAND ROLLER ENGRAVER Body Mass Index 26.78 01/12/2024 11:34 AM HAND ROLLER ENGRAVER Plan of Treatment Upcoming Encounters Date Type Department Care Team (Late st Contact Info) Description 05/25/2024 3:15 PM CDT Office [place] [facility] [address] [place], [place] [id number] [place] [address] [place] [address] Health Maintenance Due Date Last Done Comments [...] ANTI HIV 1/2 Routine 01/12/2024 12:06 PM HAND ROLLER ENGRAVER Screen for STD (sexually transmitted disease) ANTI HCV Routine 01/12/2024 12:06 PM HAND ROLLER ENGRAVER Need for hepatitis C screening test from Last 3 Months or Most Recently Relevant to Health Maintenance Results * ANTI HCV (01/12/2024 12:06 PM HAND ROLLER ENGRAVER) HEPATITIS C ANTIBODY Non-Reacti ve Non-React jared 01/12/2024 10:25 PM HAND ROLLER ENGRAVER [facility] Comment:Please note, per www .CDC.gov: If a patient is known to be at high risk of HCV infection, or is symptomatic, and the physician's suspicion of HCV infection is high, HCV RNA testing is often employed and is of diagnostic value, even after an initial negative anti-HCV test result. Blood BLOOD SPECIMEN / Unknown Venipuncture / Unknown 01/12/2024 12:06 PM HAND ROLLER ENGRAVER 01/12/2024 12:06 PM HAND ROLLER ENGRAVER Katerina PINA SEND OUTS Performing Organization Address City/[facility] Co de Phone Number [facility] [address] [place] [address], * ANTI HIV 1/2 (01/12/2024 12:06 PM HAND ROLLER ENGRAVER) HIV-1/HIV-2 SCREEN Non-Reacti ve Non-Reacti ve 01/12/2024 10:26 PM HAND ROLLER ENGRAVER [facility] Comment:HIV-1 p24 and HIV-1/ HIV-2 Ab Not Detected. Blood BLOOD SPECIMEN / Unknown Venipuncture / Unknown 01/12/2024 12:06 PM HAND ROLLER ENGRAVER 01/12/2024 12:06 PM HAND ROLLER ENGRAVER Katerina PINA SEND OUTS Performing Organization Address City/[facility]/ZIP Co de Phone Number [facility] [address] [place] [address], from Last 3 Months or Most Recently Relevant to Health Maintenance Advance Directives * Full Code (Latest Code Status on File) Date Activated Date Inactivated Comments 01/04/2011 9:55 PM 01/05/2011 5:34 PM Care Teams Confectionery Maker Relationship Specialty Start [place] [address] [place] [address] PCP - General Physician Expansion Envelope Maker Hand 01/12/24
[2024-05-16 15:43] LABS: Lactate* 3.1 mmol/L (0.5-1.9)
[2024-05-16] MEDS: LORazepam 1 MG TABLET PO (15:43)
[2024-05-16] MEDS: 0.9 % SODIUM CHLORIDE 1000 ml 1,000 ML IV (15:44)
[2024-05-16 15:47] LABS: Basophils Absolute Auto 0.03 K/uL (0.00-0.30); Basophils Percent Auto 0.6 % (0.0-3.0); Eosinophils Absolute Auto 0.01 K/uL (0.00-0.50); Eosinophils Percent Auto 0.2 % (0.0-7.0); Hematocrit 45.7 % (37.0-53.0); Hemoglobin* 15.9 gm/dL (13.5-17.5); Immature Granulocytes Abs Auto 0.01 K/uL (0.00-0.30); Immature Granulocytes Pct Auto 0.2 %; Lymphocytes Percent Auto 25.7 % (20-44); Mean Corpuscular HGB Conc 35 gm/dL (32-36); Mean Corpuscular Hemoglobin 31 pg (26-34); Mean Corpuscular Volume 88 fL (80-100); Monocytes Percent Auto 6.3 % (0.0-11.0); Neutrophils Absolute Auto 3.65 K/uL (1.7-7.0); Platelet Count* 280 K/uL (140-440); RDW Coefficient of Variation % 11.9 % (11.5-15.5); Red Blood Count 5.17 m/uL (4.30-5.90); White Blood Count* 5.44 K/uL (4.50-11.00)
[2024-05-16 15:55] LABS: Slide Review Reflex No
[2024-05-16 16:01] LABS: Albumin* 4.8 g/dL (3.3-5.0); Chloride* 104 mmol/L (96-114)
[2024-05-16 16:02] LABS: Potassium* 3.7 mmol/L (3.6-5.1); Sodium* 141 mmol/L (135-149)
[2024-05-16 16:04] LABS: Alkaline Phosphatase* 93 U/L (40-150); Anion Gap 14 mEq/L (7-15); Aspartate Amino Transferase* 42 U/L (12-35); Bilirubin Direct* 0.2 mg/dL (0.0-0.5); Bilirubin Total* 0.4 mg/dL (0.1-1.5); Blood Urea Nitrogen* 11 mg/dL (5-24); Carbon Dioxide* 23 mmol/L (20-32); Creatinine* 0.9 mg/dL (0.5-1.5); Estimated Glomerular Filt Rate 114 ml/min; Glucose* 96 mg/dL (60-115); Total Protein* 7.7 g/dL (6.0-8.3)
[2024-05-16 16:05] LABS: Alanine Aminotransferase* 40 U/L (4-50); Calcium* 9.2 mg/dL (8.4-10.6); Ethanol* 0.17 % (0.01-0.03); Lipase* 151 U/L (23-300)
[2024-05-16 16:13] LABS: Amphetamine Screen Urine Negative (Negative); Barbiturate Screen Urine Negative (Negative); Benzodiazepines Screen Urine Negative (Negative); Cannabinoid Screen Urine POSITIVE (Negative); Cocaine Screen Urine Negative (Negative); Methadone Screen Urine Negative (Negative); Methamphetamines Screen Urine Negative (Negative); Opiate Screen Urine Negative (Negative); Oxycodone Screen Urine Negative (Negative); Phencyclidine Screen Urine Negative (Negative); Tricyclic Antidepressant Urine Negative (Negative)
[2024-05-16 16:18] LABS: INR 0.96 (0.91-1.10); Prothrombin Time 13.3 Seconds
[2024-05-16 16:26] LABS: Partial Thromboplastin Time* 26 Seconds (23-33)
[2024-05-16 16:27] LABS: Troponin I* < 0.01 ng/mL (0.01-0.04)
== END 2024-05-16 16:59 | disposition home or self-care (01) ==
PROVIDERS: Emergency Provider Family Medicine
DX: F41.9 Anxiety disorder, unspecified (principal); F10.10 Alcohol abuse, uncomplicated
CPT/HCPCS: 36415; 80053; 80306; 82077; 82248; 83605; 83690; 83735; 84484; 85025; 85610; 85730; 94761; 99284; A9270; J7030

== ENCOUNTER 2024-05-25 20:18 | Emergency (ER) | payer MEDICARE, SELFPAY ==
--- OUTSIDE RECORDS SUMMARY | 2024-05-25 20:22 | XMS_ITS | Clinical Summary ---
Author Organization [facility] Address [place], [place] [address] Care Team Providers Care Automobile Designer Name Role Phone Katerina Jules Primary Care Provider Allergies No known active allergies Medications No known medications Active Problems Problem Noted Date Diagnosed Date KATHERINE (generalized anxiety disorder) 04/21/2024 Alcohol use disorder 01/12/2024 Resolved Problems Problem Noted Date Diagnosed Date Resolved Date Unspecified part of closed f racture of clavicle 01/05/2011 01/12/2024 Encounters Date Type Department Care Team Description 05/25/2024 3:15 PM CDT Office Visit [facility] [id number] [place] [address] Praveen Russell NP Error-please disregard 04/21/2024 10:10 AM CDT Office Visit [facility] [id number] [place] [address] Katerina Jules PA Anxiety 04/21/2024 Travel from [...] ST Respiratory Rate 31 12/03/2023 11:30 PM DIRECTOR OF TEACHING AND LEARNING Oxygen Saturation 99% 04/21/2024 10:15 AM CDT Inhaled Oxygen Concentration - - Weight 87.1 kg (192 lb) 04/21/2024 10:15 AM CDT Height 180.3 cm (5' 11) 01/12/2024 11:34 AM DIRECTOR OF TEACHING AND LEARNING Body Mass Index 26.78 01/12/2024 11:34 AM DIRECTOR OF TEACHING AND LEARNING Plan of Treatment Health Maintenance Due Date Last Done Comments Pneumococcal series for age 6-64 (1 of 2 - PCV) 01/17/1994 Tetanus booster 01/06/2021 01/06/2011 Lipids for age 35-44 01/17/2023 COVID-19 vaccine series ( season) 2023 Influenza for age 9-49 07/10/2024 BMI (ht and wt on same day) for age 18+ 01/11/2025 01/12/2024 Depression screening for age 12+ 04/21/2025 04/21/2024, 01/14/2024, 01/12/2024 Tdap Completed 01/06/2011 HIV for age 15-65 Completed 01/12/2024 Hepatitis C screening for age 18-79 Completed 01/11 Procedures Procedure Name Priority Date/Time Associated Diagnosis Comments ANTI HIV 1/2 Routine 01/12/2024 12:06 PM DIRECTOR OF TEACHING AND LEARNING Screen for STD (sexually transmitted disease) ANTI HCV Routine 01/12/2024 12:06 PM DIRECTOR OF TEACHING AND LEARNING Need for hepatitis C screening test from Last 3 Months or Most Recently Relevant to Health Maintenance Results * ANTI HCV (01/12/2024 12:06 PM DIRECTOR OF TEACHING AND LEARNING) HEPATITIS C ANTIBODY Non-Reacti ve Non-React jared 01/12/2024 10:25 PM DIRECTOR OF TEACHING AND LEARNING [facility] Comment:Please note, per www .CDC.gov: If a patient is known to be at high risk of HCV infection, or is symptomatic, and the physician's suspicion of HCV infection is high, HCV RNA testing is often employed and is of diagnostic value, even after an initial negative anti-HCV test result. Blood BLOOD SPECIMEN / Unknown Venipuncture / Unknown 01/12/2024 12:06 PM DIRECTOR OF TEACHING AND LEARNING 01/12/2024 12:06 PM DIRECTOR OF TEACHING AND LEARNING Katerina PINA SEND OUTS Performing Organization Address [facility] Co de Phone Number [facility] [address] [place] [address], * ANTI HIV 1/2 (01/12/2024 12:06 PM DIRECTOR OF TEACHING AND LEARNING) Pathologist [facility] HIV-1/HIV-2 SCREEN Non-Reacti ve Non-Reacti ve 01/12/2024 10:26 PM DIRECTOR OF TEACHING AND LEARNING [facility] Comment:HIV-1 p24 and HIV-1/ HIV-2 Ab Not Detected. Blood BLOOD SPECIMEN / Unknown Venipuncture / Unknown 01/12/2024 12:06 PM DIRECTOR OF TEACHING AND LEARNING 01/12/2024 12:06 PM DIRECTOR OF TEACHING AND LEARNING Katerina PINA SEND OUTS [facility] [address] [place] [address], [place] from Last 3 Months or Most Recently Relevant to Health Maintenance Advance Directives * Full Code (Latest Code Status on File) Date Activated Date Inactivated Comments 01/04/2011 9:55 PM 01/05/2011 5:34 PM Care Teams Automobile Designer Relationship Specialty Start [place] [address] [place] [address] PCP - General Physician Etl Architect 01/12/24
--- OUTSIDE RECORDS SUMMARY | 2024-05-25 20:22 | XMS_ITS | Clinical Summary ---
Author Organization [place] Address [address] [place] [address] Care Team Providers Care Ambulance Paramedic Name Role Phone [facility] Primary Care Provider Allergies No known active [...] and gender (Zuleyma et al., NEJ, DOI: 10.1056/[id number]) Blood STRUCTURE OF RIGHT UPPER LIMB / Unknown Venipuncture / Unknown 06/07/2022 4:39 PM CDT 06/07/2022 4:43 PM CDT Brad Cummings MD LAB - BLOOD ORDER ANA LABORATORY [facility] Acute Care Lab [address] [facility] Lab (1st floor, no room number) [place] [address], [facility] [phone] from Last 3 Months or Most Recently Relevant to Health Maintenance Care Teams Ambulance Paramedic Relationship Specialty Start Date End Date Clinic - [facility] [address] [place] [address] PCP - General Internal Medicine 12/18/19
--- OUTSIDE RECORDS SUMMARY | 2024-05-25 20:22 | XMS_ITS | Patient Health Record ---
Author Organization [facility] - Primary Address [address] [place] [address] Care Team Providers Care Currency Machine Operator Name Role Phone Different, PCP Primary Care [...] chronic (F43.12) Active confirmed Posttraumatic stress disorder ([id number]) PLAN OF TREATMENT No Information Insurance Providers Payer Name Payer Address Payer Phone Subscriber Number Group Number Insured Name Patient Relationship to Insured Coverage Start Date Coverage End Date [facility] [address] [place] [address] [phone] [id number] Ag Dykes Self - patient is the insured [facility] [address] [place] [address] [phone] [id number] Ag Dykes Self - patient is the insured MEDICAL (GENERAL) HISTORY Medical History History ICD Code PTSD Surgical History Surgery Date(Month/Year) collar bone Rt Hospitalization History Reason Date(Month/Year) ER with chest pain [place] 03/2020
--- OUTSIDE RECORDS SUMMARY | 2024-05-25 20:22 | XMS_ITS | Encounter Summary ---
Author Organization [place] Address [address] [place] [address]. [place] [address] Care Team Providers Care Award Machine Operator Name Role Phone [facility] Primary Care Provider Encounter Details Date Type [...] on filedocumented in this encounter Care Teams Award Machine Operator Relationship Specialty Start Date End Date [facility] [address] [place] [address] PCP - General Internal Medicine 12/18/19 documented as of this encounter
--- OUTSIDE RECORDS SUMMARY | 2024-05-25 20:22 | XMS_ITS | Referral Summary ---
Author Organization [place] Address [facility] [place] [address] Care Team Providers Care Lab Analyst Name Role Phone [facility] Primary Care Provider Allergies No known [...] and gender (Zuleyma et al., NEJM, DOI: 10.1056/[id number]) Blood STRUCTURE OF RIGHT UPPER LIMB / Unknown Venipuncture / Unknown 06/07/2022 4:39 PM CDT 06/07/2022 4:43 PM CDT Brad Cummings MD LAB - BLOOD ORDER ANA RH LABORATORY [facility] Acute Care Lab [address] Lab (1st floor, no room number) [place] [address], [facility] [phone] from Last 3 Months or Most Recently Relevant to Health Maintenance Care Teams Lab Analyst Relationship Specialty Start Date End Date Clinic - [address] [address] PCP - General Internal Medicine 12/18/19
[2024-05-25 20:31] VITALS: BP 121/86; PULSE 113; RESP 16; TEMP 36.4; O2SAT 98; BMI 25.8
--- NOTE | 2024-05-25 20:47 | ED_ITS ---
HPI - General Adult General Chief complaint: Alcohol/Intoxication Stated complaint: Severe withdrawal from alcohol Time Seen by Provider: 05/25/24 20:47 History of Present Illness HPI narrative: Patient here with dehydration and anxiety and can't quit drinking. He would like a banana bag. Mother is out in the lobby 34-year-old man presenting to the emergency depart accompanied by mother a concern of alcohol intoxication and withdrawal potential. Was recently seen he re 9 days ago with diagnosis of anxiety and alcohol use and discharged with small quantity of lorazepam hydroxyzine and Zofran. A gone to [employer] to spread his father's ashes. Has continued to drink. He is worried about dehydration. Would like of banana bag. He does express interest in detox. Mom is quite concerned about him. Is lobbying for detox. No SI or HI expressed. Related Data Previous Rx's ?Medication ?Instructions ?Recorded hydroxyzine HCl 25 mg tablet 25 mg PO QID PRN #30 tabs 05/16/24 lorazepam 1 mg tablet (Ativan) 1 mg PO TID PRN #6 tabs 05/16/24 ondansetron 4 mg disintegrating 4 mg PO Q6H PRN nausea and 05/16/24 tablet vomiting #20 tabs lorazepam 1 mg tablet 1 mg PO TID PRN anxiety #5 tabs 06/22/24 ondansetron 4 mg disintegrating 4 mg PO Q4-6H PRN nausea and 06/22/24 tablet vomiting #10 tabs Allergies Allergy/AdvReac Type Severity Reaction Status Date / Time No Known Drug Allergies Allergy Verified 04/08/24 13:59 Review of Systems Status of ROS: Reports: 6 or more systems reviewed and unremarkable except as noted in History and below PFSH PFS Social History Smoking Status: Current every day smoker What tobacco products do you use: cigarettes Smoking packs per day: 1 Smoking cigarettes per day: 20.0 Years smoked: 6 Smoking pack-years: 6.00 Do you use any of these nicotine containing products: None Second hand tobacco smoke exposure: Yes How often do you have a drink containing alcohol: 4 or more times a week How many standard drinks containing alcohol do you have on a typical day: 10 or more How often do you have six or more drinks on one occasion: Daily or almost daily AUDIT-C Alcohol total score: 12 Non-prescribed substance use: marijuana (any form) service: No Exam Narrative: Exam Narrative: Pleasant. Fully alert. Skin is warm and dry without evidence of self-harm. Breathing easily. Is tachycardic. Is not tremulous. Breathing easily. Dressed in usual fashion. Pupils are equal. Mild horizontal nystagmus. No ketones noted. Const: Vital Signs, click to edit/add: Vital Signs - 24 hr 05/25/24 20:31 Temperature 97.6 F Pulse Rate [Pulse Oximeter] 113 H Respiratory Rate 16 Blood Pressure [Ri ght Upper Arm] 121/86 Pulse Oximetry 98 Oxygen Delivery Me thod Room Air Documenting provider has reviewed patient's vital signs: yes Course Vital Signs Vital signs: Initial Vital Signs Temperature 97.6 F 05/25/24 20:31 Temperature Source Temporal Artery Scan 05/25/24 20:31 Pulse Rate 113 H 05/25/24 20:31 Respiratory Rate 16 05/25/24 20:31 Blood Pressure 121/86 05/25/24 20:31 Blood Pressure Mean 97 05/25/24 20:31 Blood Pressure Position Sitting 05/25/24 20:31 Pulse Oximetry 98 05/25/24 20:31 Oxygen Delivery Method Room Air 05/25/24 20:31 Vital Signs Temperature 97.6 F 05/25/24 20:31 Pulse Rate 113 H 05/25/24 20:31 Respiratory Rate 16 05/25/24 20:31 Blood Pressure 121/86 05/25/24 20:31 Pulse Oximetry 98 05/25/24 20:31 Oxygen Delivery Method Room Air 05/25/24 20:31 Temperature 98.1 F 05/25/24 22:22 Pulse Rate 88 05/25/24 22:22 Respiratory Rate 16 05/25/24 22:22 Blood Pressure 121/99 H 05/25/24 22:22 Pulse Oximetry 99 05/25/24 22:22 Oxygen Delivery Method Room Air 05/25/24 22:22 Medications Administered Medications: Discontinued Medications Generic Name Dose Route Start Last Admin Trade Name Freq PRN Reason Stop Dose Admin Folic Acid 1 mg/ Multivitamins 1,011.2 mls @ 1,000 mls/hr 05/25/24 21:06 05/25/24 22:55 10 ml/ Thiamine HCl 100 mg/ IV 05/25/24 22:06 Infused Sodium Chloride .Q1H1M LETI Infusion Lorazepam 2 mg 05/25/24 21:53 05/25/24 22:05 Lorazepam 1 Mg Tablet PO 05/25/24 21:54 2 mg ONCE ONE Administration Medical Decision Making MDM Narrative Medical decision making narrative: Has experienced some vomiting though I do not perceive great deal dehydration here. Does appear to have some mild withdrawal symptoms. Would offer oral dosing of lorazepam and banana bag as requested. Did obtain an alcohol level anticipation of potential detox placement. We did also look for beds available Did have a number of conversations over his course here encouraging Ag towards detox. Ag initially while expressing interest in detox ultimately is quite insistent on trying to do this himself and then would consider entering treatment. On reassessment is improved. Am prescribing some outpatient medications to help him in this effort at sobriety. Intends to stay in close contact with friends and family. Discharge with mother. See patient discharge plan for further discussion Medical Records Medical records reviewed: Yes I reviewed the patient's medical records Lab Data Lab results reviewed: Yes I reviewed the patient's lab results Labs: Lab Results 05/25/24 Range/Units 21:20 Ethyl Alcohol 0.39 H* (0.01-0.03) % Discharge Plan Discharge Clinical Impression: Alcohol intoxication, Alcohol dependence Patient Disposition: Home w/ Parent or Adult Condition: Stable Additional Instructions: stay well hydrated with water or juices. Best wishes in your efforts toward sobriety. Lorazepam and Zofran from [facility] as discussed. Prescriptions: No Action lorazepam [Ativan] 1 mg tablet 1 mg PO TID PRNQty: 6 0RF hydroxyzine HCl 25 mg tablet 25 mg PO QID PRNQty: 30 0RF ondansetron 4 mg tablet,disintegrating 4 mg PO Q6H PRN (Reason: nausea and vomiting) Qty: 20 0RF lorazepam 1 mg tablet 1 mg PO TID PRN (Reason: anxiety) Qty: 5 0RF ondansetron 4 mg tablet,disintegrating 4 mg PO Q4-6H PRN (Reason: nausea and vomiting) Qty: 10 0RF Follow Up/Referrals: Provider,Not a Local [Primary Care Provider] - Stand Alone Forms: [employer] Info Instructions
--- OUTSIDE RECORDS SUMMARY | 2024-05-25 21:46 | XMS_ITS | Encounter Summary ---
Author Organization [place] Address [address] [place] [address]. [place] [address] Care Team Providers Care Telegraph Editor Name Role Phone [facility] Primary Care Provider Encounter Details Date Type [...] on filedocumented in this encounter Care Teams Telegraph Editor Relationship Specialty Start Date End Date [facility] [address] [place] [address] PCP - General Internal Medicine 12/18/19 documented as of this encounter
--- OUTSIDE RECORDS SUMMARY | 2024-05-25 21:46 | XMS_ITS | Referral Summary ---
Author Organization [place] Address [facility] [place] [address] Care Team Providers Care Field Care Coordinator Name Role Phone [facility] Primary Care Provider Allergies No [...] and gender (Zuleyma et al., NEJM, DOI: 10.1056/[id number]) Blood STRUCTURE OF RIGHT UPPER LIMB / Unknown Venipuncture / Unknown 06/07/2022 4:39 PM CDT 06/07/2022 4:43 PM CDT Brad Cummings MD LAB - BLOOD ORDER ANA RH LABORATORY [facility] Acute Care Lab [address] Lab (1st floor, no room number) [place] [address], [facility] [phone] from Last 3 Months or Most Recently Relevant to Health Maintenance Care Teams Field Care Coordinator Relationship Specialty Start Date End Date Clinic - [address] [address] PCP - General Internal Medicine 12/18/19
--- OUTSIDE RECORDS SUMMARY | 2024-05-25 21:46 | XMS_ITS | Clinical Summary ---
Author Organization [place] Address [address] [place] [address] Care Team Providers Care Enterprise Infrastructure Architect Name Role Phone [facility] Primary Care Provider Allergies No known active [...] and gender (Zuleyma et al., NEJ, DOI: 10.1056/[id number]) Blood STRUCTURE OF RIGHT UPPER LIMB / Unknown Venipuncture / Unknown 06/07/2022 4:39 PM CDT 06/07/2022 4:43 PM CDT Brad Cummings MD LAB - BLOOD ORDER ANA LABORATORY [facility] Acute Care Lab [address] [facility] Lab (1st floor, no room number) [place] [address], [facility] [phone] from Last 3 Months or Most Recently Relevant to Health Maintenance Care Teams Enterprise Infrastructure Architect Relationship Specialty Start Date End Date Clinic - [facility] [address] [place] [address] PCP - General Internal Medicine 12/18/19
--- OUTSIDE RECORDS SUMMARY | 2024-05-25 21:46 | XMS_ITS | Clinical Summary ---
Author Organization [facility] [place] [address] Care Team Providers Care Rectification Printer Name Role Phone Katerina Jules Primary Care [...] 05/25/2024 3:15 PM CDT [place] [facility] [id number] [place] [address] Praveen Russell NP Error-please disregard 04/21/2024 10:10 AM CDT [place] [facility] [id number] [place] [address] Katerina Jules PA Anxiety 04/21/2024 Travel from [...] ST Respiratory Rate 31 12/03/2023 11:30 PM LOKIE ENGINEER Oxygen Saturation 99% 04/21/2024 10:15 AM CDT Inhaled Oxygen Concentration - - Weight 87.1 kg (192 lb) 04/21/2024 10:15 AM CDT Height 180.3 cm (5' 11) 01/12/2024 11:34 AM LOKIE ENGINEER Body Mass Index 26.78 01/12/2024 11:34 AM LOKIE ENGINEER Plan of Treatment Health Maintenance Due Date [...] ANTI HIV 1/2 Routine 01/12/2024 12:06 PM LOKIE ENGINEER Screen for STD (sexually transmitted disease) ANTI HCV Routine 01/12/2024 12:06 PM LOKIE ENGINEER Need for hepatitis C screening test from Last 3 Months or Most Recently Relevant to Health Maintenance Results * ANTI HCV (01/12/2024 12:06 PM LOKIE ENGINEER) HEPATITIS C ANTIBODY Non-Reacti ve Non-React jared 01/12/2024 10:25 PM LOKIE ENGINEER [facility] Comment:Please note, per www .CDC.gov: If a patient is known to be at high risk of HCV infection, or is symptomatic, and the physician's suspicion of HCV infection is high, HCV RNA testing is often employed and is of diagnostic value, even after an initial negative anti-HCV test result. Blood BLOOD SPECIMEN / Unknown Venipuncture / Unknown 01/12/2024 12:06 PM LOKIE ENGINEER 01/12/2024 12:06 PM LOKIE ENGINEER Katerina PINA SEND OUTS Performing Organization Address [facility] Co de Phone Number [facility] [employer] [address] [place] [address], * ANTI HIV 1/2 (01/12/2024 12:06 PM LOKIE ENGINEER) Pathologist [facility] HIV-1/HIV-2 SCREEN Non-Reacti ve Non-Reacti ve 01/12/2024 10:26 PM LOKIE ENGINEER [facility] Comment:HIV-1 p24 and HIV-1/ HIV-2 Ab Not Detected. Blood BLOOD SPECIMEN / Unknown Venipuncture / Unknown 01/12/2024 12:06 PM LOKIE ENGINEER 01/12/2024 12:06 PM LOKIE ENGINEER aKterina PINA SEND OUTS [facility] [address] [place] [address], [place] from Last 3 Months or Most Recently Relevant to Health Maintenance Advance Directives * Full Code (Latest Code Status on File) Date Activated Date Inactivated Comments 01/04/2011 9:55 PM 01/05/2011 5:34 PM Care Teams Rectification Printer Relationship Specialty Start [place] [address] [place] [address] PCP - General Physician Resident Care Assistant 01/12/24
[2024-05-25] MEDS: LORazepam 1 MG TABLET 2 MG PO (22:05)
[2024-05-25 22:22] VITALS: BP 121/99; PULSE 88; RESP 16; TEMP 36.7; O2SAT 99
[2024-05-25 22:22] LABS: Ethanol* 0.39 % (0.01-0.03)
== END 2024-05-26 00:03 | disposition home or self-care (01) ==
PROVIDERS: Emergency Provider Family Medicine
DX: S20.214A Contusion of middle front wall of thorax, initial encounter (principal); Y04.2XXA Assault by strike against or bumped into by another person, initial encounter; Y93.83 Activity, rough housing and horseplay
CPT/HCPCS: 36415; 82077; 99283; 99284; A9270; J3411; J7030

== ENCOUNTER 2024-06-09 16:28 | Emergency (ER) | payer MEDICARE, SELFPAY ==
--- OUTSIDE RECORDS SUMMARY | 2024-06-09 16:32 | XMS_ITS | Patient Health Record ---
Author Organization [facility] - Primary Address [address] [place] [address] Care Team Providers Care Acid Purification Equipment Operator Name Role Phone Different, PCP Primary [...] chronic (F43.12) Active confirmed Posttraumatic stress disorder ([id number]) PLAN OF TREATMENT No Information Insurance Providers Payer Name Payer Address Payer Phone Subscriber Number Group Number Insured Name Patient Relationship to Insured Coverage Start Date Coverage End Date [facility] [address] [place] [address] [id number] Ag Dykes Self - patient is the insured [facility] [address] [place] [address] [id number] Ag Dykes Self - patient is the insured MEDICAL (GENERAL) HISTORY Medical History History ICD Code PTSD Surgical History Surgery Date(Month/Year) collar bone Rt Hospitalization History Reason Date(Month/Year) ER with chest pain [place] 03/2020
--- OUTSIDE RECORDS SUMMARY | 2024-06-09 16:32 | XMS_ITS | Referral Summary ---
Author Organization [place] Address [facility] [place] [address] Care Team Providers Care Property Specialist Name Role Phone [facility] Primary Care Provider Allergies No known [...] and gender (Zuleyma et al., NEJM, DOI: 10.1056/[id number]) Blood STRUCTURE OF RIGHT UPPER LIMB / Unknown Venipuncture / Unknown 06/07/2022 4:39 PM CDT 06/07/2022 4:43 PM CDT Brad Cummings MD LAB - BLOOD ORDER ANA RH LABORATORY [facility] Acute Care Lab [address] Lab (1st floor, no room number) [place] [address], [facility] [phone] from Last 3 Months or Most Recently Relevant to Health Maintenance Care Teams Property Specialist Relationship Specialty Start Date End Date Clinic - [address] [address] PCP - General Internal Medicine 12/18/19
--- OUTSIDE RECORDS SUMMARY | 2024-06-09 16:32 | XMS_ITS | Clinical Summary ---
Author Organization [place] Address [address] [place] [address] Care Team Providers Care Mill Roll Rewinder Name Role Phone [facility] Primary Care Provider Allergies No known active [...] and gender (Zuleyma et al., NEJ, DOI: 10.1056/[id number]) Blood STRUCTURE OF RIGHT UPPER LIMB / Unknown Venipuncture / Unknown 06/07/2022 4:39 PM CDT 06/07/2022 4:43 PM CDT Brad Cummings MD LAB - BLOOD ORDER ANA LABORATORY [facility] Acute Care Lab [address] [facility] Lab (1st floor, no room number) [place] [address], [facility] [phone] from Last 3 Months or Most Recently Relevant to Health Maintenance Care Teams Mill Roll Rewinder Relationship Specialty Start Date End Date Clinic - [facility] [address] [place] [address] PCP - General Internal Medicine 12/18/19
--- OUTSIDE RECORDS SUMMARY | 2024-06-09 16:32 | XMS_ITS | Encounter Summary ---
Author Organization [facility] Address [address] [place] [address]. [place] [address] Care Team Providers Care Modeling Manager Name Role Phone [facility] Primary Care Provider Encounter Details Date [...] on filedocumented in this encounter Care Teams Modeling Manager Relationship Specialty Start Date End Date [facility] [address] [place] [address] PCP - General Internal Medicine 12/18/19 documented as of this encounter
--- OUTSIDE RECORDS SUMMARY | 2024-06-09 16:32 | XMS_ITS | Clinical Summary ---
Author Organization [facility] Address [place], [place] [address] Care Team Providers Care Water And Sewer Systems Superintendent Name Role Phone Katerina Jules Primary Care [...] Description 04/21/2024 10:10 AM CDT Office Visit [facility] [address] [place] [address] Katerina Jules PA Anxiety 04/21/2024 Travel from Last 3 Months Immunizations Name Administration Dates Next Due Tdap 01/06/2011 Social History Tobacco Use Types Packs/Day Years Used Date Smoking Tobacco: Every Day Cigarettes 0.5 11.6 Started: 2012 Smokeless Tobacco: Never Tobacco Cessation:Ready [...] ST Respiratory Rate 31 12/03/2023 11:30 PM PLASTERER STUCCO Oxygen Saturation 99% 04/21/2024 10:15 AM CDT Inhaled Oxygen Concentration - - Weight 87.1 kg (192 lb) 04/21/2024 10:15 AM CDT Height 180.3 cm (5' 11) 01/12/2024 11:34 AM PLASTERER STUCCO Body Mass Index 26.78 01/12/2024 11:34 AM PLASTERER STUCCO Plan of Treatment Health Maintenance Due Date [...] ANTI HIV 1/2 Routine 01/12/2024 12:06 PM PLASTERER STUCCO Screen for STD (sexually transmitted disease) ANTI HCV Routine 01/12/2024 12:06 PM PLASTERER STUCCO Need for hepatitis C screening test from Last 3 Months or Most Recently Relevant to Health Maintenance Results * ANTI HCV (01/12/2024 12:06 PM PLASTERER STUCCO) HEPATITIS C ANTIBODY Non-Reacti ve Non-React jared 01/12/2024 10:25 PM PLASTERER STUCCO [facility] TR[facility] Comment:Please note, per www .CDC.gov: If a patient is known to be at high risk of HCV infection, or is symptomatic, and the physician's suspicion of HCV infection is high, HCV RNA testing is often employed and is of diagnostic value, even after an initial negative anti-HCV test result. Blood BLOOD SPECIMEN / Unknown Venipuncture / Unknown 01/12/2024 12:06 PM PLASTERER STUCCO 01/12/2024 12:06 PM PLASTERER STUCCO Katerina PINA SEND OUTS Performing Organization Address City/[facility]/ZIP Co de Phone Number [facility] [address] [place] [address], * ANTI HIV 1/2 (01/12/2024 12:06 PM PLASTERER STUCCO) Pathologist [facility] HIV-1/HIV-2 SCREEN Non-Reacti ve Non-Reacti ve 01/12/2024 10:26 PM PLASTERER STUCCO [facility] TR[facility] Comment:HIV-1 p24 and HIV-1/ HIV-2 Ab Not Detected. Blood BLOOD SPECIMEN / Unknown Venipuncture / Unknown 01/12/2024 12:06 PM PLASTERER STUCCO 01/12/2024 12:06 PM PLASTERER STUCCO Katerina PINA SEND OUTS [facility] [address] [place] [address], from Last 3 Months or Most Recently Relevant to Health Maintenance Advance Directives * Full Code (Latest Code Status on File) Date Activated Date Inactivated Comments 01/04/2011 9:55 PM 01/05/2011 5:34 PM Care Teams Water And Sewer Systems Superintendent Relationship Specialty Start [place] [address] [place] [address] PCP - General Physician Rubber Engraver 01/12/24
[2024-06-09 16:41] VITALS: BP 146/103; PULSE 100; RESP 18; TEMP 36.3; O2SAT 99; BMI 25.1
[2024-06-09 17:34] LABS: Acetaminophen* < 10.0 ug/mL (10.0-30.0); Salicylate* < 1.0 mg/dL (1.0-10)
[2024-06-09 17:45] LABS: Ethanol* 0.38 % (0.01-0.03)
--- OUTSIDE RECORDS SUMMARY | 2024-06-09 19:16 | XMS_ITS | Clinical Summary ---
Author Organization [place] Address [address] [place] [address] Care Team Providers Care Intensivist Name Role Phone [facility] Primary Care Provider Allergies No known [...] and gender (Zuleyma et al., NEJ, DOI: 10.1056/[id number]) Blood STRUCTURE OF RIGHT UPPER LIMB / Unknown Venipuncture / Unknown 06/07/2022 4:39 PM CDT 06/07/2022 4:43 PM CDT Brad Cummings MD LAB - BLOOD ORDER ANA LABORATORY [facility] Acute Care Lab [address] [facility] Lab (1st floor, no room number) [place] [address], [facility] [phone] from Last 3 Months or Most Recently Relevant to Health Maintenance Care Teams Intensivist Relationship Specialty Start Date End Date Clinic - [facility] [address] [place] [address] PCP - General Internal Medicine 12/18/19
--- OUTSIDE RECORDS SUMMARY | 2024-06-09 19:16 | XMS_ITS | Encounter Summary ---
Author Organization [place] Address [address] [place] [address]. [place] [address] Care Team Providers Care Blood Bank Laboratory Professional Name Role Phone [facility] Primary Care Provider Encounter Details Date Type [...] on filedocumented in this encounter Care Teams Blood Bank Laboratory Professional Relationship Specialty Start Date End Date [facility] [address] [place] [address] PCP - General Internal Medicine 12/18/19 documented as of this encounter
--- OUTSIDE RECORDS SUMMARY | 2024-06-09 19:16 | XMS_ITS | Referral Summary ---
Author Organization [place] Address [facility] [place] [address] Care Team Providers Care Bufferer Name Role Phone [facility] Primary Care Provider Allergies No known [...] and gender (Zuleyma et al., NEJM, DOI: 10.1056/[id number]) Blood STRUCTURE OF RIGHT UPPER LIMB / Unknown Venipuncture / Unknown 06/07/2022 4:39 PM CDT 06/07/2022 4:43 PM CDT Brad Cummings MD LAB - BLOOD ORDER ANA RH LABORATORY [facility] Acute Care Lab [address] Lab (1st floor, no room number) [place] [address], [facility] [phone] from Last 3 Months or Most Recently Relevant to Health Maintenance Care Teams Bufferer Relationship Specialty Start Date End Date Clinic - [address] [address] PCP - General Internal Medicine 12/18/19
--- OUTSIDE RECORDS SUMMARY | 2024-06-09 19:16 | XMS_ITS | Clinical Summary ---
Author Organization [facility] Address [place], [place] [address] Care Team Providers Care Welder Apprentice Combination Name Role Phone Katerina Jules Primary Care [...] Description 04/21/2024 10:10 AM CDT Office Visit [facility] [address] [place] [address] Katerina Jules PA Anxiety 04/21/2024 Travel from [...] ST Respiratory Rate 31 12/03/2023 11:30 PM MANAGEMENT ANALYST Oxygen Saturation 99% 04/21/2024 10:15 AM CDT Inhaled Oxygen Concentration - - Weight 87.1 kg (192 lb) 04/21/2024 10:15 AM CDT Height 180.3 cm (5' 11) 01/12/2024 11:34 AM MANAGEMENT ANALYST Body Mass Index 26.78 01/12/2024 11:34 AM MANAGEMENT ANALYST Plan of Treatment Health Maintenance Due Date [...] ANTI HIV 1/2 Routine 01/12/2024 12:06 PM MANAGEMENT ANALYST Screen for STD (sexually transmitted disease) ANTI HCV Routine 01/12/2024 12:06 PM MANAGEMENT ANALYST Need for hepatitis C screening test from Last 3 Months or Most Recently Relevant to Health Maintenance Results * ANTI HCV (01/12/2024 12:06 PM MANAGEMENT ANALYST) HEPATITIS C ANTIBODY Non-Reacti ve Non-React jared 01/12/2024 10:25 PM MANAGEMENT ANALYST [facility] Comment:Please note, per www .CDC.gov: If a patient is known to be at high risk of HCV infection, or is symptomatic, and the physician's suspicion of HCV infection is high, HCV RNA testing is often employed and is of diagnostic value, even after an initial negative anti-HCV test result. Blood BLOOD SPECIMEN / Unknown Venipuncture / Unknown 01/12/2024 12:06 PM MANAGEMENT ANALYST 01/12/2024 12:06 PM MANAGEMENT ANALYST Katerina PINA SEND OUTS Performing Organization Address City/[facility]/ZIP Co de Phone Number [facility] [address] [place] [address], * ANTI HIV 1/2 (01/12/2024 12:06 PM MANAGEMENT ANALYST) Pathologist [facility] HIV-1/HIV-2 SCREEN Non-Reacti ve Non-Reacti ve 01/12/2024 10:26 PM MANAGEMENT ANALYST [facility] Comment:HIV-1 p24 and HIV-1/ HIV-2 Ab Not Detected. Blood BLOOD SPECIMEN / Unknown Venipuncture / Unknown 01/12/2024 12:06 PM MANAGEMENT ANALYST 01/12/2024 12:06 PM MANAGEMENT ANALYST Katerina PINA SEND OUTS [facility] [address] [place] [address], from Last 3 Months or Most Recently Relevant to Health Maintenance Advance Directives * Full Code (Latest Code Status on File) Date Activated Date Inactivated Comments 01/04/2011 9:55 PM 01/05/2011 5:34 PM Care Teams Welder Apprentice Combination Relationship Specialty Start [place] [address] [place] [address] PCP - General Physician Manual Machinist 01/12/24
== END 2024-06-09 19:24 | disposition left against medical advice (07) ==
PROVIDERS: Emergency Provider Emergency Medicine Emergency Medical Services
DX: Z53.21 Procedure and treatment not carried out due to patient leaving prior to being seen by health care provider (principal)
CPT/HCPCS: 36415; 80143; 80179; 80306; 82077

== ENCOUNTER 2024-06-22 14:22 | Emergency (ER) | payer MEDICARE, SELFPAY ==
--- OUTSIDE RECORDS SUMMARY | 2024-06-22 14:26 | XMS_ITS | Referral Summary ---
Author Organization [place] Address Critical access hospital0 [facility] [place] [address] Care Team Providers Care Dental Scheduler Name Role Phone [facility] Primary Care Provider Allergies No known [...] and gender (Zuleyma et al., NEJM, DOI: [id number]) Blood STRUCTURE OF RIGHT UPPER LIMB / Unknown Venipuncture / Unknown 06/07/2022 4:39 PM CDT 06/07/2022 4:43 PM CDT Brad Cummings MD LAB - BLOOD ORDER ANA RH LABORATORY [facility] Acute Care Lab [address] Lab (1st floor, no room number) [place] [address], [facility] [phone] from Last 3 Months or Most Recently Relevant to Health Maintenance Care Teams Dental Scheduler Relationship Specialty Start Date End Date Clinic - [address] [address] PCP - General Internal Medicine 12/18/19
--- OUTSIDE RECORDS SUMMARY | 2024-06-22 14:26 | XMS_ITS | Clinical Summary ---
Author Organization [facility] s [facility] Address [place], [place] [address] Care Team Providers Care Pet Crematory Worker Name Role Phone Katerina Jules Primary Care [...] Description 04/21/2024 10:10 AM CDT [place] [facility] [place] [address] [place] [address] Katerina Jules PA Anxiety 04/21/2024 Travel from [...] ST Respiratory Rate 31 12/03/2023 11:30 PM REMOTE BROADCAST TECHNICIAN Oxygen Saturation 99% 04/21/2024 10:15 AM CDT Inhaled Oxygen Concentration - - Weight 87.1 kg (192 lb) 04/21/2024 10:15 AM CDT Height 180.3 cm (5' 11) 01/12/2024 11:34 AM REMOTE BROADCAST TECHNICIAN Body Mass Index 26.78 01/12/2024 11:34 AM REMOTE BROADCAST TECHNICIAN Plan of Treatment Health Maintenance Due Date [...] ANTI HIV 1/2 Routine 01/12/2024 12:06 PM REMOTE BROADCAST TECHNICIAN Screen for STD (sexually transmitted disease) ANTI HCV Routine 01/12/2024 12:06 PM REMOTE BROADCAST TECHNICIAN Need for hepatitis C screening test from Last 3 Months or Most Recently Relevant to Health Maintenance Results * ANTI HCV (01/12/2024 12:06 PM REMOTE BROADCAST TECHNICIAN) HEPATITIS C ANTIBODY Non-Reacti ve Non-React jared 01/12/2024 10:25 PM REMOTE BROADCAST TECHNICIAN [facility] Comment:Please note, per www .CDC.gov: If a patient is known to be at high risk of HCV infection, or is symptomatic, and the physician's suspicion of HCV infection is high, HCV RNA testing is often employed and is of diagnostic value, even after an initial negative anti-HCV test result. Blood BLOOD SPECIMEN / Unknown Venipuncture / Unknown 01/12/2024 12:06 PM REMOTE BROADCAST TECHNICIAN 01/12/2024 12:06 PM REMOTE BROADCAST TECHNICIAN Katerina PINA SEND OUTS Performing Organization Address City/[facility]/ZIP Co de Phone Number [facility] [address] [place] [address], * ANTI HIV 1/2 (01/12/2024 12:06 PM REMOTE BROADCAST TECHNICIAN) Pathologist [facility] HIV-1/HIV-2 SCREEN Non-Reacti ve Non-Reacti ve 01/12/2024 10:26 PM REMOTE BROADCAST TECHNICIAN [facility] Comment:HIV-1 p24 and HIV-1/ HIV-2 Ab Not Detected. Blood BLOOD SPECIMEN / Unknown Venipuncture / Unknown 01/12/2024 12:06 PM REMOTE BROADCAST TECHNICIAN 01/12/2024 12:06 PM REMOTE BROADCAST TECHNICIAN Katerina PINA SEND OUTS [facility] [address] [place] [address], from Last 3 Months or Most Recently Relevant to Health Maintenance Advance Directives * Full Code (Latest Code Status on File) Date Activated Date Inactivated Comments 01/04/2011 9:55 PM 01/05/2011 5:34 PM Care Teams Pet Crematory Worker Relationship Specialty Start [place] [address] [place] [address] PCP - General Physician Health Records Technology Teacher 01/12/24
--- OUTSIDE RECORDS SUMMARY | 2024-06-22 14:26 | XMS_ITS | Encounter Summary ---
Author Organization [place] Address [address] [place] [address]. [place] [address] Care Team Providers Care Orthotist Name Role Phone [facility] Primary Care Provider Encounter Details Date [...] on filedocumented in this encounter Care Teams Orthotist Relationship Specialty Start Date End Date [facility] [address] [place] [address] PCP - General Internal Medicine 12/18/19 documented as of this encounter
--- OUTSIDE RECORDS SUMMARY | 2024-06-22 14:26 | XMS_ITS | Clinical Summary ---
Author Organization [place] Address [address] [place] [address] Care Team Providers Care Well Treatment Offsider Name Role Phone [facility] Primary Care Provider Allergies No known [...] and gender (Zuleyma et al., NEJ, DOI: 10.1056/[id number]) Blood STRUCTURE OF RIGHT UPPER LIMB / Unknown Venipuncture / Unknown 06/07/2022 4:39 PM CDT 06/07/2022 4:43 PM CDT Brad Cummings MD LAB - BLOOD ORDER ANA LABORATORY [facility] Acute Care Lab [address] [facility] Lab (1st floor, no room number) [place] [address], [facility] [phone] from Last 3 Months or Most Recently Relevant to Health Maintenance Care Teams Well Treatment Offsider Relationship Specialty Start Date End Date Clinic - [facility] [address] [place] [address] PCP - General Internal Medicine 12/18/19
--- OUTSIDE RECORDS SUMMARY | 2024-06-22 14:26 | XMS_ITS | Patient Health Record ---
Author Organization [facility] - Primary Address [address] [place] [address] Care Team Providers Care Spa Assistant Manager Name Role Phone Different, PCP Primary Care [...] chronic (F43.12) Active confirmed Posttraumatic stress disorder ([id number]) PLAN OF TREATMENT No Information Insurance Providers Payer Name Payer Address Payer Phone Subscriber Number Group Number Insured Name Patient Relationship to Insured Coverage Start Date Coverage End Date [facility] [address] [place] [address] [id number] Ag Dykes Self - patient is the insured [facility] [address] [place] [address] [phone] [id number] Ag Dykes Self - patient is the insured MEDICAL (GENERAL) HISTORY Medical History History ICD Code PTSD Surgical History Surgery Date(Month/Year) collar bone Rt Hospitalization History Reason Date(Month/Year) ER with chest pain [place] 03/2020
[2024-06-22 14:27] VITALS: BP 140/103; PULSE 88; RESP 24; TEMP 36.1; O2SAT 100; BMI 25.1
--- NOTE | 2024-06-22 14:50 | ED.GENADULT ---
HPI - General Adult General Chief complaint: Alcohol/Intoxication Stated complaint: Chest pain, panic attack, nauseous, alc withdrawal Time Seen by Provider: 06/22/24 14:24 History of Present Illness HPI narrative: Patient reports last drink one hour ago. Reports anxiety , nausea and chest tightness . 34-year-old man presenting to the emergency depart with concern of exacerbation of anxiety and wanting help with withdrawal from alcohol. Last drink was an hour ago. Seen by myself in this emergency department nearly a month ago. Did return about 2 weeks after that and left prior to being seen by a ER provider. Has had numerous visits to this emergency department. At my last encounter with Mr. Bentley, he was accompanied by his mother and promising to go to detox. He says this happened for [address] [facility]. He has most recently been to [facility] and says that he intends to follow up with inpatient now. He has a show to play tomorrow night to pay for rent and other bills and then intends to enter into treatment. Denies any SI or HI. Is feeling anxious, nauseated in with some chest tightness and as per usual is requesting some rehydration and a banana bag in particular if possible. Is also complaining of epigastric discomfort in particular. No he hematemesis or hematochezia noted. Melena. Related Data Previous Rx's ?Medication ?Instructions ?Recorded hydroxyzine HCl 25 mg tablet 25 mg PO QID PRN #30 tabs 05/16/24 lorazepam 1 mg tablet (Ativan) 1 mg PO TID PRN #6 tabs 05/16/24 ondansetron 4 mg disintegrating 4 mg PO Q6H PRN nausea and 05/16/24 tablet vomiting #20 tabs lorazepam 1 mg tablet 1 mg PO TID PRN anxiety #5 tabs 06/22/24 ondansetron 4 mg disintegrating 4 mg PO Q4-6H PRN nausea and 06/22/24 tablet vomiting #10 tabs Allergies Allergy/AdvReac Type Severity Reaction Status Date / Time No Known Drug Allergies Allergy Verified 04/08/24 13:59 Review of Systems Status of ROS: Reports: 6 or more systems reviewed and unremarkable except as noted in History and below PFSH PFSH Social History Smoking Status: Current every day smoker What tobacco products do you use: cigarettes Smoking packs per day: 1 Smoking cigarettes per day: 20.0 Years smoked: 6 Smoking pack-years: 6.00 Do you use any of these nicotine containing products: None Second hand tobacco smoke exposure: Yes How often do you have a drink containing alcohol: 4 or more times a week How many standard drinks containing alcohol do you have on a typical day: 10 or more How often do you have six or more drinks on one occasion: Daily or almost daily AUDIT-C Alcohol total score: 12 Non-prescribed substance use: marijuana (any form) service: No Exam Narrative: Exam Narrative: Carefully style eyes a tire/appearance. Is wearing sunglasses today. Appears calm. Head is atraumatic. Cranial nerves 2-12 intact. Pupils are equal. Subtle nystagmus horizontal. Moving all extremities without difficulty. No evidence of self-harm noted. Heart is in regular rate and rhythm. Blood pressure noted be a little elevated. Abdomen is soft and a little uncomfortable to palpation the epigastrium Const: Vital Signs, click to edit/add: Vital Signs - 24 hr 06/22/24 14:27 Temperature 97 F L Pulse Rate [Pulse Oximeter] 88 Respiratory Rate 24 Blood Pressure [Ri ght Upper Arm] 140/103 H Pulse Oximetry 100 Oxygen Delivery Me thod Room Air Documenting provider has reviewed patient's vital signs: yes Course Vital Signs Vital signs: Initial Vital Signs Temperature 97 F L 06/22/24 14:27 Temperature Source Temporal Artery Scan 06/22/24 14:27 Pulse Rate 88 06/22/24 14:27 Respiratory Rate 24 06/22/24 14:27 Blood Pressure 140/103 H 06/22/24 14:27 Blood Pressure Mean 115 H 06/22/24 14:27 Pulse Oximetry 100 06/22/24 14:27 Oxygen Delivery Method Room Air 06/22/24 14:27 Vital Signs Temperature 97 F L 06/22/24 14:27 Pulse Rate 88 06/22/24 14:27 Respiratory Rate 24 06/22/24 14:27 Blood Pressure 140/103 H 06/22/24 14:27 Pulse Oximetry 100 06/22/24 14:27 Oxygen Delivery Method Room Air 06/22/24 14:27 Temperature 97 F L 06/22/24 14:27 Pulse Rate 88 08/14/24 14:27 Respiratory Rate 24 06/22/24 14:27 Blood Pressure 140/103 H 06/22/24 14:27 Pulse Oximetry 100 06/22/24 14:27 Oxygen Delivery Method Room Air 06/22/24 14:27 Medications Administered Medications: Discontinued Medications Generic Name Dose Route Start Last Admin Trade Name Jany PRN Reason Stop Dose Admin Diazepam 5 mg 06/22/24 14:58 06/22/24 15:25 Diazepam 5 Mg Tablet PO 06/22/24 14:59 5 mg ONCE ONE Administration Sodium Chloride 1,000 mls @ 1,000 mls/hr 06/22/24 14:58 06/22/24 16:58 0.9 % Sodium Chloride 1000 Ml IV 06/22/24 15:57 Infused .Q1H ONE Infusion Lidocaine/Aluminum/Magnesium/Simeth 30 ml 06/22/24 14:58 06/22/24 15:25 Gi Cocktail (Visc Lido/Antacid) 30 Ml PO 06/22/24 14:59 30 ml ONCE ONE Administration Ondansetron HCl 4 mg 06/22/24 14:58 06/22/24 15:25 Ondansetron 2 Mg/Ml Inj IVP 06/22/24 14:59 4 mg ONCE ONE Administration Medical Decision Making MDM Narrative Medical decision making narrative: Does appear to be mildly intoxicated. He does not appear to be in particular distress. Would offer singular dose of oral benzodiazepine along with GI cocktail and Zofran. I do not want to keep giving supporting visits with banana bag and the interest of time will give a L of normal saline. Has managed to rest/sleep in the emergency department. On reassessment is improved. Have encouraged to detox again though this is futile given his financial concerns in the short term. He did toward the end of visit request some medications to help with symptoms over the next couple of days until re-entering treatments specifically inpatient as discussed. I did acquiesce with a small amount of prescription though I would not continue to do this as I discussed with him. See patient discharge plan for further discussion Discharged to a waiting friend. Medical Records Medical records reviewed: Yes I reviewed the patient's medical records Discharge Plan Discharge Clinical Impression: Alcohol intoxication, Anxiety Patient Disposition: Home w/ Parent or Adult Condition: Improved Additional Instructions: Best wishes on your show tomorrow and your efforts at sobriety. Please contact [facility] as discussed for their inpatient program Prescriptions: New lorazepam 1 mg tablet 1 mg PO TID PRN (Reason: anxiety) Qty: 5 0RF ondansetron 4 mg tablet,disintegrating 4 mg PO Q4-6H PRN (Reason: nausea and vomiting) Qty: 10 0RF No Action lorazepam [Ativan] 1 mg tablet 1 mg PO TID PRNQty: 6 0RF hydroxyzine HCl 25 mg tablet 25 mg PO QID PRNQty: 30 0RF ondansetron 4 mg tablet,disintegrating 4 mg PO Q6H PRN (Reason: nausea and vomiting) Qty: 20 0RF Follow Up/Referrals: Provider,Not a Local [Primary Care Provider] - Stand Alone Forms: [employer] Info Instructions
--- OUTSIDE RECORDS SUMMARY | 2024-06-22 15:18 | XMS_ITS | Clinical Summary ---
Author Organization [facility] s [facility] Address [place], [place] [address] Care Team Providers Care Thermoforming Operator Name Role Phone Katerina Jules Primary Care [...] Description 04/21/2024 10:10 AM CDT Office [place] [facility] [address] [place] [address] Katerina Jules PA Anxiety 04/21/2024 Travel from [...] ST Respiratory Rate 31 12/03/2023 11:30 PM TECHNOLOGY INFUSION SPECIALIST Oxygen Saturation 99% 04/21/2024 10:15 AM CDT Inhaled Oxygen Concentration - - Weight 87.1 kg (192 lb) 04/21/2024 10:15 AM CDT Height 180.3 cm (5' 11) 01/12/2024 11:34 AM TECHNOLOGY INFUSION SPECIALIST Body Mass Index 26.78 01/12/2024 11:34 AM TECHNOLOGY INFUSION SPECIALIST Plan of Treatment Health Maintenance Due [...] ANTI HIV 1/2 Routine 01/12/2024 12:06 PM TECHNOLOGY INFUSION SPECIALIST Screen for STD (sexually transmitted disease) ANTI HCV Routine 01/12/2024 12:06 PM TECHNOLOGY INFUSION SPECIALIST Need for hepatitis C screening test from Last 3 Months or Most Recently Relevant to Health Maintenance Results * ANTI HCV (01/12/2024 12:06 PM TECHNOLOGY INFUSION SPECIALIST) HEPATITIS C ANTIBODY Non-Reacti ve Non-React jared 01/12/2024 10:25 PM TECHNOLOGY INFUSION SPECIALIST [facility] Comment:Please note, per www .CDC.gov: If a patient is known to be at high risk of HCV infection, or is symptomatic, and the physician's suspicion of HCV infection is high, HCV RNA testing is often employed and is of diagnostic value, even after an initial negative anti-HCV test result. Blood BLOOD SPECIMEN / Unknown Venipuncture / Unknown 01/12/2024 12:06 PM TECHNOLOGY INFUSION SPECIALIST 01/12/2024 12:06 PM TECHNOLOGY INFUSION SPECIALIST Katerina PINA SEND OUTS Performing Organization Address City/[facility]/ZIP Co de Phone Number [facility] [address] [place] [address], * ANTI HIV 1/2 (01/12/2024 12:06 PM TECHNOLOGY INFUSION SPECIALIST) Pathologist [facility] HIV-1/HIV-2 SCREEN Non-Reacti ve Non-Reacti ve 01/12/2024 10:26 PM TECHNOLOGY INFUSION SPECIALIST [facility] Comment:HIV-1 p24 and HIV-1/ HIV-2 Ab Not Detected. Blood BLOOD SPECIMEN / Unknown Venipuncture / Unknown 01/12/2024 12:06 PM TECHNOLOGY INFUSION SPECIALIST 01/12/2024 12:06 PM TECHNOLOGY INFUSION SPECIALIST Katerina PINA SEND OUTS [facility] [address] [place] [address], from Last 3 Months or Most Recently Relevant to Health Maintenance Advance Directives * Full Code (Latest Code Status on File) Date Activated Date Inactivated Comments 01/04/2011 9:55 PM 01/05/2011 5:34 PM Care Teams Thermoforming Operator Relationship Specialty Start [place] [address] [place] [address] PCP - General Physician Baseball Winder 01/12/24
--- OUTSIDE RECORDS SUMMARY | 2024-06-22 15:18 | XMS_ITS | Referral Summary ---
Author Organization [place] Address [facility] [place] [address] Care Team Providers Care Music Agent Name Role Phone [facility] Primary Care Provider Allergies No [...] and gender (Zuleyma et al., NEJM, DOI: [id number]/[id number]) Blood STRUCTURE OF RIGHT UPPER LIMB / Unknown Venipuncture / Unknown 06/07/2022 4:39 PM CDT 06/07/2022 4:43 PM CDT Brad Cummings MD LAB - BLOOD ORDER ANA RH LABORATORY [facility] Acute Care Lab [address] Lab (1st floor, no room number) [place] [address], [facility] [phone] from Last 3 Months or Most Recently Relevant to Health Maintenance Care Teams Music Agent Relationship Specialty Start Date End Date Clinic - [address] [address] PCP - General Internal Medicine 12/18/19
--- OUTSIDE RECORDS SUMMARY | 2024-06-22 15:18 | XMS_ITS | Clinical Summary ---
Author Organization [place] Address [address] [place] [address] Care Team Providers Care Tool Carrier Name Role Phone [facility] Primary Care Provider Allergies No known [...] and gender (Zuleyma et al., NEJ, DOI: 10.1056/[id number]) Blood STRUCTURE OF RIGHT UPPER LIMB / Unknown Venipuncture / Unknown 06/07/2022 4:39 PM CDT 06/07/2022 4:43 PM CDT Brad Cummings MD LAB - BLOOD ORDER ANA LABORATORY [facility] Acute Care Lab [address] [facility] Lab (1st floor, no room number) [place] [address], [facility] [phone] from Last 3 Months or Most Recently Relevant to Health Maintenance Care Teams Tool Carrier Relationship Specialty Start Date End Date Clinic - [facility] [address] [place] [address] PCP - General Internal Medicine 12/18/19
--- OUTSIDE RECORDS SUMMARY | 2024-06-22 15:18 | XMS_ITS | Encounter Summary ---
Author Organization [place] Address [address] [place] [address]. [place] [address] Care Team Providers Care Artificial Snow Making Machine Operator Name Role Phone [facility] Primary Care Provider Encounter Details Date Type [...] on filedocumented in this encounter Care Teams Artificial Snow Making Machine Operator Relationship Specialty Start Date End Date [facility] [address] [place] [address] PCP - General Internal Medicine 12/18/19 documented as of this encounter
[2024-06-22] MEDS: ONDANSETRON 2 MG/ML inj 4 MG IVP (15:25)
[2024-06-22] MEDS: diazePAM 5 MG TABLET PO (15:25)
[2024-06-22] MEDS: 0.9 % SODIUM CHLORIDE 1000 ml 1,000 ML IV (15:25)
[2024-06-22] MEDS: GI COCKTAIL (VISC LIDO/ANTACID) 30 ML PO (15:25)
== END 2024-06-22 17:03 | disposition home or self-care (01) ==
PROVIDERS: Emergency Provider Family Medicine
DX: F10.129 Alcohol abuse with intoxication, unspecified (principal); F41.9 Anxiety disorder, unspecified
CPT/HCPCS: 96361; 96374; 99284; A9270; J2405; J7030

== ENCOUNTER 2024-06-28 17:58 | Emergency (ER) | payer MEDICARE, SELFPAY ==
--- OUTSIDE RECORDS SUMMARY | 2024-06-28 18:03 | XMS_ITS | Referral Summary ---
Author Organization [place] Address [facility] [place] [address] Care Team Providers Care Web Site Project Manager Name Role Phone [facility] Primary Care Provider Allergies No known [...] and gender (Zuleyma et al., NEJM, DOI: 10.1056/[id number]) Blood STRUCTURE OF RIGHT UPPER LIMB / Unknown Venipuncture / Unknown 06/07/2022 4:39 PM CDT 06/07/2022 4:43 PM CDT Brad Cummings MD LAB - BLOOD ORDER ANA RH LABORATORY [facility] Acute Care Lab [address] Lab (1st floor, no room number) [place] [address], [facility] [phone] from Last 3 Months or Most Recently Relevant to Health Maintenance Care Teams Web Site Project Manager Relationship Specialty Start Date End Date Clinic - [address] [address] PCP - General Internal Medicine 12/18/19
--- OUTSIDE RECORDS SUMMARY | 2024-06-28 18:03 | XMS_ITS | Patient Health Record ---
Author Organization [facility] - Primary Address [address] [place] [address] Care Team Providers Care Webfocus Developer Name Role Phone Different, PCP Primary Care [...] many cigarettes a day do you smoke? 20 PROBLEMS Problem Type ICD Code Onset Dates Problem Status W/U Status Risk SNOMED Code Notes Problem Post-traumat ic stress disorder, chronic (F43.12) Active confirmed Posttraumatic stress disorder (22750502) PLAN OF TREATMENT No Information Insurance Providers Payer Name Payer Address Payer Phone Subscriber Number Group Number Insured Name Patient Relationship to Insured Coverage Start Date Coverage End Date [facility] [address] [place] [address] [id number] Ag Dykes Self - patient is the insured [facility] [address] [place] [address] [id number] Ag Dykes Self - patient is the insured MEDICAL (GENERAL) HISTORY Medical History History ICD Code PTSD Surgical History Surgery Date(Month/Year) collar bone Rt Hospitalization History Reason Date(Month/Year) ER with chest pain [place] 03/2020
--- OUTSIDE RECORDS SUMMARY | 2024-06-28 18:03 | XMS_ITS | Clinical Summary ---
Author Organization [place] Address [address] [place] [address] Care Team Providers Care Drug Room Operator Name Role Phone [facility] Primary Care Provider Allergies [...] and gender (Zuleyma et al., NEJ, DOI: 10.1056/[id number]) Blood STRUCTURE OF RIGHT UPPER LIMB / Unknown Venipuncture / Unknown 06/07/2022 4:39 PM CDT 06/07/2022 4:43 PM CDT Brad Cummings MD LAB - BLOOD ORDER ANA LABORATORY [facility] Acute Care Lab [address] [facility] Lab (1st floor, no room number) [place] [address], [facility] [phone] from Last 3 Months or Most Recently Relevant to Health Maintenance Care Teams Drug Room Operator Relationship Specialty Start Date End Date Clinic - [facility] [address] [place] [address] PCP - General Internal Medicine 12/18/19
--- OUTSIDE RECORDS SUMMARY | 2024-06-28 18:03 | XMS_ITS | Encounter Summary ---
Author Organization [place] Address [address] [place] [address]. [place] [address] Care Team Providers Care Machine Setter Name Role Phone [facility] Primary Care Provider Encounter Details Date Type [...] on filedocumented in this encounter Care Teams Machine Setter Relationship Specialty Start Date End Date [facility] [address] [place] [address] PCP - General Internal Medicine 12/18/19 documented as of this encounter
--- OUTSIDE RECORDS SUMMARY | 2024-06-28 18:03 | XMS_ITS | Clinical Summary ---
Author Organization [facility] s & [facility] Address [place], [place] [address] Care Team Providers Care Hop Sorter Name Role Phone Katerina Jules Primary Care [...] Description 04/21/2024 10:10 AM CDT Office Visit [facility] [address] [place] [address] Katerina Jules PA Anxiety 04/21/2024 Travel from [...] ST Respiratory Rate 31 12/03/2023 11:30 PM EMBEDDED SYSTEMS SOFTWARE DEVELOPER Oxygen Saturation 99% 04/21/2024 10:15 AM CDT Inhaled Oxygen Concentration - - Weight 87.1 kg (192 lb) 04/21/2024 10:15 AM CDT Height 180.3 cm (5' 11) 01/12/2024 11:34 AM EMBEDDED SYSTEMS SOFTWARE DEVELOPER Body Mass Index 26.78 01/12/2024 11:34 AM EMBEDDED SYSTEMS SOFTWARE DEVELOPER Plan of Treatment Health Maintenance Due Date [...] ANTI HIV 1/2 Routine 01/12/2024 12:06 PM EMBEDDED SYSTEMS SOFTWARE DEVELOPER Screen for STD (sexually transmitted disease) ANTI HCV Routine 01/12/2024 12:06 PM EMBEDDED SYSTEMS SOFTWARE DEVELOPER Need for hepatitis C screening test from Last 3 Months or Most Recently Relevant to Health Maintenance Results * ANTI HCV (01/12/2024 12:06 PM EMBEDDED SYSTEMS SOFTWARE DEVELOPER) HEPATITIS C ANTIBODY Non-Reacti ve Non-React jared 01/12/2024 10:25 PM EMBEDDED SYSTEMS SOFTWARE DEVELOPER [facility] Comment:Please note, per www .CDC.gov: If a patient is known to be at high risk of HCV infection, or is symptomatic, and the physician's suspicion of HCV infection is high, HCV RNA testing is often employed and is of diagnostic value, even after an initial negative anti-HCV test result. Blood BLOOD SPECIMEN / Unknown Venipuncture / Unknown 01/12/2024 12:06 PM EMBEDDED SYSTEMS SOFTWARE DEVELOPER 01/12/2024 12:06 PM EMBEDDED SYSTEMS SOFTWARE DEVELOPER Katerina PINA SEND OUTS Performing Organization Address City/[facility]/ZIP Co de Phone Number [facility] [address] [place] [address], * ANTI HIV 1/2 (01/12/2024 12:06 PM EMBEDDED SYSTEMS SOFTWARE DEVELOPER) Pathologist [facility] HIV-1/HIV-2 SCREEN Non-Reacti ve Non-Reacti ve 01/12/2024 10:26 PM EMBEDDED SYSTEMS SOFTWARE DEVELOPER [facility] Comment:HIV-1 p24 and HIV-1/ HIV-2 Ab Not Detected. Blood BLOOD SPECIMEN / Unknown Venipuncture / Unknown 01/12/2024 12:06 PM EMBEDDED SYSTEMS SOFTWARE DEVELOPER 01/12/2024 12:06 PM EMBEDDED SYSTEMS SOFTWARE DEVELOPER Katerina PINA SEND OUTS [facility] [address] [place] [address], from Last 3 Months or Most Recently Relevant to Health Maintenance Advance Directives * Full Code (Latest Code Status on File) Date Activated Date Inactivated Comments 01/04/2011 9:55 PM 01/05/2011 5:34 PM Care Teams Hop Sorter Relationship Specialty Start [place] [address] [place] [address] PCP - General Physician Travel Pt 01/12/24
[2024-06-28 18:10] VITALS: BP 133/90; PULSE 101; RESP 18; TEMP 36.5; O2SAT 98; BMI 25.1
--- NOTE | 2024-06-28 18:22 | CRLHL7_ITS ---
For Patients: As a result of the Century Cures Act, medical imaging exams and procedure reports are released immediately into your electronic medical record. You may view this report before your referring provider. If you have questions, please contact your health care provider. INDICATION: Worsening sternal pain. TECHNIQUE: CT chest without contrast. COMPARISON: None. FINDINGS: Lungs and pleura: No suspicious nodules or infiltrates. Scattered atelectasis. No pleural effusions, pleural thickening, or pneumothorax. Heart and vasculature: Heart size is normal. Thoracic aorta and pulmonary artery are normal in caliber. Lymph nodes/mediastinum: No mediastinal, hilar, or axillary adenopathy. Chest wall: No masses. Upper abdomen: No significant findings. Bones: Unremarkable for age. IMPRESSION: No acute intrathoracic abnormality. Please note that all CT scans at this facility use dose modulation, iterative reconstruction, and/or weight-based dosing when appropriate to reduce radiation dose to as low as reasonably achievable. Dictated by Murtaza Curtis MD @ 06/28/2024 6:59:49 PM (Electronically Signed)
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
--- OUTSIDE RECORDS SUMMARY | 2024-06-28 18:41 | XMS_ITS | Referral Summary ---
Author Organization [place] Address [facility] [facility] [address] Care Team Providers Care Java Consultant Name Role Phone [facility] Primary Care Provider Allergies No known active [...] and gender (Zuleyma et al., NEJM, DOI: 10.1056/[id number]) Blood STRUCTURE OF RIGHT UPPER LIMB / Unknown Venipuncture / Unknown 06/07/2022 4:39 PM CDT 06/07/2022 4:43 PM CDT Brad Cummings MD LAB - BLOOD ORDER ANA RH LABORATORY [facility] Acute Care Lab [address] Lab (1st floor, no room number) [place] [address], [facility] [phone] from Last 3 Months or Most Recently Relevant to Health Maintenance Care Teams Java Consultant Relationship Specialty Start Date End Date Clinic - [address] [address] PCP - General Internal Medicine 12/18/19
--- OUTSIDE RECORDS SUMMARY | 2024-06-28 18:41 | XMS_ITS | Clinical Summary ---
Author Organization [facility] s & [facility] Address [place], [place] [address] Care Team Providers Care Story Editor Name Role Phone Katerina Jules Primary Care [...] Description 04/21/2024 10:10 AM CDT Office Visit [facility] [address] [place] [address] Katerina Jules PA Anxiety 04/21/2024 Travel from [...] ST Respiratory Rate 31 12/03/2023 11:30 PM ABRASIVE COATING MACHINE OPERATOR Oxygen Saturation 99% 04/21/2024 10:15 AM CDT Inhaled Oxygen Concentration - - Weight 87.1 kg (192 lb) 04/21/2024 10:15 AM CDT Height 180.3 cm (5' 11) 01/12/2024 11:34 AM ABRASIVE COATING MACHINE OPERATOR Body Mass Index 26.78 01/12/2024 11:34 AM ABRASIVE COATING MACHINE OPERATOR Plan of Treatment Health Maintenance Due [...] ANTI HIV 1/2 Routine 01/12/2024 12:06 PM ABRASIVE COATING MACHINE OPERATOR Screen for STD (sexually transmitted disease) ANTI HCV Routine 01/12/2024 12:06 PM ABRASIVE COATING MACHINE OPERATOR Need for hepatitis C screening test from Last 3 Months or Most Recently Relevant to Health Maintenance Results * ANTI HCV (01/12/2024 12:06 PM ABRASIVE COATING MACHINE OPERATOR) HEPATITIS C ANTIBODY Non-Reacti ve Non-React jared 01/12/2024 10:25 PM ABRASIVE COATING MACHINE OPERATOR [facility] Comment:Please note, per [...] Unknown Venipuncture / Unknown 01/12/2024 12:06 PM ABRASIVE COATING MACHINE OPERATOR 01/12/2024 12:06 PM ABRASIVE COATING MACHINE OPERATOR Katerina PINA SEND OUTS Performing Organization Address City/[facility]/ZIP Co de Phone Number [facility] [address] [place] [address], * ANTI HIV 1/2 (01/12/2024 12:06 PM ABRASIVE COATING MACHINE OPERATOR) Pathologist [facility] HIV-1/HIV-2 SCREEN Non-Reacti ve Non-Reacti ve 01/12/2024 10:26 PM ABRASIVE COATING MACHINE OPERATOR [facility] Comment:HIV-1 p24 and HIV-1/ HIV-2 Ab Not Detected. Blood BLOOD SPECIMEN / Unknown Venipuncture / Unknown 01/12/2024 12:06 PM ABRASIVE COATING MACHINE OPERATOR 01/12/2024 12:06 PM ABRASIVE COATING MACHINE OPERATOR Katerina PINA SEND OUTS [facility] [address] [place] [address], from Last 3 Months or Most Recently Relevant to Health Maintenance Advance Directives * Full Code (Latest Code Status on File) Date Activated Date Inactivated Comments 01/04/2011 9:55 PM 01/05/2011 5:34 PM Care Teams Story Editor Relationship Specialty Start [place] [address] [place] [address] PCP - General Physician Folded Towel Machine Operator 01/12/24
--- OUTSIDE RECORDS SUMMARY | 2024-06-28 18:41 | XMS_ITS | Clinical Summary ---
Author Organization [place] Address [address] [place] [address] Care Team Providers Care Commodity Loan Clerk Name Role Phone [facility] Primary Care Provider Allergies No known [...] and gender (Zuleyma et al., NEJ, DOI: 10.1056/[id number]) Blood STRUCTURE OF RIGHT UPPER LIMB / Unknown Venipuncture / Unknown 06/07/2022 4:39 PM CDT 06/07/2022 4:43 PM CDT Brad Cummings MD LAB - BLOOD ORDER ANA LABORATORY [facility] Acute Care Lab [address] [facility] Lab (1st floor, no room number) [place] [address], [facility] [phone] from Last 3 Months or Most Recently Relevant to Health Maintenance Care Teams Commodity Loan Clerk Relationship Specialty Start Date End Date Clinic - [facility] [address] [place] [address] PCP - General Internal Medicine 12/18/19
--- OUTSIDE RECORDS SUMMARY | 2024-06-28 18:41 | XMS_ITS | Encounter Summary ---
Author Organization [place] Address [address] [place] [address]. [place] [address] Care Team Providers Care Plant Wrapper Name Role Phone [facility] Primary Care Provider Encounter Details Date Type [...] on filedocumented in this encounter Care Teams Plant Wrapper Relationship Specialty Start Date End Date [facility] [address] [place] [address] PCP - General Internal Medicine 12/18/19 documented as of this encounter
== END 2024-06-28 19:30 | disposition home or self-care (01) ==
PROVIDERS: Emergency Provider Emergency Medicine
DX: S20.214A Contusion of middle front wall of thorax, initial encounter (principal); Y04.2XXA Assault by strike against or bumped into by another person, initial encounter
CPT/HCPCS: 71250; 99284

== ENCOUNTER 2024-10-25 17:03 | Emergency (ER) | payer MEDICARE, SELFPAY ==
--- OUTSIDE RECORDS SUMMARY | 2024-10-25 17:06 | XMS_ITS ---
Author Organization Unknown Address [facility] [address], [place] [address] Phone Care Team Providers Care Unit Aide Name Role Phone Unavailable Xwatchlist Unavailable FABBY COUCH Attending Unavailable Results CBC WITH DIFF - Collect Date /Time: 08/04/2022 19:50 [facility] tem ID: [id number] - [id number] [address] [facility], [id number] LOINC: 66588-5 Test Value Unit Reference Range Code Code System Flag Hgb 14.9 g/dL L=13.5 H=17.5 718-7 LOINC Hct 43.3 % L=41.0 H=53.0 4544-3 LOINC RBC 4.62 10^6/uL L=4.50 H=5.20 789-8 LOINC MCV 94 fl L=80 H=100 787-2 LOINC MCH 32.3 pg L=26.0 H=34.0 785-6 LOINC MCHC 34.4 g/dL L=31.0 H=37.0 786-4 LOINC Plt 279 10^3/uL L=130 H=400 777-3 LOINC RDW 12.0 % L=11.5 H=14.5 788-0 LOINC WBC 6.6 10^3/uL L=4.5 H=11.0 6690-2 LOINC Absolute Neut 4.27 10^3/uL L=1.70 H=7.00 751-8 LOINC Absolute Lym 1.40 10^3/uL L=0.90 H=2.90 731-0 LOINC Absolute Briscoe 0.82 10^3/uL L=0.30 H=0.90 742-7 LOINC Absolute Eos 0.05 10^3/uL L=0.05 H=0.50 711-2 LOINC Absolute Baso 0.05 10^3/uL L=0.00 H=0.30 704-7 LOINC Absolute IG 0.03 10^3uL 65210-1 LOINC %Seg 64.4 % 769-0 LOINC %Lymphs 21.1 % 737-7 LOINC %Briscoe 12.4 % 744-3 LOINC %Eos 0.8 % 714-6 LOINC %Baso 0.8 % 707-0 LOINC %IG 0.5 % L=0.0 H=5.0 99970-5 LOINC Manual Diff Not Indicated Rbc Morph PANEL COMP METABOLIC - Colle ct Date/Time: 08/04/2022 19:50 [facility] tem ID: [id number] - [id number] [address] , [place], [place], [id number] LOINC: 77193-1 Test Value Unit Reference Range Code Code System Flag Glucose 114 mg/dL L=70 H=100 2345-7 LOINC H Bun 11 mg/dL L=9 H=21 3094-0 LOINC Creatinine 0.9 mg/dL L=0.8 H=1.5 2160-0 LOINC AGE 32 [address]-0 LOINC eGFR 97 ml/min/m^2 L=60 H=130 99581-1 LOINC Sodium 145 mmol/L L=137 H=145 2951-2 LOINC Potassium 3.9 mmol/L L=3.5 H=5.0 2823-3 LOINC Chloride 108 mmol/L L=98 H=107 2075-0 LOINC H CO2 24 mmol/L L=22 H=31 2028-9 LOINC Anion Gap 17 1863-0 LOINC Calcium 9.5 mg/dL L=8.4 H=10.2 30793-4 LOINC AST 64 u/L L=17 H=59 1920-8 LOINC H ALT 66 u/L L=0 H=50 1742-6 LOINC H Alk Phos 77 u/L L=38 H=126 6768-6 LOINC Bili Total 0.2 mg/dL L=0.2 H=1.3 1975-2 LOINC Albumin 4.7 g/dL L=3.5 H=5.0 1751-7 LOINC T Protein 7.2 g/dL L=6.3 H=8.2 2885-2 LOINC TROPONIN I - Collect Date/Ti me: 08/04/2022 19:50 [facility] tem ID: [id number] - [id number] [address] , [place], [place], [id number] LOINC: 97700-2 Test Value Unit Reference Range Code Code System Flag Troponin I < 0.01 ng/ml L=0.00 H=0.04 77706-1 LOINC APTT - Collect Date/Time: 19:50 [facility] tem ID: [id number] - [id number] [address] , [place], [place], [id number] LOINC: 20199-9 Test Value Unit Reference Range Code Code System Flag APTT 24.9 SEC L=24.0 H=32.0 52420-4 LOINC PROTIME - Collect Date/Time: 08/04/2022 19:50 [facility] tem ID: [id number] - [id number] [address] , [place], [place], [id number] LOINC: 5902-2 Test Value Unit Reference Range Code Code System Flag Protime 9.9 SEC L=9.5 H=12.1 INR 0.9 6301-6 LOINC AMMONIA - Collect Date/Time: 08/04/2022 19:50 [facility] tem ID: [id number] - [id number] [address] , [place], [place], [id number] LOINC: 67424-1 Test Value Unit Reference Range Code Code System Flag Ammonia < 9 umol/L L=9 H=33 97552-8 LOINC ETHANOL BLOOD MED (ALCOHOL) - Collect Date/Time: 08/04/2022 19:50 [facility] tem ID: [id number] - [id number] [address] , [place], [place], [id number] LOINC: 5643-2 Test Value Unit Reference Range Code Code System Flag ETHANOL,MEDICAL 300 mg/dL L=0 H=10 5643-2 LOINC H MAGNESIUM - Collect Date/Alhaji e: 08/04/2022 19:50 [facility] tem ID: [id number] - [id number] [address] [facility], [place], [id number] LOINC: 31129-1 Test Value Unit Reference Range Code Code System Flag Magnesium 2.4 mg/dL L=1.7 H=2.2 87477-8 LOINC H Social History Type Status Start Date End Date Code Code Syst em Smoking History Current every day smoker 234237015 SNOMED CT Smoking History Never smoker (Never Smoked) 583595039 SNOMED CT Sex Male Hospital Discharge Instructions Should you have any questions prior to discharge, please contact a member of your healthcare team. If you have left the hospital and have any questions, please contact your primary care physician. Reason For Referral No Data Found Allergies and Adverse Reactions Allergy Substance Reaction Severity Start Date Concern Status Co de Code System No Known Drug Allergies Moderate Active 836682970 SNOMED-CT Plan of Treatment No Data Found Encounters Encounter Diagnosis Start Date Code Code Sys tem Alcohol dependence with withdrawal, unspecified 2021 SNOMED-CT Personal Care Team Section Performer Name Performer Role Active Date Inactive Da te Discharge Summary Notes [facility] RECORD FINAL Scanned image
[2024-10-25 17:09] VITALS: BP 127/83; PULSE 108; RESP 22; TEMP 36.9; O2SAT 98; BMI 24.4
--- OUTSIDE RECORDS SUMMARY | 2024-10-25 18:40 | XMS_ITS ---
Author Organization Unknown Address [facility] [address], [place] [id number] Phone Care Team Providers Care Cloth Winding Supervisor Name Role Phone Unavailable Xwatchlist Unavailable FABBY COUCH Attending Unavailable Results CBC WITH DIFF - Collect Date /Time: 08/04/2022 19:50 [facility] tem ID: [id number] [address] [facility], [id number] LOINC: 24929-9 Test Value Unit Reference Range Code Code [...] 1.40 10^3/uL L=0.90 H=2.90 731-0 LOINC Absolute [place] 0.82 10^3/uL L=0.30 H=0.90 742-7 LOINC Absolute Eos 0.05 10^3/uL L=0.05 H=0.50 711-2 LOINC Absolute Baso 0.05 10^3/uL L=0.00 H=0.30 704-7 LOINC Absolute IG 0.03 10^3uL 47001-8 LOINC %Seg 64.4 % 769-0 LOINC %Lymphs 21.1 % 737-7 LOINC %Pendleton 12.4 % 744-3 LOINC %Eos 0.8 % 714-6 LOINC %Baso 0.8 % 707-0 LOINC %IG 0.5 % L=0.0 H=5.0 51371-3 LOINC Manual Diff Not Indicated Rbc Morph PANEL COMP METABOLIC - Colle ct Date/Time: 08/04/2022 19:50 [facility] tem ID: [id number] [address] , [place], [place], [id number] LOINC: 22153-1 Test Value Unit Reference Range Code Code System Flag Glucose 114 mg/dL L=70 H=100 2345-7 LOINC H Bun 11 mg/dL L=9 H=21 3094-0 LOINC Creatinine 0.9 mg/dL L=0.8 H=1.5 2160-0 LOINC AGE 32 76[address]-2 LOINC eGFR 97 ml/min/m^2 L=60 H=130 03348-5 LOINC Sodium 145 mmol/L L=137 H=145 2951-2 LOINC Potassium 3.9 mmol/L L=3.5 H=5.0 2823-3 LOINC Chloride 108 mmol/L L=98 H=107 2075-0 LOINC H CO2 24 mmol/L L=22 H=31 2028-9 LOINC Anion Gap 17 1863-0 LOINC Calcium 9.5 mg/dL L=8.4 H=10.2 48168-6 LOINC AST 64 u/L L=17 H=59 1920-8 LOINC H ALT 66 u/L L=0 H=50 1742-6 LOINC H Alk Phos 77 u/L L=38 H=126 6768-6 LOINC Bili Total 0.2 mg/dL L=0.2 H=1.3 1975-2 LOINC Albumin 4.7 g/dL L=3.5 H=5.0 1751-7 LOINC T Protein 7.2 g/dL L=6.3 H=8.2 2885-2 LOINC TROPONIN I - Collect Date/Ti me: 08/04/2022 19:50 [facility] tem ID: [id number] [address] , [place], [place], [id number] LOINC: 10557-0 Test Value Unit Reference Range Code Code System Flag Troponin I < 0.01 ng/ml L=0.00 H=0.04 32447-9 LOINC APTT - Collect Date/Time: 19:50 [facility] tem ID: [id number] [address] , [place], [place], [id number] LOINC: 07131-7 Test Value Unit Reference Range Code Code System Flag APTT 24.9 SEC L=24.0 H=32.0 39370-0 LOINC PROTIME - Collect Date/Time: 08/04/2022 19:50 [facility] tem ID: [id number] [address] , [place], [place], [id number] LOINC: 5902-2 Test Value Unit Reference Range Code Code System Flag Protime 9.9 SEC L=9.5 H=12.1 INR 0.9 6301-6 LOINC AMMONIA - Collect Date/Time: 08/04/2022 19:50 [facility] tem ID: [id number] [address] , [place], [place], [id number] LOINC: 81356-7 Test Value Unit Reference Range Code Code System Flag Ammonia < 9 umol/L L=9 H=33 24775-8 LOINC ETHANOL BLOOD MED (ALCOHOL) - Collect Date/Time: 08/04/2022 19:50 [facility] tem ID: [id number] [address] , [place], [place], [id number] LOINC: 5643-2 Test Value Unit Reference Range Code Code System Flag ETHANOL,MEDICAL 300 mg/dL L=0 H=10 5643-2 LOINC H MAGNESIUM - Collect Date/Alhaji e: 08/04/2022 19:[address] [facility] tem ID: [id number] [address] [facility], [place], [id number] LOINC: 39902-3 Test Value Unit Reference Range Code Code System Flag Magnesium 2.4 mg/dL L=1.7 H=2.2 97163-4 LOINC H Social History Type Status Start Date End Date Code Code Syst em Smoking History Current every day smoker 728906575 SNOMED CT Smoking History Never smoker (Never Smoked) 414315481 SNOMED CT Sex Male Hospital Discharge Instructions [...] System No Known Drug Allergies Moderate Active 270965717 SNOMED-CT Plan of Treatment No Data Found Encounters Encounter Diagnosis Start Date Code Code Sys tem Alcohol dependence with withdrawal, unspecified 2021 SNOMED-CT Personal Care Team Section Performer Name Performer Role Active Date Inactive Da te Discharge Summary Notes [facility] ER RECORD FINAL Scanned image
[2024-10-25] MEDS: ONDANSETRON 2 MG/ML inj 4 MG IVP (18:45)
[2024-10-25] MEDS: LORazepam 2 MG/ML inj 1 MG IV (18:45)
--- NOTE | 2024-10-25 18:45 | ED_ITS ---
HPI - Anxiety General Chief Complaint: Anxiety Stated Complaint: panic attacks, nausea Time Seen by Provider: 10/25/24 18:04 History of Present Illness HPI narrative: This 34-year-old male comes in reporting lots of anxiety with nausea. He states that he is in a outpatient program for alcohol abuse but also reports that he began taking alcohol recently. He reports lots of anxiety with nausea and upper epigastric abdominal pain. He states that he would prefer to receive some IV fluids along with medicine to treat his nausea and other symptoms. He has plans to return to the outpatient program tomorrow. Related Data Previous Rx's ?Medication ?Instructions ?Recorded lorazepam 1 mg tablet (Ativan) 1 mg PO BID PRN #6 tabs 10/25/24 ondansetron HCl 4 mg tablet 4 mg PO Q6H #10 tabs 10/25/24 Allergies Allergy/AdvReac Type Severity Reaction Status Date / Time No Known Drug Allergies Allergy Verified 04/08/24 13:59 Review of Systems Status of ROS: Reports: 10 or more systems reviewed and unremarkable except as noted in History and below Narrative: Constitutional: No fevers, no weight gain or loss. Eyes: No discharge. No vision changes. HENT: No congestion, no sore throat, no ear pain. Cardiovascular: No chest pain, no palpitations. Respiratory: No shortness of breath, no wheezes, no cough. Gastrointestinal: Upper epigastric abdominal pain. Genitourinary: No dysuria, no hematuria. Musculoskeletal: Normal range of motion. Skin: No rashes, no pruritis. Neurological: No dizziness, weakness, sensory change, speech change. Endo/Heme/Allergies: No bruising or bleeding. No polydipsia. Pysch: no suicidality, no insomnia. He reports lots of anxiety. Recent alcohol abuse. His last drink was this afternoon. All other systems reviewed and are negative. [facility] Social History Smoking Status: Current every day smoker What tobacco products do you use: cigarettes Smoking packs per day: 1 Smoking cigarettes per day: 20.0 Years smoked: 6 Smoking pack-years: 6.00 Do you use any of these nicotine containing products: None Second hand tobacco smoke exposure: Yes How often do you have a drink containing alcohol: 4 or more times a week How many standard drinks containing alcohol do you have on a typical day: 10 or more How often do you have six or more drinks on one occasion: Daily or almost daily AUDIT-C Alcohol total score: 12 Non-prescribed substance use: marijuana (any form) service: No Exam Narrative: Exam Narrative: Constitutional: Well-developed, well-nourished, no acute distress. HEENT: Normocephalic, atraumatic. Neck: Normal range of motion. Nontender. Supple. Heart: Regular. No murmurs. Normal rate. Intact distal pulses. Lungs: Clear to auscultation. No chest discomfort. No wheezes, rhonchi, or rales. Abdomen: Normal bowel sounds. Upper epigastric tenderness. No rebound tenderness. Genitalia: Deferred. Back: No midline tenderness. Normal range of motion. Extremities: Normal range of motion. No injury. Skin: Intact. No rash. Warm. No erythema or pallor. Neurologic: No altered sensation. No weakness. Alert and oriented. Psychiatric: No suicidality. No anxiety or depression. No insomnia. Nursing notes and vitals signs are reviewed. Const: Vital Signs, click to edit/add: Vital Signs - 24 hr 10/25/24 17:09 Temperature 98.5 F Pulse Rate [Pulse Oximeter] 108 H Respiratory Rate 22 Blood Pressure [Ri ght Upper Arm] 127/83 Pulse Oximetry 98 Oxygen Delivery Me thod Room Air Course Vital Signs Vital signs: Initial Vital Signs Temperature 98.5 F 10/25/24 17:09 Temperature Source Temporal Artery Scan 10/25/24 17:09 Pulse Rate 108 H 10/25/24 17:09 Respiratory Rate 22 10/25/24 17:09 Blood Pressure 127/83 10/25/24 17:09 Blood Pressure Mean 97 10/25/24 17:09 Blood Pressure Position Sitting 10/25/24 17:09 Pulse Oximetry 98 10/25/24 17:09 Oxygen Delivery Method Room Air 10/25/24 17:09 Vital Signs Temperature 98.5 F 10/25/24 17:09 Pulse Rate 108 H 10/25/24 17:09 Respiratory Rate 22 10/25/24 17:09 Blood Pressure 127/83 10/25/24 17:09 Pulse Oximetry 98 10/25/24 17:09 Oxygen Delivery Method Room Air 10/25/24 17:09 Temperature 98.5 F 10/25/24 17:09 Pulse Rate 108 H 10/25/24 17:09 Respiratory Rate 22 10/25/24 17:09 Blood Pressure 127/83 10/25/24 17:09 Pulse Oximetry 98 10/25/24 17:09 Oxygen Delivery Method Room Air 10/25/24 17:09 Medications Administered Medications: Generic Name Dose Route Start Last Admin Trade Name Freq PRN Reason Stop Dose Admin Sodium Chloride 500 mls @ 500 mls/hr 10/25/24 18:35 10/25/24 18:48 0.9 % Sodium Chloride 500 Ml IV 10/25/24 19:34 500 mls/hr .Q1H ONE Administration Discontinued Medications Generic Name Dose Route Start Last Admin Trade Name Freq PRN Reason Stop Dose Admin Lidocaine/Aluminum/Magnesium/Simeth 30 ml 10/25/24 18:45 10/25/24 18:59 Gi Cocktail (Visc Lido/Antacid) 30 Ml PO 10/25/24 18:46 30 ml ONCE ONE Administration Lorazepam 1 mg 10/25/24 18:35 10/25/24 18:45 Lorazepam 2 Mg/Ml Inj IV 10/25/24 18:36 1 mg ONCE ONE Administration Ondansetron HCl 4 mg 10/25/24 18:35 10/25/24 18:45 Ondansetron 2 Mg/Ml Inj IVP 10/25/24 18:36 4 mg ONCE ONE Administration MDM - Anxiety MDM Narrative Medical decision making narrative: This patient comes in with report of recent alcohol abuse and associated symptoms of anxiety and abdominal discomfort. He states that he is currently in an outpatient program in plans to continue again there tomorrow as normally scheduled. I did offer detox which the patient stated that he feels is best for in the resume his outpatient program. An IV was established and he did receive 500 mL of normal saline, Zofran 4 mg, and Ativan 1 mg. He also received an oral GI cocktail for symptomatic relief. He is okay to be discharged home. I did provide a prescription for Zofran 10 tablets and Ativan 6 tablets. He understands that detox is a better way of treating his recovery from alcohol however he states that he has not been drinking that long. He also understands that alcohol and Ativan do not mix very well. I advised him to return if worsening symptoms happen. Discharge Plan Discharge Clinical Impression: Acute anxiety, Alcohol abuse Patient Disposition: Home w/ Parent or Adult Condition: Stable Prescriptions: New lorazepam [Ativan] 1 mg tablet 1 mg PO BID PRNQty: 6 0RF ondansetron HCl 4 mg tablet 4 mg PO Q6H Qty: 10 0RF Follow Up/Referrals: Provider,Not a Local [Primary Care Provider] - Stand Alone Forms: infibond Info Instructions
[2024-10-25] MEDS: 0.9 % SODIUM CHLORIDE 500 ML 500 ML IV (18:48)
[2024-10-25] MEDS: GI COCKTAIL (VISC LIDO/ANTACID) 30 ML PO (18:59)
== END 2024-10-25 19:18 | disposition home or self-care (01) ==
PROVIDERS: Emergency Provider Emergency Medicine Emergency Medical Services
DX: F41.9 Anxiety disorder, unspecified (principal); F10.90 Alcohol use, unspecified, uncomplicated
CPT/HCPCS: 96374; 96375; 99284; A9270; J2060; J2405; J7030

== ENCOUNTER 2024-11-22 22:50 | Emergency (ER) | payer BC, SELFPAY ==
--- OUTSIDE RECORDS SUMMARY | 2024-11-22 22:53 | XMS_ITS | Clinical Summary ---
Author Organization [facility] Address [place], [place] [address] Care Team Providers Care Community Health Promoter Name Role Phone Katerina Jules Primary Care Provider Allergies No known active allergies Medications No known medications Active Problems Problem Noted Date Diagnosed Date KATHERINE (generalized anxiety disorder) 04/21/2024 Alcohol use disorder 01/12/2024 Resolved Problems Problem Noted Date Diagnosed Date Resolved Date Unspecified part of closed f racture of clavicle 01/05/2011 01/12/2024 Immunizations Name Administration Dates Next Due Tdap 01/06/2011 Social History Tobacco Use Types Packs/Day Years Used Date Smoking Tobacco: Every Day Cigarettes 0.5 12 Started: 2012 Smokeless Tobacco: Never Tobacco Cessation:Ready to Q uit: Not Asked; Counseling Given: Not Answered Alcohol Use Standard Drinks/Week Comments Yes 0 (1 standard drink = 0.6 oz pur e alcohol) pint weekly [facility] Utilities Answer Date Recorded Do you have trouble paying f or utilities (for example, heat, electricity, water, phone)? Yes 01/12/2024 PHQ-2 Answer Date Recorded PHQ-2 TOTAL SCORE 0 04/21/2024 Social Connections Answer Date Recorded Do you often feel lonely or isolated from those around you? 0 01/12/2024 Financial Resource Strain Answer Date R ecorded Difficulty of Paying Living Expenses 3 01/12/2024 Difficulty of Paying Living Expenses Not on file 01/12/2024 Food Insecurity Answer Date Recorded Do you worry your food will run out before you are able to buy more? 1 01/12/2024 Transportation Needs Answer Date Record ed Does lack of transportation keep you from medica l appointments? 1 01/12/2024 Does lack of transportation keep you from work, meetings or getting things that you need? 1 01/12/2024 Housing Stability Answer Date Recorded What is your housing situation today? 1 01/12/2024 Interpersonal Safety Answer Date Record ed Are you being hit, kicked, p ushed or yelled at (see row info)? 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 Gender Identity Not on file Sexual Orientation Not on file Obstetrics History Last Filed Vital Signs Vital Sign Reading Time Taken Comments Blood Pressure 132/86 04/21/2024 10:15 AM CDT Pulse 92 04/21/2024 10:15 AM CDT Temperature 36.4 C (97.6 F) 12/03/2023 10:30 PM LIQUOR MAKER Respiratory Rate 31 12/03/2023 11:30 PM LIQUOR MAKER Oxygen Saturation 99% 04/21/2024 10:15 AM CDT Inhaled Oxygen Concentration - - Weight 87.1 kg (192 lb) 04/21/2024 10:15 AM CDT Height 180.3 cm (5' 11) 01/12/2024 11:34 AM LIQUOR MAKER Body Mass Index 26.78 01/12/2024 11:34 AM LIQUOR MAKER Plan of Treatment Health Maintenance Due Date Last Done Comments Pneumococcal series for age 6-49 (1 of 2 - PCV) 01/17/1994 Tetanus booster 01/06/2021 01/06/2011 Lipids for age 35-44 01/17/2023 COVID-19 vaccine series ( season) 2024 Influenza for age 9-49 07/10/2024 BMI (ht and wt on same day) for age 18+ 01/11/2025 01/12/2024 Depression screening for age 12+ 04/21/2025 04/21/2024, 01/14/2024, 01/12/2024 Tdap Completed 01/06/2011 HIV for age 15-65 Completed 01/12/2024 Hepatitis C screening for age 18-79 Completed 01/11 Procedures Procedure Name Priority Date/Time Associated Diagnosis Comments ANTI HIV 1/2 Routine 01/12/2024 12:06 PM LIQUOR MAKER Screen for STD (sexually transmitted disease) ANTI HCV Routine 01/12/2024 12:06 PM LIQUOR MAKER Need for hepatitis C screening test from Last 3 Months or Most Recently Relevant to Health Maintenance Results * ANTI HCV (01/12/2024 12:06 PM LIQUOR MAKER) HEPATITIS C ANTIBODY Non-Reacti ve Non-React jared 01/12/2024 10:25 PM LIQUOR MAKER [facility] Comment:Please note, per www .CDC.gov: If a patient is known to be at high risk of HCV infection, or is symptomatic, and the physician's suspicion of HCV infection is high, HCV RNA testing is often employed and is of diagnostic value, even after an initial negative anti-HCV test result. Blood BLOOD SPECIMEN / Unknown Venipuncture / Unknown 01/12/2024 12:06 PM LIQUOR MAKER 01/12/2024 12:06 PM LIQUOR MAKER Katerina PINA SEND OUTS Final Result Performing Organization Address [facility] Co de Phone Number [facility] [address] [place] [address], * ANTI HIV 1/2 (01/12/2024 12:06 PM LIQUOR MAKER) Pathologist [facility] HIV-1/HIV-2 SCREEN Non-Reacti ve Non-Reacti ve 01/12/2024 10:26 PM LIQUOR MAKER [facility] Comment:HIV-1 p24 and HIV-1/ HIV-2 Ab Not Detected. Blood BLOOD SPECIMEN / Unknown Venipuncture / Unknown 01/12/2024 12:06 PM LIQUOR MAKER 01/12/2024 12:06 PM LIQUOR MAKER Katerina PINA SEND OUTS Final Result Performing Organization Address City/[facility]/ZIP Co de Phone Number [facility] [address] [place] [address], from Last 3 Months or Most Recently Relevant to Health Maintenance Advance Directives * Full Code (Latest Code Status on File) Date Activated Date Inactivated Comments 01/04/2011 9:55 PM 01/05/2011 5:34 PM Care Teams Community Health Promoter Relationship Specialty Start [place] [address] [place] [address] PCP - General Physician Retail Stocker 01/12/24
--- OUTSIDE RECORDS SUMMARY | 2024-11-22 22:53 | XMS_ITS | Clinical Summary ---
Author Organization [place] Address [facility] [place] [address] Care Team Providers Care Wire Stitcher Machine Name Role Phone [facility] Primary Care Provider Allergies No known active allergies Medications * This document contains information received from the source organization and may not represent a complete record from that organization. divalproex sodium delayed-release (DEPAKOTE) [address] tabletIndicatio ns:Alcohol use disorder, severe, dependence (H) 2 po bid x7d then 1 po bid 70 tablet 1 Active cloNIDine (CATAPRES) 0.1 MG tabletIndicatio ns:Alcohol use disorder, severe, dependence (H) Take 1 tablet (0.1 mg) by mouth every 6 hours as needed (withdrawal symptoms) 60 tablet 1 Active hydrOXYzine (VISTARIL) 25 MG capsuleIndicati ons:Alcohol use disorder, severe, dependence (H) Take 1-2 capsules (25-50 mg) by mouth 3 times daily as needed for anxiety 90 capsule 1 Active ondansetron (ZOFRAN) 8 MG tabletIndicatio ns:Alcohol use disorder, severe, dependence (H) Take 1 tablet (8 mg) by mouth every 8 hours as needed for nausea 30 tablet 1 Active chlordiazePOXID E (LIBRIUM) 25 MG capsule Take 1 capsule (25 mg) by mouth 3 times daily as needed for withdrawal 30 capsule 1 Active Family History Medical History Relation Comments [...] at Not on file 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 Gender Identity Not on file Sexual Orientation Not on file Last Filed Vital Signs Vital Sign Reading Time Taken Comments Blood Pressure 130/85 06/07/2022 6:10 PM CDT Pulse 65 06/07/2022 6:10 PM CDT Temperature 36.5 C (97.7 F) 06/07/2022 4:00 PM CDT Respiratory Rate 15 06/07/2022 6:10 PM CDT [...] OF HM ORDERS 1988 YEARLY PREVENTIVE VISIT 01/17/1991 HIV SCREENING 01/17/2003 HEPATITIS C SCREENING 01/17/2006 HEPATITIS B IMMUNIZATION (1 of 3 - 19+ 3-dose series) 01/17/2007 Pneumococcal Vaccine: Pediatrics (0 to 5 Years) and At-Risk Patients (6 to 49 Years) (1 of 2 - PCV) 01/17/2007 DTAP/TDAP/TD IMMUNIZATION (2 - Td or Tdap) 01/06/2021 01/06/2011 PHQ-2 (once per calendar year) 2023 COVID-19 Vaccine ( - season) 2024 INFLUENZA VACCINE (#1) 2024 GLUCOSE 06/07/2025 06/07/2022, 08/09, 06/18/2021, Additional history exists RSV VACCINE (1 - 1-dose 75+ series) 01/17/2063 HPV IMMUNIZATION Aged Out No longer e [...] - 50 U/L 06/07/2022 5:04 PM CDT LABORATORY GFR Estimate >90 >60 mL/min/1.7 3m2 06/07/2022 5:04 PM CDT LABORATORY Comment:Effective October 102020 eGFRcr in adults is calculated using the 2020 CKD-EPI creatinine equation which includes age and gender (Zuleyma et al., NEJM, DOI: 10.1056/MHXUqk2957113) Blood STRUCTURE OF RIGHT UPPER LIMB / Unknown Venipuncture / Unknown 06/07/2022 4:39 PM CDT 06/07/2022 4:43 PM CDT us Brad Cummings MD LAB - BLOOD ORDERABLES Fi nal Result LABORATORY [facility] [address] [facility] (1st floor, no room number) [place] [address], [facility] [phone] from Last 3 Months or Most Recently Relevant to Health Maintenance Care Teams Wire Stitcher Machine Relationship Specialty Start Date End Date Clinic - [facility] [address] [place] [address] PCP - General Internal Medicine 12/18/19
--- OUTSIDE RECORDS SUMMARY | 2024-11-22 22:53 | XMS_ITS | Encounter Summary ---
Author Organization [place] Address [address] [place] [address]. 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
--- OUTSIDE RECORDS SUMMARY | 2024-11-22 22:53 | XMS_ITS | Referral Summary ---
Author Organization [place] Address [facility] 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 Gender Identity Not on file Sexual Orientation [...] and gender (Zuleyma et al., NEJ, DOI: 10.1056/JHOWcx1472962) Blood STRUCTURE OF RIGHT UPPER LIMB / Unknown Venipuncture / Unknown 06/07/2022 4:39 PM CDT 06/07/2022 4:43 PM CDT us Brad Cummings MD LAB - BLOOD ORDERABLES Fi nal Result LABORATORY [facility] [address] [facility] Lab (1st floor, no room number) [place] [address], [facility] [phone] from Last 3 Months or Most Recently Relevant to Health Maintenance Care Teams Pressure Dispatcher Relationship Specialty Start Date End Date Clinic - [address] [place] [address] PCP - General Internal Medicine 12/18/19
--- OUTSIDE RECORDS SUMMARY | 2024-11-22 22:53 | XMS_ITS ---
Author Organization Unknown Address [facility] [address], [place] [phone] Phone Care Team Providers Care Crown And Bridge Technician Name Role Phone Unavailable Xwatchlist Unavailable FABBY COUCH Attending Unavailable Results CBC WITH DIFF - Collect Date /Time: 08/04/2022 19:50 [facility] tem ID: [id number] [address] [facility], [id number] LOINC: 90892-9 Test Value Unit Reference Range Code Code [...] 1.40 10^3/uL L=0.90 H=2.90 731-0 LOINC Absolute Seneca 0.82 10^3/uL L=0.30 H=0.90 742-7 LOINC Absolute Eos 0.05 10^3/uL L=0.05 H=0.50 711-2 LOINC Absolute Baso 0.05 10^3/uL L=0.00 H=0.30 704-7 LOINC Absolute IG 0.03 10^3uL 38484-6 LOINC %Seg 64.4 % 769-0 LOINC %Lymphs 21.1 % 737-7 LOINC %Seneca 12.4 % 744-3 LOINC %Eos 0.8 % 714-6 LOINC %Baso 0.8 % 707-0 LOINC %IG 0.5 % L=0.0 H=5.0 13594-7 LOINC Manual Diff Not Indicated Rbc Morph PANEL COMP METABOLIC - Colle ct Date/Time: 08/04/2022 19:50 [facility] tem ID: [id number] [address] , [place], [place], [id number] LOINC: 82942-6 Test Value Unit Reference Range Code Code System Flag Glucose 114 mg/dL L=70 H=100 2345-7 LOINC H Bun 11 mg/dL L=9 H=21 3094-0 LOINC Creatinine 0.9 mg/dL L=0.8 H=1.5 2160-0 LOINC AGE 32 88937-5 LOINC eGFR 97 ml/min/m^2 L=60 H=130 80295-0 LOINC Sodium 145 mmol/L L=137 H=145 2951-2 LOINC Potassium 3.9 mmol/L L=3.5 H=5.0 2823-3 LOINC Chloride 108 mmol/L L=98 H=107 2075-0 LOINC H CO2 24 mmol/L L=22 H=31 2028-9 LOINC Anion Gap 17 1863-0 LOINC Calcium 9.5 mg/dL L=8.4 H=10.2 76021-6 LOINC AST 64 u/L L=17 H=59 1920-8 LOINC H ALT 66 u/L L=0 H=50 1742-6 LOINC H Alk Phos 77 u/L L=38 H=126 6768-6 LOINC Bili Total 0.2 mg/dL L=0.2 H=1.3 1975-2 LOINC Albumin 4.7 g/dL L=3.5 H=5.0 1751-7 LOINC T Protein 7.2 g/dL L=6.3 H=8.2 2885-2 LOINC TROPONIN I - Collect Date/Ti me: 08/04/2022 19:50 [facility] tem ID: [id number] [address] , [place], [place], [id number] LOINC: 62503-4 Test Value Unit Reference Range Code Code System Flag Troponin I < 0.01 ng/ml L=0.00 H=0.04 37546-4 LOINC APTT - Collect Date/Time: 19:50 [facility] tem ID: [id number] [address] , [place], [place], [id number] LOINC: 24713-1 Test Value Unit Reference Range Code Code System Flag APTT 24.9 SEC L=24.0 H=32.0 97872-4 LOINC PROTIME - Collect Date/Time: 08/04/2022 19:50 [facility] tem ID: [id number] [address] , [place], [place], [id number] LOINC: 5902-2 Test Value Unit Reference Range Code Code System Flag Protime 9.9 SEC L=9.5 H=12.1 INR 0.9 6301-6 LOINC AMMONIA - Collect Date/Time: 08/04/2022 19:50 [facility] tem ID: [id number] [address] , [place], [place], [id number] LOINC: 90762-7 Test Value Unit Reference Range Code Code System Flag Ammonia < 9 umol/L L=9 H=33 39126-5 LOINC ETHANOL BLOOD MED (ALCOHOL) - Collect Date/Time: 08/04/2022 19:50 [facility] tem ID: [id number] [address] , [place], [place], [id number] LOINC: 5643-2 Test Value Unit Reference Range Code Code System Flag ETHANOL,MEDICAL 300 mg/dL L=0 H=10 5643-2 LOINC H MAGNESIUM - Collect Date/Alhaji e: 08/04/2022 19:50 [facility] tem ID: [id number] [address] [facility], [place], [id number] LOINC: 78015-4 Test Value Unit Reference Range Code Code System Flag Magnesium 2.4 mg/dL L=1.7 H=2.2 93409-1 LOINC H Social History Type Status Start Date End Date Code Code Syst em Smoking History Current every day smoker 949935059 SNOMED CT Smoking History Never smoker (Never Smoked) 805116331 SNOMED CT Sex Male Hospital Discharge Instructions [...] System No Known Drug Allergies Moderate Active 513172264 SNOMED-CT Plan of Treatment No Data Found Encounters Encounter Diagnosis Start Date Code Code Sys tem Alcohol dependence with withdrawal, unspecified 2021 SNOMED-CT Personal Care Team Section Performer Name Performer Role Active Date Inactive Da te Discharge Summary Notes [facility] ER RECORD FINAL Scanned image
--- OUTSIDE RECORDS SUMMARY | 2024-11-22 22:53 | XMS_ITS | Continuity of Care Document ---
Author Name NwKOKON User WilliamMN[facility] Address Unknown Organization Unknown Address Unknown Procedures FILTER APPLIED:Only known Procedures with Onset Date within the last 5 years Procedure Date Procedure Provider Aureliano delgado Information Status ELECTROCARDIOGRAM TRACING (90118) Completed C-REACTIVE PROTEIN (90625) Completed COMPLETE CBC W/AUTO DIFF WBC (21076) Completed ASSAY SPEC XCP UR BREATH IA (29730) Completed MEASURE BLOOD OXYGEN LEVEL (83905) Completed DRUG ASSAY SALICYLATE (25385) Completed DRUG ASSAY ACETAMINOPHEN (71541) Completed METABOLIC PANEL TOTAL CA (83571) Completed ROUTINE VENIPUNCTURE (22558) Completed DRUG TEST PRSMV INSTRMNT (82922) Completed EMERGENCY DEPT VISIT MOD MDM (84370) Completed TX/PRO/DX INJ NEW DRUG ADDON (99984) Completed THER/PROPH/DIAG INJ IV PUSH (00261) Completed ASSAY OF TROPONIN QUANT (66330) Completed COMPLETE CBC W/AUTO DIFF WBC (65678) Completed ASSAY OF MAGNESIUM (13162) Completed ASSAY OF LIPASE (20727) Completed COMPREHEN METABOLIC PANEL (45133) Completed ROUTINE VENIPUNCTURE (85449) Completed X-RAY EXAM CHEST 2 VIEWS (02741) Completed DRUG TEST PRSMV INSTRMNT (77071) Completed Encounters FILTER APPLIED:Only known Encounters with Admission Date within the last 5 years Encounter Location Admission Discharge Billing Code Environmental Research Scientist Patricia villegas Emergency [facility] Emergency [facility] Emergency [facility] Out[facility]
[2024-11-22 23:00] VITALS: BP 110/65; PULSE 99; RESP 18; TEMP 36.7; O2SAT 99; BMI 25.8
--- NOTE | 2024-11-22 23:25 | ED.ALCOHOL ---
HPI - Alcohol General Time Seen by Provider: 23:25 <Estela Larson MD - Last Filed: 11/24/24 08:56> Date Seen: 11/22/24 <Estela Larson MD - Last Filed: 11/24/24 08:56> Chief Complaint: Alcohol/Intoxication <Estela Larson MD - Last Filed: 11/24/24 08:56> Stated Complaint: Withdrawal from alchohol <Estela Larson MD - Last Filed: 11/24/24 08:56> Time Seen by Provider: 11/22/24 23:24 <Estela Larson MD - Last Filed: 11/24/24 08:56> Source: patient, RN notes reviewed and old records reviewed <Estela Larson MD - Last Filed: 11/24/24 08:56> Mode of arrival: ambulatory <Estela Larson MD - Last Filed: 11/24/24 08:56> Limitations: no limitations <Estela Larson MD - Last Filed: 11/24/24 08:56> History of Present Illness HPI narrative: This 34-year-old male is coming in stating that his withdrawals are very bad. He is in an outpatient alcohol treatment program but admits he has been drinking. He did not go the last 2 days because he has been drinking. [facility] am seeing him at 11:36 p.m.. He states he feels anxious and hold his hands up and shakes them, states he has been shaky. He is eating tacos when I come into the room. He brought in food with him. He told nursing staff that he needed a banana bag. He tells me that he wants some Valium and just wants to go to sleep. He states if he eats then he can drink some. Denies any abdominal pain at this time, no nausea or vomiting. He denies any auditory or visual hallucinations. He has had no fevers, no diarrhea. He was in on October 25 complaining of anxiety and nausea, admitted that he had been drinking alcohol despite being in his outpatient treatment program. Ag was endorses that he has basically been drinking consistently since that time. He did receive a GI cocktail at that visit, lorazepam IV, Zofran IV and small amount of saline. He declined detox at that time. He was discharged with 6 tablets of Ativan and 10 tablets of Zofran from that ED visit. 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 <Estela Larson MD - Last Filed: 11/24/24 08:56> Chronic alcohol use: Yes <Estela Larson MD - Last Filed: 11/24/24 08:56> Previous visits for alcohol intoxication: Yes <Estela Larson MD - Last Filed: 11/24/24 08:56> Recent trauma: No <Estela Larson MD - Last Filed: 11/24/24 08:56> Related Data Home Medications: Home Medications ?Medication ?Instructions ?Recorded ?Confirmed No Known Home Medications 11/22/24 11/22/24 <Estela Larson MD - Last Filed: 11/24/24 08:56> Allergies/Adverse Reactions: Allergies Allergy/AdvReac Type Severity Reaction Status Date / Time No Known Drug Allergies Allergy Verified 11/22/24 23:00 <Estela Larson MD - Last Filed: 11/24/24 08:56> Review of Systems Status of ROS Reports: 6 or more systems reviewed and unremarkable except as noted in History and below <Estela Larson MD - Last Filed: 11/24/24 08:56> PFSH PFSH Medical History: Medical History (Updated 11/23/24 @ 01:58 by Edison Roldan RN) Chronic alcohol abuse ?F10.10 - Alcohol abuse, uncomplicated (ICD-10) <Estela Larson MD - Last Filed: 11/24/24 08:56> Surgical History: Surgical History (Updated 11/23/24 @ 01:58 by Edison Roldan RN) No significant past surgical history <Estela Larson MD - Last Filed: 11/24/24 08:56> Social History: Social History Smoking Status: Current every day smoker What tobacco products do you use: cigarettes Smoking packs per day: 1 Smoking cigarettes per day: 20.0 Years smoked: 6 Smoking pack-years: 6.00 Do you use any of these nicotine containing products: None Second hand tobacco smoke exposure: Yes How often do you have a drink containing alcohol: 4 or more times a week How many standard drinks containing alcohol do you have on a typical day: 10 or more How often do you have six or more drinks on one occasion: Daily or almost daily AUDIT-C Alcohol total score: 12 Non-prescribed substance use: marijuana (any form) service: No <Estela Larson MD - Last Filed: 11/24/24 08:56> Exam Const: Vital Signs, click to edit/add: Vital Signs - 24 hr 11/22/24 23:00 Temperature 98.0 F Pulse Rate [Right Pulse Oximeter] 99 Respiratory Rate 18 Blood Pressure [Le ft Upper Arm] 110/65 Pulse Oximetry 99 Oxygen Delivery Me thod Room Air This 34-year-old male is eating tacos when I come into his room, seems altered and likely intoxicated due to alcohol. He is conversive and pleasant with me however. Pupils equal round reactive, conjugate gaze, sclera slightly injected but no periorbital swelling or erythema, no discharge from his eyes. Speech is normal. Face atraumatic. Lungs are clear, good air entry, no wheezing or crackles. CV regular rate and rhythm, no murmur, normal S1-S2, no S3-S4. Abdomen is soft, nontender, nondistended, no organomegaly, rebound or guarding. He has no baseline tremors noted. He does follow commands. He does hold his hands up and flap them purposefully to simulate tremors. He is definitely overall pleasant during the interaction. <Estela Larson MD - Last Filed: 11/24/24 08:56> Vital Signs, click to edit/add: Vital Signs - 24 hr 11/22/24 23:00 Temperature 98.0 F Pulse Rate [Right Pulse Oximeter] 99 Respiratory Rate 18 Blood Pressure [Le ft Upper Arm] 110/65 Pulse Oximetry 99 Oxygen Delivery Me thod Room Air <Sanjuanita Brooks MD - Last Filed: 11/23/24 01:55> Documenting provider has reviewed patient's vital signs: yes <Estela Larson MD - Last Filed: 11/24/24 08:56> Course Course ED Course: Will give him 5 mg oral Valium but reviewed with him his vitals are quite reassuring. Will get full complement of labs. He does ask me if he is going to tonight, reviewed with him that I certainly hope not and looking at him right now I am reassured that he looks well. He is eating and thus does not need IV fluids he can replenish orally. Will give him oral multivitamin with oral thiamine and folate. He will be observed on pulse oximetry. I do not believe him to be in significant withdrawal yet. Have discussed with him that I do not send patients that are actively drinking home with benzodiazepines. <Estela Larson MD - Last Filed: 11/24/24 08:56> Reevaluation(s) Time of Reevaluation #1: 00:20 <Estela Larson MD - Last Filed: 11/24/24 08:56> Reevaluation #1: Went back in to check on Ag, review his labs. His liver enzymes actually look remarkably good at this time. He was on the phone calling a friend to get a ride home when I walked into the room. He stated that he wanted some pills for anxiety to go home with. As I had reviewed with him before, I do not agree with sending patient's home with benzodiazepines that are actively drinking. Discussed the concern for respiratory depression. I will be happy to send some Vistaril tablets for him, will use [facility] tonight as pharmacies are closed. <Estela Larson MD - Last Filed: 11/24/24 08:56> Time of Reevaluation #2: 00:31 <Estela Larson MD - Last Filed: 11/24/24 08:56> Reevaluation #2: I can hear patient yelling and swearing. He obviously is unhappy about not getting Ativan to go home with. He is getting hydroxyzine which nursing staff has reviewed with him. Of note, his last systolic blood pressure I believe was 108 when I was in talking to him about discharge. His vitals have not shown any concern for active withdrawal. <Estela Larson MD - Last Filed: 11/24/24 08:56> Reevaluation #3: Dr. Brooks- I assumed care from outgoing evening partner. Unfortunately, of placed apartment was not helpful for securing a ride home for patient. He is medically cleared to leave with a responsible adult from the ED but because of the extreme frigid cold and his intoxication, I cannot let him leave on his own free will. There are no taxis running this time of night, no over Services, etc.. Please are declining to give him a ride to [facility]. I do not have enough EMS availability to cover this. Patient will need to wait until there are services available at 7:00 a.m. or he may continue calling family and friends for a ride. Will give another 5 mg of oral Valium and a phenobarbital 130 mg load p.o. x1. Update: Patient was able to find a ride. We did not need to give him the phenobarbital. He requested Zofran. This is given p.o. x1 and a prescription from [facility]. Discharged home with responsible adult. <Sanjuanita Brooks MD - Last Filed: 11/23/24 01:55> Vital Signs Vital signs: Initial Vital Signs Temperature 98.0 F 11/22/24 23:00 Temperature Source Temporal Artery Scan 11/22/24 23:00 Pulse Rate 99 11/22/24 23:00 Respiratory Rate 18 11/22/24 23:00 Blood Pressure 110/65 11/22/24 23:00 Blood Pressure Mean 80 11/22/24 23:00 Blood Pressure Position Sitting 11/22/24 23:00 Pulse Oximetry 99 11/22/24 23:00 Oxygen Delivery Method Room Air 11/22/24 23:00 Vital Signs Temperature 98.0 F 11/22/24 23:00 Pulse Rate 99 11/22/24 23:00 Respiratory Rate 18 11/22/24 23:00 Blood Pressure 110/65 11/22/24 23:00 Pulse Oximetry 99 11/22/24 23:00 Oxygen Delivery Method Room Air 11/22/24 23:00 Temperature 98.0 F 11/23/24 02:03 Pulse Rate 82 11/23/24 02:03 Respiratory Rate 18 11/23/24 02:03 Blood Pressure 146/100 H 11/23/24 02:03 Pulse Oximetry 100 11/23/24 01:45 Oxygen Delivery Method Room Air 11/23/24 01:45 <Estela Larson MD - Last Filed: 11/24/24 08:56> Initial Vital Signs Temperature 98.0 F 11/22/24 23:00 Temperature Source Temporal Artery Scan 11/22/24 23:00 Pulse Rate 99 11/22/24 23:00 Respiratory Rate 18 11/22/24 23:00 Blood Pressure 110/65 11/22/24 23:00 Blood Pressure Mean 80 11/22/24 23:00 Blood Pressure Position Sitting 11/22/24 23:00 Pulse Oximetry 99 11/22/24 23:00 Oxygen Delivery Method Room Air 11/22/24 23:00 Vital Signs Temperature 98.0 F 11/22/24 23:00 Pulse Rate 99 11/22/24 23:00 Respiratory Rate 18 11/22/24 23:00 Blood Pressure 110/65 11/22/24 23:00 Pulse Oximetry 99 11/22/24 23:00 Oxygen Delivery Method Room Air 11/22/24 23:00 Temperature 98.0 F 11/23/24 02:03 Pulse Rate 82 11/23/24 02:03 Respiratory Rate 18 11/23/24 02:03 Blood Pressure 146/100 H 11/23/24 02:03 Pulse Oximetry 100 11/23/24 01:45 Oxygen Delivery Method Room Air 11/23/24 01:45 <Sanjuanita Brooks MD - Last Filed: 11/23/24 01:55> Medications Administered Medications: Discontinued Medications Generic Name Dose Route Start Last Admin Trade Name Freq PRN Reason Stop Dose Admin Diazepam 5 mg 11/22/24 23:31 11/22/24 23:38 Diazepam 5 Mg Tablet PO 11/22/24 23:32 5 mg ONCE ONE Administration Diazepam 5 mg 11/23/24 01:20 11/23/24 01:55 Diazepam 5 Mg Tablet PO 11/23/24 01:21 Not Given ONCE ONE Folic Acid 1 mg 11/22/24 23:31 11/22/24 23:38 Folic Acid 1 Mg Tablet PO 11/22/24 23:32 1 mg ONCE ONE Administration Multivitamins/Minerals 1 tab 11/22/24 23:31 11/22/24 23:38 Multivitamin/Minerals 1 Tablet PO 11/22/24 23:32 1 tab ONCE ONE Administration Ondansetron HCl 4 mg 11/23/24 01:48 11/23/24 01:55 Ondansetron Odt 4 Mg Tab PO 11/23/24 01:49 4 mg ONCE ONE Administration Phenobarbital 129.6 mg 11/23/24 01:17 11/23/24 01:55 Phenobarbital 32.4 Mg Tablet PO 11/23/24 01:18 Not Given ONCE ONE Thiamine HCl 100 mg 11/22/24 23:31 11/22/24 23:38 Thiamine 100 Mg Tablet PO 11/22/24 23:32 100 mg ONCE ONE Administration <Estela Larson MD - Last Filed: 11/24/24 08:56> Discontinued Medications Generic Name Dose Route Start Last Admin Trade Name Jany PRN Reason Stop Dose Admin Diazepam 5 mg 11/22/24 23:31 11/22/24 23:38 Diazepam 5 Mg Tablet PO 11/22/24 23:32 5 mg ONCE ONE Administration Diazepam 5 mg 11/23/24 01:20 11/23/24 01:55 Diazepam 5 Mg Tablet PO 11/23/24 01:21 Not Given ONCE ONE Folic Acid 1 mg 11/22/24 23:31 11/22/24 23:38 Folic Acid 1 Mg Tablet PO 11/22/24 23:32 1 mg ONCE ONE Administration Multivitamins/Minerals 1 tab 11/22/24 23:31 11/22/24 23:38 Multivitamin/Minerals 1 Tablet PO 11/22/24 23:32 1 tab ONCE ONE Administration Ondansetron HCl 4 mg 11/23/24 01:48 11/23/24 01:55 Ondansetron Odt 4 Mg Tab PO 11/23/24 01:49 4 mg ONCE ONE Administration Phenobarbital 129.6 mg 11/23/24 01:17 11/23/24 01:55 Phenobarbital 32.4 Mg Tablet PO 11/23/24 01:18 Not Given ONCE ONE Thiamine HCl 100 mg 11/22/24 23:31 11/22/24 23:38 Thiamine 100 Mg Tablet PO 11/22/24 23:32 100 mg ONCE ONE Administration <Sanjuanita Brooks MD - Last Filed: 11/23/24 01:55> MDM - Alcohol Lab Data Attestation: I reviewed the patient's lab results. <Estela Larson MD - Last Filed: 11/24/24 08:56> Labs: Lab Results 11/22/24 Range/Units 23:45 WBC 6.19 (4.50-11.00) K/uL RBC 5.04 (4.30-5.90) m/uL Hgb 16.3 (13.5-17.5) gm/dL Hct 45.3 (37.0-53.0) % MCV 90 (80-100) fL MCH 32 (26-34) pg MCHC 36 (32-36) gm/dL RDW Coeff of Magdalena 12.0 (11.5-15.5) % Plt Count 346 (140-440) K/uL Neut % (Auto) 46.7 (42.0-72.0) % Lymph % (Auto) 43.6 (20-44) % [place] % (Auto) 7.6 (0.0-11.0) % Eos % (Auto) 1.3 (0.0-7.0) % Baso % (Auto) 0.3 (0.0-3.0) % Neut # (Auto) 2.89 (1.7-7.0) K/uL Lymph # (Auto) 2.70 (0.90-2.90) K/uL [place] # (Auto) 0.50 (0.00-0.90) K/UL Eos # (Auto) 0.08 (0.00-0.50) K/uL Baso # (Auto) 0.02 (0.00-0.30) K/uL Abs Immat Gran (auto) 0.03 (0.00-0.30) K/uL Imm/Tot Granulo (auto) 0.5 % INR 0.85 L (0.91-1.10) APTT 25 (23-33) Seconds Sodium 145 (135-149) mmol/L Potassium 4.0 (3.6-5.1) mmol/L Chloride 108 (96-114) mmol/L Carbon Dioxide 25 (20-32) mmol/L Anion Gap 12 (7-15) mEq/L BUN 13 (5-24) mg/dL Creatinine 1.1 (0.5-1.5) mg/dL Estimated Creat Clear 101.90 Estimated GFR 89 ml/min Glucose 101 (60-115) mg/dL Calcium 9.1 (8.4-10.6) mg/dL Total Bilirubin 0.4 (0.1-1.5) mg/dL Direct Bilirubin 0.3 (0.0-0.5) mg/dL AST 40 H (12-35) U/L ALT 35 (4-50) U/L Alkaline Phosphatase 93 (40-150) U/L Total Protein 7.6 (6.0-8.3) g/dL Albumin 4.5 (3.3-5.0) g/dL Lipase 202 (23-300) U/L Ethyl Alcohol 0.39 H* (0.01-0.03) % <Estela Larson MD - Last Filed: 11/24/24 08:56> Lab Results 11/22/24 Range/Units 23:45 WBC 6.19 (4.50-11.00) K/uL RBC 5.04 (4.30-5.90) m/uL Hgb 16.3 (13.5-17.5) gm/dL Hct 45.3 (37.0-53.0) % MCV 90 (80-100) fL MCH 32 (26-34) pg MCHC 36 (32-36) gm/dL RDW Coeff of Magdalena 12.0 (11.5-15.5) % Plt Count 346 (140-440) K/uL Neut % (Auto) 46.7 (42.0-72.0) % Lymph % (Auto) 43.6 (20-44) % [place] % (Auto) 7.6 (0.0-11.0) % Eos % (Auto) 1.3 (0.0-7.0) % Baso % (Auto) 0.3 (0.0-3.0) % Neut # (Auto) 2.89 (1.7-7.0) K/uL Lymph # (Auto) 2.70 (0.90-2.90) K/uL [place] # (Auto) 0.50 (0.00-0.90) K/UL Eos # (Auto) 0.08 (0.00-0.50) K/uL Baso # (Auto) 0.02 (0.00-0.30) K/uL Abs Immat Gran (auto) 0.03 (0.00-0.30) K/uL Imm/Tot Granulo (auto) 0.5 % INR 0.85 L (0.91-1.10) APTT 25 (23-33) Seconds Sodium 145 (135-149) mmol/L Potassium 4.0 (3.6-5.1) mmol/L Chloride 108 (96-114) mmol/L Carbon Dioxide 25 (20-32) mmol/L Anion Gap 12 (7-15) mEq/L BUN 13 (5-24) mg/dL Creatinine 1.1 (0.5-1.5) mg/dL Estimated Creat Clear 101.90 Estimated GFR 89 ml/min Glucose 101 (60-115) mg/dL Calcium 9.1 (8.4-10.6) mg/dL Total Bilirubin 0.4 (0.1-1.5) mg/dL Direct Bilirubin 0.3 (0.0-0.5) mg/dL AST 40 H (12-35) U/L ALT 35 (4-50) U/L Alkaline Phosphatase 93 (40-150) U/L Total Protein 7.6 (6.0-8.3) g/dL Albumin 4.5 (3.3-5.0) g/dL Lipase 202 (23-300) U/L Ethyl Alcohol 0.39 H* (0.01-0.03) % <Sanjuanita Brooks MD - Last Filed: 11/23/24 01:55> Discharge Plan Discharge Clinical Impression: Alcohol use disorder <Estela Larson MD - Last Filed: 11/24/24 08:56> Patient Disposition: Home, Self-Care <Estela Larson MD - Last Filed: 11/24/24 08:56> Condition: Stable <Estela Larson MD - Last Filed: 11/24/24 08:56> Instructions: Alcohol Use Disorder (ED) <Estela Larson MD - Last Filed: 11/24/24 08:56> Additional Instructions: Can use hydroxyzine 25mg every 6-8 hours as needed for anxiety. It is not recommended for people actively using alcohol to be using benzodiazepines like Valium or Ativan. Recommend that you continue with treatment, you may need to consider inpatient treatment if you continue drinking. <Estela Larson MD - Last Filed: 11/24/24 08:56> Activity Level: Activity as Tolerated <Estela Larson MD - Last Filed: 11/24/24 08:56> Activity as Tolerated <Sanjuanita Brooks MD - Last Filed: 11/23/24 01:55> Prescriptions: No Action No Known Home Medications <Estela Larson MD - Last Filed: 11/24/24 08:56> Follow Up/Referrals: Provider,Not a Local [Primary Care Provider] - <Estela Larson MD - Last Filed: 11/24/24 08:56> Stand Alone Forms: MyHealth Info Instructions <Estela Larson MD - Last Filed: 11/24/24 08:56>
[2024-11-22 23:32] VITALS: O2SAT 99
[2024-11-22] MEDS: FOLIC ACID 1 MG TABLET PO (23:38)
[2024-11-22] MEDS: diazePAM 5 MG TABLET PO (23:38)
[2024-11-22] MEDS: MULTIVITAMIN/MINERALS 1 TABLET 1 TAB PO (23:38)
[2024-11-22] MEDS: THIAMINE 100 MG TABLET PO (23:38)
--- OUTSIDE RECORDS SUMMARY | 2024-11-22 23:54 | XMS_ITS | Referral Summary ---
Author Organization [place] Address [facility] 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 Gender Identity Not on file Sexual Orientation [...] and gender (Zuleyma et al., NEJ, DOI: [id number]) Blood STRUCTURE OF RIGHT UPPER LIMB / Unknown Venipuncture / Unknown 06/07/2022 4:39 PM CDT 06/07/2022 4:43 PM CDT us Brad Cummings MD LAB - BLOOD ORDERABLES Fi nal Result LABORATORY [facility] [address] [facility] (1st floor, no room number) [place] [address], [facility] [phone] from Last 3 Months or Most Recently Relevant to Health Maintenance Care Teams Casting Assistant Relationship Specialty Start Date End Date Clinic - [address] [place] [address] PCP - General Internal Medicine 12/18/19
--- OUTSIDE RECORDS SUMMARY | 2024-11-22 23:54 | XMS_ITS | Continuity of Care Document ---
Author Name NwKOKON User [facility] Address Unknown Organization Unknown Address Unknown Procedures FILTER APPLIED:Only known Procedures with Onset Date within the last 5 years Procedure Date Procedure Provider Aureliano delgado Information Status ELECTROCARDIOGRAM TRACING (57278) Completed C-REACTIVE PROTEIN (26155) Completed COMPLETE CBC W/AUTO DIFF WBC (21246) Completed ASSAY SPEC XCP UR BREATH IA (94984) Completed MEASURE BLOOD OXYGEN LEVEL (30035) Completed DRUG ASSAY SALICYLATE (17065) Completed DRUG ASSAY ACETAMINOPHEN (71181) Completed METABOLIC PANEL TOTAL CA (86576) Completed ROUTINE VENIPUNCTURE (39277) Completed DRUG TEST PRSMV INSTRMNT (60944) Completed EMERGENCY DEPT VISIT MOD MDM (46094) Completed TX/PRO/DX INJ NEW DRUG ADDON (94091) Completed THER/PROPH/DIAG INJ IV PUSH (61838) Completed ASSAY OF TROPONIN QUANT (43859) Completed COMPLETE CBC W/AUTO DIFF WBC (51542) Completed ASSAY OF MAGNESIUM (44706) Completed ASSAY OF LIPASE (20974) Completed COMPREHEN METABOLIC PANEL (85931) Completed ROUTINE VENIPUNCTURE (12159) Completed X-RAY EXAM CHEST 2 VIEWS (64813) Completed DRUG TEST PRSMV INSTRMNT (85159) Completed Encounters FILTER APPLIED:Only known Encounters with Admission Date within the last 5 years Encounter Location Admission Discharge Billing Code Publicity Consultant Patricia villegas Emergency Jefry Sarmiento Emergency Todd santana Emergency Ulises Gunderson Emergency Ulises Gunderson Outpatient Ulises Gunderson
--- OUTSIDE RECORDS SUMMARY | 2024-11-22 23:54 | XMS_ITS ---
Author Organization Unknown Address [facility] [place], [place] [id number] Phone Care Team Providers Care Radiographic Technologist Name Role Phone Unavailable Xwatchlist Unavailable FABBY COUCH Attending Unavailable Results CBC WITH DIFF - Collect Date /Time: 08/04/2022 19:50 [facility] tem ID: [id number] [address] [facility], [id number] LOINC: 31840-2 Test Value Unit Reference Range Code Code [...] 1.40 10^3/uL L=0.90 H=2.90 731-0 LOINC Absolute Valley 0.82 10^3/uL L=0.30 H=0.90 742-7 LOINC Absolute Eos 0.05 10^3/uL L=0.05 H=0.50 711-2 LOINC Absolute Baso 0.05 10^3/uL L=0.00 H=0.30 704-7 LOINC Absolute IG 0.03 10^3uL 23939-8 LOINC %Seg 64.4 % 769-0 LOINC %Lymphs 21.1 % 737-7 LOINC %Valley 12.4 % 744-3 LOINC %Eos 0.8 % 714-6 LOINC %Baso 0.8 % 707-0 LOINC %IG 0.5 % L=0.0 H=5.0 15084-4 LOINC Manual Diff Not Indicated Rbc Morph PANEL COMP METABOLIC - Colle ct Date/Time: 08/04/2022 19:50 [facility] tem ID: [id number] [address] , [place], [id number] LOINC: 79283-9 Test Value Unit Reference Range Code Code System Flag Glucose 114 mg/dL L=70 H=100 2345-7 LOINC H Bun 11 mg/dL L=9 H=21 3094-0 LOINC Creatinine 0.9 mg/dL L=0.8 H=1.5 2160-0 LOINC AGE 32 15086-6 LOINC eGFR 97 ml/min/m^2 L=60 H=130 31460-0 LOINC Sodium 145 mmol/L L=137 H=145 2951-2 LOINC Potassium 3.9 mmol/L L=3.5 H=5.0 2823-3 LOINC Chloride 108 mmol/L L=98 H=107 2075-0 LOINC H CO2 24 mmol/L L=22 H=31 2028-9 LOINC Anion Gap 17 1863-0 LOINC Calcium 9.5 mg/dL L=8.4 H=10.2 67408-8 LOINC AST 64 u/L L=17 H=59 1920-8 LOINC H ALT 66 u/L L=0 H=50 1742-6 LOINC H Alk Phos 77 u/L L=38 H=126 6768-6 LOINC Bili Total 0.2 mg/dL L=0.2 H=1.3 1975-2 LOINC Albumin 4.7 g/dL L=3.5 H=5.0 1751-7 LOINC T Protein 7.2 g/dL L=6.3 H=8.2 2885-2 LOINC TROPONIN I - Collect Date/Ti me: 08/04/2022 19:50 [facility] tem ID: [id number] [address] , [place], [id number] LOINC: 25147-0 Test Value Unit Reference Range Code Code System Flag Troponin I < 0.01 ng/ml L=0.00 H=0.04 95372-1 LOINC APTT - Collect Date/Time: 19:50 [facility] tem ID: [id number] [address] , [place], [id number] LOINC: 48678-2 Test Value Unit Reference Range Code Code System Flag APTT 24.9 SEC L=24.0 H=32.0 39556-3 LOINC PROTIME - Collect Date/Time: 08/04/2022 19:50 [facility] tem ID: [id number] [address] , [place], [id number] LOINC: 5902-2 Test Value Unit Reference Range Code Code System Flag Protime 9.9 SEC L=9.5 H=12.1 INR 0.9 6301-6 LOINC AMMONIA - Collect Date/Time: 08/04/2022 19:50 [facility] tem ID: [id number] [address] , [place], [id number] LOINC: 89240-6 Test Value Unit Reference Range Code Code System Flag Ammonia < 9 umol/L L=9 H=33 85104-1 LOINC ETHANOL BLOOD MED (ALCOHOL) - Collect Date/Time: 08/04/2022 19:50 [facility] tem ID: [id number] [address] , [place], [id number] LOINC: 5643-2 Test Value Unit Reference Range Code Code System Flag ETHANOL,MEDICAL 300 mg/dL L=0 H=10 5643-2 LOINC H MAGNESIUM - Collect Date/Alhaji e: 08/04/2022 19:50 [facility] tem ID: [id number] [address] [facility], [place], [id number] LOINC: 33170-5 Test Value Unit Reference Range Code Code System Flag Magnesium 2.4 mg/dL L=1.7 H=2.2 14034-2 LOINC H Social History Type Status Start Date End Date Code Code Syst em Smoking History Current every day smoker 524480874 SNOMED CT Smoking History Never smoker (Never Smoked) 621006425 SNOMED CT Sex Male Hospital Discharge Instructions [...] System No Known Drug Allergies Moderate Active 165741583 SNOMED-CT Plan of Treatment No Data Found Encounters Encounter Diagnosis Start Date Code Code Sys tem Alcohol dependence with withdrawal, unspecified 2021 SNOMED-CT Personal Care Team Section Performer Name Performer Role Active Date Inactive Da te Discharge Summary Notes [facility] ER RECORD FINAL Scanned image
--- OUTSIDE RECORDS SUMMARY | 2024-11-22 23:54 | XMS_ITS | Clinical Summary ---
Author Organization [place] Address [facility] [place] [address] Care Team Providers Care Boat Wrapper Name Role Phone 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 Gender Identity Not on file Sexual Orientation [...] and gender (Zuleyma et al., NEJM, DOI: 10.1056/[id number]) Blood STRUCTURE OF RIGHT UPPER LIMB / Unknown Venipuncture / Unknown 06/07/2022 4:39 PM CDT 06/07/2022 4:43 PM CDT us Brad Cummings MD LAB - BLOOD ORDERABLES Fi nal Result LABORATORY [facility] Acute Care Lab [address] [facility] (1st floor, no room number) [place] [address], [facility] [phone] from Last 3 Months or Most Recently Relevant to Health Maintenance Care Teams Boat Wrapper Relationship Specialty Start Date End Date Clinic - [facility] [address] [place] [address] PCP - General Internal Medicine 12/18/19
--- OUTSIDE RECORDS SUMMARY | 2024-11-22 23:54 | XMS_ITS | Clinical Summary ---
Author Organization [employer] [facility] Address [place], [place] [address] Care Team Providers Care Retail Field Supervisor Name Role Phone Katerina Jules Primary Care [...] on file Legal Sex Male 5:23 AM NETWORK ENGINEER ADMINISTRATOR Gender Identity Not on file Sexual Orientation Not on file Obstetrics History Last Filed Vital Signs Vital Sign Reading Time Taken Comments Blood Pressure 132/86 04/21/2024 10:15 AM CDT Pulse 92 04/21/2024 10:15 AM CDT Temperature 36.4 C (97.6 F) 12/03/2023 10:30 PM NETWORK ENGINEER ADMINISTRATOR Respiratory Rate 31 12/03/2023 11:30 PM NETWORK ENGINEER ADMINISTRATOR Oxygen Saturation 99% 04/21/2024 10:15 AM CDT Inhaled Oxygen Concentration - - Weight 87.1 kg (192 lb) 04/21/2024 10:15 AM CDT Height 180.3 cm (5' 11) 01/12/2024 11:34 AM NETWORK ENGINEER ADMINISTRATOR Body Mass Index 26.78 01/12/2024 11:34 AM NETWORK ENGINEER ADMINISTRATOR Plan of Treatment Health Maintenance Due Date [...] ANTI HIV 1/2 Routine 01/12/2024 12:06 PM NETWORK ENGINEER ADMINISTRATOR Screen for STD (sexually transmitted disease) ANTI HCV Routine 01/12/2024 12:06 PM NETWORK ENGINEER ADMINISTRATOR Need for hepatitis C screening test from Last 3 Months or Most Recently Relevant to Health Maintenance Results * ANTI HCV (01/12/2024 12:06 PM NETWORK ENGINEER ADMINISTRATOR) HEPATITIS C ANTIBODY Non-Reacti ve Non-React jared 01/12/2024 10:25 PM NETWORK ENGINEER ADMINISTRATOR [facility] Comment:Please note, per www .CDC.gov: If a patient is known to be at high risk of HCV infection, or is symptomatic, and the physician's suspicion of HCV infection is high, HCV RNA testing is often employed and is of diagnostic value, even after an initial negative anti-HCV test result. Blood BLOOD SPECIMEN / Unknown Venipuncture / Unknown 01/12/2024 12:06 PM NETWORK ENGINEER ADMINISTRATOR 01/12/2024 12:06 PM NETWORK ENGINEER ADMINISTRATOR Katerina PINA SEND OUTS Final Result Performing Organization Address [facility] Co de Phone Number [facility] [address] [place] [address], * ANTI HIV 1/2 (01/12/2024 12:06 PM NETWORK ENGINEER ADMINISTRATOR) Pathologist [facility] HIV-1/HIV-2 SCREEN Non-Reacti ve Non-Reacti ve 01/12/2024 10:26 PM NETWORK ENGINEER ADMINISTRATOR [facility] Comment:HIV-1 p24 and HIV-1/ HIV-2 Ab Not Detected. Blood BLOOD SPECIMEN / Unknown Venipuncture / Unknown 01/12/2024 12:06 PM NETWORK ENGINEER ADMINISTRATOR 01/12/2024 12:06 PM NETWORK ENGINEER ADMINISTRATOR Katerina PINA SEND OUTS Final Result Performing Organization Address City/[facility]/ZIP Co de Phone Number [facility] [address] [place] [address], from Last 3 Months or Most Recently Relevant to Health Maintenance Advance Directives * Full Code (Latest Code Status on File) Date Activated Date Inactivated Comments 01/04/2011 9:55 PM 01/05/2011 5:34 PM Care Teams Retail Field Supervisor Relationship Specialty Start [place] [address] [place] [address] PCP - General Physician Project Manager 01/12/24
--- OUTSIDE RECORDS SUMMARY | 2024-11-22 23:54 | XMS_ITS | Encounter Summary ---
Author Organization [place] Address [address] [place] [address]. [place] [address] Care Team Providers Care Tester Regulator Name Role Phone 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 [address] [place], [place] [address] PCP - General Internal Medicine 12/18/19 documented as of this encounter
[2024-11-23 00:02] LABS: Albumin* 4.5 g/dL (3.3-5.0)
[2024-11-23 00:03] LABS: Basophils Absolute Auto 0.02 K/uL (0.00-0.30); Basophils Percent Auto 0.3 % (0.0-3.0); Chloride* 108 mmol/L (96-114); Eosinophils Absolute Auto 0.08 K/uL (0.00-0.50); Eosinophils Percent Auto 1.3 % (0.0-7.0); Hematocrit 45.3 % (37.0-53.0); Hemoglobin* 16.3 gm/dL (13.5-17.5); Immature Granulocytes Abs Auto 0.03 K/uL (0.00-0.30); Immature Granulocytes Pct Auto 0.5 %; Lymphocytes Percent Auto 43.6 % (20-44); Mean Corpuscular HGB Conc 36 gm/dL (32-36); Mean Corpuscular Hemoglobin 32 pg (26-34); Mean Corpuscular Volume 90 fL (80-100); Monocytes Percent Auto 7.6 % (0.0-11.0); Neutrophils Absolute Auto 2.89 K/uL (1.7-7.0); Neutrophils Percent Auto 46.7 % (42.0-72.0); Platelet Count* 346 K/uL (140-440); Red Blood Count 5.04 m/uL (4.30-5.90); Sodium* 145 mmol/L (135-149); White Blood Count* 6.19 K/uL (4.50-11.00)
[2024-11-23 00:05] LABS: Anion Gap 12 mEq/L (7-15); Aspartate Amino Transferase* 40 U/L (12-35); Bilirubin Direct* 0.3 mg/dL (0.0-0.5); Bilirubin Total* 0.4 mg/dL (0.1-1.5); Carbon Dioxide* 25 mmol/L (20-32); Creatinine* 1.1 mg/dL (0.5-1.5); Estimated Glomerular Filt Rate 89 ml/min; Total Protein* 7.6 g/dL (6.0-8.3)
[2024-11-23 00:06] LABS: Alanine Aminotransferase* 35 U/L (4-50); Alkaline Phosphatase* 93 U/L (40-150); Blood Urea Nitrogen* 13 mg/dL (5-24); Calcium* 9.1 mg/dL (8.4-10.6); Glucose* 101 mg/dL (60-115); INR 0.85 (0.91-1.10); Lipase* 202 U/L (23-300); Partial Thromboplastin Time* 25 Seconds (23-33); Prothrombin Time 12.1 Seconds; Slide Review Reflex No
[2024-11-23 00:50] LABS: Ethanol* 0.39 % (0.01-0.03)
[2024-11-23 01:45] VITALS: BP 146/100; PULSE 82; RESP 18; O2SAT 100
[2024-11-23] MEDS: ONDANSETRON ODT 4 MG TAB PO (01:55)
[2024-11-23 02:03] VITALS: BP 146/100; PULSE 82; RESP 18; TEMP 36.7
== END 2024-11-23 02:03 | disposition home or self-care (01) ==
PROVIDERS: Family Medicine; Emergency Provider Family Medicine
DX: F10.129 Alcohol abuse with intoxication, unspecified (principal); R41.82 Altered mental status, unspecified
CPT/HCPCS: 36415; 80053; 82077; 82248; 83690; 85025; 85610; 85730; 94761; 99283; 99284; A9153; A9270

== ENCOUNTER 2024-12-14 01:41 | Emergency (ER) | payer BC, SELFPAY ==
--- OUTSIDE RECORDS SUMMARY | 2024-12-14 01:44 | XMS_ITS | Clinical Summary ---
Author Organization [facility] Address [place], [place] [address] Care Team Providers Care Cancer Registry Coordinator Name Role Phone Katerina Jules Primary Care [...] Date Smoking Tobacco: Every Day Cigarettes 0.5 12.1 Started: 2012 Smokeless Tobacco: Never Tobacco Cessation:Ready [...] Ambulatory Vulnerability No t on file 12/03/2023 Utilities Answer Date Recorded Do you have trouble paying f or utilities (for example, heat, electricity, water, phone)? 1 01/12/2024 Sex and Gender Information Value Date Recorded Sex Assigned at Not on file Legal Sex Male 5:23 AM SUPPLY CHAIN ANALYST Gender Identity Not on file Sexual Orientation Not on file Obstetrics History Last Filed Vital Signs Vital Sign Reading Time Taken Comments Blood Pressure 132/86 04/21/2024 10:15 AM CDT Pulse 92 04/21/2024 10:15 AM CDT Temperature 36.4 C (97.6 F) 12/03/2023 10:30 PM SUPPLY CHAIN ANALYST Respiratory Rate 31 12/03/2023 11:30 PM SUPPLY CHAIN ANALYST Oxygen Saturation 99% 04/21/2024 10:15 AM CDT Inhaled Oxygen Concentration - - Weight 87.1 kg (192 lb) 04/21/2024 10:15 AM CDT Height 180.3 cm (5' 11) 01/12/2024 11:34 AM SUPPLY CHAIN ANALYST Body Mass Index 26.78 01/12/2024 11:34 AM SUPPLY CHAIN ANALYST Plan of Treatment Health Maintenance Due Date Last Done Comments Pneumococcal series for age 6-49 (1 of 2 - PCV) 01/17/2007 Tetanus booster 01/06/2021 01/06/2011 Lipids for age [...] ANTI HIV 1/2 Routine 01/12/2024 12:06 PM SUPPLY CHAIN ANALYST Screen for STD (sexually transmitted disease) ANTI HCV Routine 01/12/2024 12:06 PM SUPPLY CHAIN ANALYST Need for hepatitis C screening test from Last 3 Months or Most Recently Relevant to Health Maintenance Results * ANTI HCV (01/12/2024 12:06 PM SUPPLY CHAIN ANALYST) HEPATITIS C ANTIBODY Non-Reacti ve Non-React jared 01/12/2024 10:25 PM SUPPLY CHAIN ANALYST [facility] Comment:Please note, per www .CDC.gov: If a patient is known to be at high risk of HCV infection, or is symptomatic, and the physician's suspicion of HCV infection is high, HCV RNA testing is often employed and is of diagnostic value, even after an initial negative anti-HCV test result. Blood BLOOD SPECIMEN / Unknown Venipuncture / Unknown 01/12/2024 12:06 PM SUPPLY CHAIN ANALYST 01/12/2024 12:06 PM SUPPLY CHAIN ANALYST Katerina PINA SEND OUTS Final Result Performing Organization Address [facility] Co de Phone Number [facility] [address] [place] [address], * ANTI HIV 1/2 (01/12/2024 12:06 PM SUPPLY CHAIN ANALYST) Pathologist [facility] HIV-1/HIV-2 SCREEN Non-Reacti ve Non-Reacti ve 01/12/2024 10:26 PM SUPPLY CHAIN ANALYST [facility] Comment:HIV-1 p24 and HIV-1/ HIV-2 Ab Not Detected. Blood BLOOD SPECIMEN / Unknown Venipuncture / Unknown 01/12/2024 12:06 PM SUPPLY CHAIN ANALYST 01/12/2024 12:06 PM SUPPLY CHAIN ANALYST Katerina PINA SEND OUTS Final Result Performing Organization Address City/[facility]/ZIP Co de Phone Number [facility] [address] [place] [address], from Last 3 Months or Most Recently Relevant to Health Maintenance Advance Directives * Full Code (Latest Code Status on File) Date Activated Date Inactivated Comments 01/04/2011 9:55 PM 01/05/2011 5:34 PM Care Teams Cancer Registry Coordinator Relationship Specialty Start [place] [address] [place] [address] PCP - General Physician Prototype Carpenter 01/12/24
--- OUTSIDE RECORDS SUMMARY | 2024-12-14 01:44 | XMS_ITS | Encounter Summary ---
Author Organization [place] Address [address] [place] [address]. 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
--- OUTSIDE RECORDS SUMMARY | 2024-12-14 01:44 | XMS_ITS | Clinical Summary ---
Author Organization [place] Address [facility] [place] [address] Care Team Providers Care Hand Packager Name Role Phone 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 Gender Identity Not on file Sexual Orientation [...] 01/06/2021 01/06/2011 COVID-19 Vaccine ( - season) 2024 INFLUENZA VACCINE (#1) 2024 PHQ-2 (once per calendar year) 2024 GLUCOSE 06/07/2025 06/07/2022, 08/09, 06/18/2021, Additional history exists ZOSTER IMMUNIZATION (1 of 2) 01/17/2038 RSV VACCINE (1 - 1-dose 75+ series) [...] and gender (Zuleyma et al., NEJ, DOI: 10.1056/[id number]) Blood STRUCTURE OF RIGHT UPPER LIMB / Unknown Venipuncture / Unknown 06/07/2022 4:39 PM CDT 06/07/2022 4:43 PM CDT us Brad Cummings MD LAB - BLOOD ORDERABLES Fi nal Result LABORATORY [facility] Acute Care Lab [address] (1st floor, no room number) [place] [address], [facility] [phone] from Last 3 Months or Most Recently Relevant to Health Maintenance Care Teams Hand Packager Relationship Specialty Start Date End Date Clinic - [facility] [address] [place] [address] PCP - General Internal Medicine 12/18/19
--- OUTSIDE RECORDS SUMMARY | 2024-12-14 01:44 | XMS_ITS | Referral Summary ---
Author Organization [place] Address [facility] [place] [address] Care Team Providers Care Lugger Name Role Phone 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 Gender Identity Not on file Sexual Orientation [...] and gender (Zuleyma et al., NEJ, DOI: 10.1056/[id number]) Blood STRUCTURE OF RIGHT UPPER LIMB / Unknown Venipuncture / Unknown 06/07/2022 4:39 PM CDT 06/07/2022 4:43 PM CDT us Brad Cummings MD LAB - BLOOD ORDERABLES Fi nal Result LABORATORY [facility] Acute Care Lab [address] [facility] Lab (1st floor, no room number) [place] [address], [facility] [phone] from Last 3 Months or Most Recently Relevant to Health Maintenance Care Teams Lugger Relationship Specialty Start Date End Date Clinic - [address] [place] [address] PCP - General Internal Medicine 12/18/19
[2024-12-14 01:48] VITALS: BP 130/95; PULSE 91; RESP 18; TEMP 36.7; O2SAT 99; BMI 24.4
--- NOTE | 2024-12-14 02:06 | ED.ALCOHOL ---
HPI - Alcohol General Date Seen: 12/14/24 Chief Complaint: Alcohol/Intoxication Stated Complaint: Intoxication Time Seen by Provider: 12/14/24 01:59 Source: patient Mode of arrival: ambulatory Limitations: altered mental status History of Present Illness HPI narrative: 34-year-old chronic alcoholic who is dropped off intoxicated. He drank an undisclosed amount of vodka tonight. He comes in drinking a bottle of Kambucha. No nausea or vomiting. He says that alcohol is killing him and I agreed with him. Apparently he has been in outpatient treatment program but stopped going because he tells me that they spent more time talking about [employer] and how to get drunk on cough syrup than they did helping him. He does complain of some epigastric pain and has received a GI cocktail on previous visits. He does not have a local provider. Every visit to the ER involves acute intoxication. He was here last about two weeks ago and had a full lab workup with normal findings. Tonight he specifically asks for saline, a banana bag, and Valium. He has never been to inpatient treatment. He tells me that his correctional officer captain wants him to go back to outpatient treatment. In the past he has always refused to go to detox. He acknowledges depression but is not suicidal. He never follows up in the clinic and is on no medication for anxiety or depression. He denies any other health problems. He is unemployed. He does have a home and believes that he can find a sober regional intermodal truck driver to take him there. Related Data Home Medications ?Medication ?Instructions ?Recorded ?Confirmed No Known Home Medications 11/22/24 12/14/24 Allergies Allergy/AdvReac Type Severity Reaction Status Date / Time No Known Drug Allergies Allergy Verified 12/14/24 01:59 Review of Systems Narrative Review of systems is outlined above otherwise noted to be negative. [facility] Medical History (Updated 12/14/24 @ 02:21 by Ulises Miller MD) Chronic alcohol abuse ?F10.10 - Alcohol abuse, uncomplicated (ICD-10) Surgical History No significant past surgical history Social History Smoking Status: Current every day smoker What tobacco products do you use: cigarettes Smoking packs per day: 1 Smoking cigarettes per day: 20.0 Years smoked: 6 Smoking pack-years: 6.00 Do you use any of these nicotine containing products: None Second hand tobacco smoke exposure: Yes How often do you have a drink containing alcohol: 4 or more times a week How many standard drinks containing alcohol do you have on a typical day: 10 or more How often do you have six or more drinks on one occasion: Daily or almost daily AUDIT-C Alcohol total score: 12 Non-prescribed substance use: marijuana (any form) service: No Exam Narrative: Exam Narrative: Vitals noted. He has grossly intoxicated and is slurring his speech. He is awake and alert and in no respiratory distress. HEENT: Conjunctiva clear. Neck is supple without adenopathy. Lungs: Clear to auscultation in all padilla. No wheezes, rales, rhonchi. Heart: Regular rate and rhythm without murmur. Abdomen: Mild epigastric tenderness. No guarding, rigidity, rebound. Bowel sounds are normal. No palpable masses. Extremities: No edema. Good distal pulses. Skin: No abnormalities noted of the exposed skin. Neurologic: Awake, alert, fully oriented. Neurologic exam is nonfocal. Const: Vital Signs, click to edit/add: Vital Signs - 24 hr 12/14/24 01:48 Temperature 98.0 F Pulse Rate [Pulse Oximeter] 91 Respiratory Rate 18 Blood Pressure [Ri ght Upper Arm] 130/95 H Pulse Oximetry 99 Oxygen Delivery Me thod Room Air Course Course ED Course: Patient is seen and examined. I statin talked with him for about 20 minutes. He is given a GI cocktail with improvement in his epigastric pain. There is no indication for antiemetics or IV fluids. He is drinking Kambucha and talking on his cell phone. He is given options of finding a sober regional intermodal truck driver to take him home of verses going to detox. Reevaluation(s) Reevaluation #1: Patient's picked up by a sober friend and taken home. He has contact information for his outpatient alcohol treatment program and his correctional officer captain. Vital Signs Vital signs: Initial Vital Signs Temperature 98.0 F 12/14/24 01:48 Temperature Source Temporal Artery Scan 12/14/24 01:48 Pulse Rate 91 12/14/24 01:48 Respiratory Rate 18 12/14/24 01:48 Blood Pressure 130/95 H 12/14/24 01:48 Blood Pressure Mean 106 H 12/14/24 01:48 Blood Pressure Position Sitting 12/14/24 01:48 Pulse Oximetry 99 12/14/24 01:48 Oxygen Delivery Method Room Air 12/14/24 01:48 Vital Signs Temperature 98.0 F 12/14/24 01:48 Pulse Rate 91 12/14/24 01:48 Respiratory Rate 18 12/14/24 01:48 Blood Pressure 130/95 H 12/14/24 01:48 Pulse Oximetry 99 12/14/24 01:48 Oxygen Delivery Method Room Air 12/14/24 01:48 Temperature 98.0 F 12/14/24 01:48 Pulse Rate 91 12/14/24 01:48 Respiratory Rate 18 12/14/24 01:48 Blood Pressure 130/95 H 12/14/24 01:48 Pulse Oximetry 99 12/14/24 01:48 Oxygen Delivery Method Room Air 12/14/24 01:48 Medications Administered Medications: Generic Name Dose Route Start Last Admin Trade Name Freq PRN Reason Stop Dose Admin Lidocaine/Aluminum/Magnesium/Simeth 30 ml 12/14/24 02:13 12/14/24 02:14 Gi Cocktail (Visc Lido/Antacid) 30 Ml PO 12/14/24 02:14 30 ml ONCE ONE Administration Discharge Plan Discharge Clinical Impression: Alcoholic intoxication Patient Disposition: Home w/ Parent or Adult Condition: Stable Additional Instructions: Go to treatment and stop drinking. Prescriptions: No Action No Known Home Medications Follow Up/Referrals: Provider,Not a Local [Primary Care Provider] - Stand Alone Forms: [employer] Info Instructions
[2024-12-14] MEDS: GI COCKTAIL (VISC LIDO/ANTACID) 30 ML PO (02:14)
--- OUTSIDE RECORDS SUMMARY | 2024-12-14 02:14 | XMS_ITS | Referral Summary ---
Author Organization [place] Address [facility] [place] [address] Care Team Providers Care Cargo Broker Name Role Phone [facility] Primary Care Provider Allergies No known [...] on file Legal Sex Male 4:18 AM DISPOSAL MAN Gender Identity Not on file Sexual Orientation [...] and gender (Zuleyma et al., NEJ, DOI: [id number]) Blood STRUCTURE OF RIGHT UPPER LIMB / Unknown Venipuncture / Unknown 06/07/2022 4:39 PM CDT 06/07/2022 4:43 PM CDT us Brad Cummings MD LAB - BLOOD ORDERABLES Fi nal Result LABORATORY [facility] [address] [facility] Lab (1st floor, no room number) [place] [address], [facility] [phone] from Last 3 Months or Most Recently Relevant to Health Maintenance Care Teams Cargo Broker Relationship Specialty Start Date End Date Clinic - [address] [place] [address] PCP - General Internal Medicine 12/18/19
--- OUTSIDE RECORDS SUMMARY | 2024-12-14 02:14 | XMS_ITS ---
Author Organization Unknown Address [facility] [place] [id number] Phone Care Team Providers Care Stripe Matcher Name Role Phone Unavailable Xwatchlist Unavailable FABBY COUCH Attending Unavailable Results CBC WITH DIFF - Collect Date /Time: 08/04/2022 19:50 [facility] tem ID: [id number] - [id number] [address] [facility], [id number] LOINC: 43947-2 Test Value Unit Reference Range Code Code [...] 1.40 10^3/uL L=0.90 H=2.90 731-0 LOINC Absolute [place] 0.82 10^3/uL L=0.30 H=0.90 742-7 LOINC Absolute Eos 0.05 10^3/uL L=0.05 H=0.50 711-2 LOINC Absolute Baso 0.05 10^3/uL L=0.00 H=0.30 704-7 LOINC Absolute IG 0.03 10^3uL 48775-3 LOINC %Seg 64.4 % 769-0 LOINC %Lymphs 21.1 % 737-7 LOINC %[place] 12.4 % 744-3 LOINC %Eos 0.8 % 714-6 LOINC %Baso 0.8 % 707-0 LOINC %IG 0.5 % L=0.0 H=5.0 30432-4 LOINC Manual Diff Not Indicated Rbc Morph PANEL COMP METABOLIC - Colle ct Date/Time: 08/04/2022 19:50 [facility] tem ID: [id number] - [id number] [address] , [place], [id number] LOINC: 84121-7 Test Value Unit Reference Range Code Code System Flag Glucose 114 mg/dL L=70 H=100 2345-7 LOINC H Bun 11 mg/dL L=9 H=21 3094-0 LOINC Creatinine 0.9 mg/dL L=0.8 H=1.5 2160-0 LOINC AGE 32 59529-5 LOINC eGFR 97 ml/min/m^2 L=60 H=130 68645-0 LOINC Sodium 145 mmol/L L=137 H=145 2951-2 LOINC Potassium 3.9 mmol/L L=3.5 H=5.0 2823-3 LOINC Chloride 108 mmol/L L=98 H=107 2075-0 LOINC H CO2 24 mmol/L L=22 H=31 2028-9 LOINC Anion Gap 17 1863-0 LOINC Calcium 9.5 mg/dL L=8.4 H=10.2 20678-9 LOINC AST 64 u/L L=17 H=59 1920-8 LOINC H ALT 66 u/L L=0 H=50 1742-6 LOINC H Alk Phos 77 u/L L=38 H=126 6768-6 LOINC Bili Total 0.2 mg/dL L=0.2 H=1.3 1975-2 LOINC Albumin 4.7 g/dL L=3.5 H=5.0 1751-7 LOINC T Protein 7.2 g/dL L=6.3 H=8.2 2885-2 LOINC TROPONIN I - Collect Date/Ti me: 08/04/2022 19:50 [facility] tem ID: [id number] - [id number] [address] , [place], [id number] LOINC: 07118-6 Test Value Unit Reference Range Code Code System Flag Troponin I < 0.01 ng/ml L=0.00 H=0.04 11465-7 LOINC APTT - Collect Date/Time: 19:50 [facility] tem ID: [id number] - [id number] [address] , [place], [id number] LOINC: 45939-3 Test Value Unit Reference Range Code Code System Flag APTT 24.9 SEC L=24.0 H=32.0 75199-7 LOINC PROTIME - Collect Date/Time: 08/04/2022 19:50 [facility] tem ID: [id number] - [id number] [address] , [place], [id number] LOINC: 5902-2 Test Value Unit Reference Range Code Code System Flag Protime 9.9 SEC L=9.5 H=12.1 INR 0.9 6301-6 LOINC AMMONIA - Collect Date/Time: 08/04/2022 19:50 [facility] tem ID: [id number] - [id number] [address] , [place], [id number] LOINC: 97128-7 Test Value Unit Reference Range Code Code System Flag Ammonia < 9 umol/L L=9 H=33 63537-6 LOINC ETHANOL BLOOD MED (ALCOHOL) - Collect Date/Time: 08/04/2022 19:50 [facility] tem ID: [id number] - [id number] [address] , [place], [id number] LOINC: 5643-2 Test Value Unit Reference Range Code Code System Flag ETHANOL,MEDICAL 300 mg/dL L=0 H=10 5643-2 LOINC H MAGNESIUM - Collect Date/Alhaji e: 08/04/2022 19:50 [facility] tem ID: [id number] - [id number] [address] [facility], [place], [id number] LOINC: 90059-4 Test Value Unit Reference Range Code Code System Flag Magnesium 2.4 mg/dL L=1.7 H=2.2 22194-2 LOINC H Social History Type Status Start Date End Date Code Code Syst em Smoking History Never smoker (Never Smoked) 983316015 SNOMED CT Smoking History Current every day smoker 182777239 SNOMED CT Sex Male Hospital Discharge Instructions [...] System No Known Drug Allergies Moderate Active 493056451 SNOMED-CT Plan of Treatment No Data Found Encounters Encounter Diagnosis Start Date Code Code Sys tem Alcohol dependence with withdrawal, unspecified 2021 SNOMED-CT Personal Care Team Section Performer Name Performer Role Active Date Inactive Da te Discharge Summary Notes [facility] ER RECORD FINAL Scanned image
--- OUTSIDE RECORDS SUMMARY | 2024-12-14 02:14 | XMS_ITS | Encounter Summary ---
Author Organization [place] Address [address] [place] [address]. 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
--- OUTSIDE RECORDS SUMMARY | 2024-12-14 02:14 | XMS_ITS | Clinical Summary ---
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 Gender Identity Not on file Sexual Orientation Not on file Obstetrics History Last Filed Vital Signs Vital Sign Reading Time Taken Comments Blood Pressure 132/86 04/21/2024 10:15 AM CDT Pulse 92 04/21/2024 10:15 AM CDT Temperature 36.4 C (97.6 F) 12/03/2023 10:30 PM COMPUTER ARTIST Respiratory Rate 31 12/03/2023 11:30 PM COMPUTER ARTIST Oxygen Saturation 99% 04/21/2024 10:15 AM CDT Inhaled Oxygen Concentration - - Weight 87.1 kg (192 lb) 04/21/2024 10:15 AM CDT Height 180.3 cm (5' 11) 01/12/2024 11:34 AM COMPUTER ARTIST Body Mass Index 26.78 01/12/2024 11:34 AM COMPUTER ARTIST Plan of Treatment Health Maintenance Due Date [...] HIV 1/2 Routine 01/12/2024 12:06 PM COMPUTER ARTIST Screen for STD (sexually transmitted disease) ANTI HCV Routine 01/12/2024 12:06 PM COMPUTER ARTIST Need for hepatitis C screening test from Last 3 Months or Most Recently Relevant to Health Maintenance Results * ANTI HCV (01/12/2024 12:06 PM COMPUTER ARTIST) HEPATITIS C ANTIBODY Non-Reacti ve Non-React jared 01/12/2024 10:25 PM COMPUTER ARTIST [facility] Comment:Please note, per www .CDC.gov: If a patient is known to be at high risk of HCV infection, or is symptomatic, and the physician's suspicion of HCV infection is high, HCV RNA testing is often employed and is of diagnostic value, even after an initial negative anti-HCV test result. Blood BLOOD SPECIMEN / Unknown Venipuncture / Unknown 01/12/2024 12:06 PM COMPUTER ARTIST 01/12/2024 12:06 PM COMPUTER ARTIST Katerina PINA SEND OUTS Final Result Performing Organization Address [facility] Co de Phone Number [facility] [address] [place] [address], * ANTI HIV 1/2 (01/12/2024 12:06 PM COMPUTER ARTIST) Pathologist [facility] HIV-1/HIV-2 SCREEN Non-Reacti ve Non-Reacti ve 01/12/2024 10:26 PM COMPUTER ARTIST [facility] Comment:HIV-1 p24 and HIV-1/ HIV-2 Ab Not Detected. Blood BLOOD SPECIMEN / Unknown Venipuncture / Unknown 01/12/2024 12:06 PM COMPUTER ARTIST 01/12/2024 12:06 PM COMPUTER ARTIST Katerina PINA SEND OUTS Final Result Performing Organization Address City/[facility]/ZIP Co de Phone Number [facility] [address] [place] [address], from Last 3 Months or Most Recently Relevant to Health Maintenance Advance Directives * Full Code (Latest Code Status on File) Date Activated Date Inactivated Comments 01/04/2011 9:55 PM 01/05/2011 5:34 PM Care Teams Prison Psychiatrist Relationship Specialty Start [place] [address] [place] [address] PCP - General Physician Telecommunicator 01/12/24
--- OUTSIDE RECORDS SUMMARY | 2024-12-14 02:15 | XMS_ITS | Clinical Summary ---
Author Organization [place] Address [facility] 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 Gender Identity Not on file Sexual Orientation [...] 01/06/2021 01/06/2011 COVID-19 Vaccine (1 - season) 2024 INFLUENZA VACCINE (#1) 2024 PHQ-2 (once per calendar year) 2024 GLUCOSE 06/07/2025 06/07/2022, 08/09, 06/18/2021, Additional history exists ZOSTER IMMUNIZATION (1 of 2) 01/17/2038 HPV IMMUNIZATION Aged Out No longer e [...] and gender (Zuleyma et al., NEJM, DOI: 10.1056/[id number]) Blood STRUCTURE OF RIGHT UPPER LIMB / Unknown Venipuncture / Unknown 06/07/2022 4:39 PM CDT 06/07/2022 4:43 PM CDT us Brad Cummings MD LAB - BLOOD ORDERABLES Fi nal Result [facility] [address] [facility] floor, no room number) [place] [address], [facility] [phone] from Last 3 Months or Most Recently Relevant to Health Maintenance Care Teams Carpentry Instructor Relationship Specialty Start Date End Date Clinic - [facility] [address] [place] [address] PCP - General Internal Medicine 12/18/19
[2024-12-14 02:22] VITALS: BP 125/74; PULSE 89; RESP 18; TEMP 36.7; O2SAT 99
== END 2024-12-14 02:40 | disposition home or self-care (01) ==
PROVIDERS: Emergency Provider Family Medicine
DX: F10.129 Alcohol abuse with intoxication, unspecified (principal)
CPT/HCPCS: 99282; 99283; A9270